=== PATIENT | female | born 1950 | race Caucasian/White ===

== ENCOUNTER → 2017-10-10 10:05 | Outpatient (CLI) | payer MEDICARE, BC, SELFPAY | PROVIDERS: Family Provider Specialist; PCP Physician Assistant; Visit Provider Nurse Practitioner Gerontology | DX: Z78.0 Asymptomatic menopausal state (principal); Z85.3 Personal history of malignant neoplasm of breast | CPT/HCPCS: 77080 ==

== ENCOUNTER → 2017-12-29 11:04 | Outpatient (CLI) | payer MEDICARE, BC, SELFPAY ==
--- NOTE | 2017-12-29 11:05 | DI.RAD.S_ITS ---
PROCEDURE: XR KNEE RT 3V INDICATIONS: RIGHT KNEE PAIN TECHNIQUE: 3 views of the knee were acquired. COMPARISON: [facility] [place], [place], BILATERAL KNEE MIN 4VW, 01/08/2014, 9:47. FINDINGS: Bones: No fractures or dislocations. No suspicious bony lesions. Severe medial compartment osteoarthritis shows progression in severity since prior study. Mild lateral and moderate femoral patellar degeneration also present. Soft tissues: Mild joint effusion. No suspicious soft tissue calcifications. IMPRESSION: Tricompartmental osteoarthritis, most severe medially. Small joint effusion. Dictated by: Roby Sumner M.D. on 12/29/2017 at 11:21 Approved by: Roby Sumner M.D. on 12/29/2017 at 11:24
== END ==
PROVIDERS: Family Provider Physician Assistant; PCP Physician Assistant; Visit Provider Physician Assistant
DX: M17.11 Unilateral primary osteoarthritis, right knee (principal); M25.461 Effusion, right knee; M25.561 Pain in right knee
CPT/HCPCS: 73562

== ENCOUNTER → 2018-02-02 08:52 | Outpatient (CLI) | payer MEDICARE, BC, SELFPAY ==
[2018-02-02 09:09] LABS: Add Manual Diff / Slide Review NO; Basophils Percent Auto 0.9 % (0-2); Eosinophils Percent Auto 0.2 % (2-4); Hematocrit 36.7 % (36-46); Hemoglobin 12.6 g/dL (12.0-16.0); Lymphocytes Percent Auto 16.7 % (25-40); Mean Corpuscular HGB Conc 34.5 % (30-36); Mean Corpuscular Hemoglobin 32.8 PG (26-34); Mean Corpuscular Volume 95.1 fL (80-100); Monocytes Percent Auto 9.1 % (3-14); Neutrophils Absolute Auto 9100 /uL (3000-5900); Neutrophils Percent Auto 73.1 % (50-75); Platelet Count 242 X10^3/uL (150-400); Red Blood Cell Count 3.86 X10^6/uL (4.0-5.2); Red Cell Distribution Width 12.5 % (11.6-14.8); White Blood Cell Count 12.4 X10^3/uL (4.5-11.0)
[2018-02-02 09:17] LABS: Alanine Aminotransferase 26 IU/L (9-52); Albumin 4.2 g/dL (3.5-5.0); Albumin Globulin Ratio 1.4 (1.0-2.8); Alkaline Phosphatase 44 U/L (38-126); Aspartate Aminotransferase 25 IU/L (14-36); BUN Creatinine Ratio 23.3 (6-22); Bilirubin Total 0.5 mg/dL (0.2-1.3); Blood Urea Nitrogen 14 mg/dL (7-17); Calcium 9.5 mg/dL (8.4-10.2); Carbon Dioxide 28 mmol/L (22-32); Chloride 103 mmol/L (98-107); Estimated Glomerular Filt Rate > 60.0 mL/min (>60); Glucose 95 mg/dL (80-110); HEMOLYSIS < 15 (0-50); Potassium 3.7 mmol/L (3.4-5.1); Sodium 140 mmol/L (137-145); Total Protein 7.2 g/dL (6.3-8.2)
== END ==
PROVIDERS: Family Provider Physician Assistant; PCP Physician Assistant; Visit Provider Nurse Practitioner Gerontology
DX: C50.912 Malignant neoplasm of unspecified site of left female breast (principal)
CPT/HCPCS: 36415; 80053; 85025

== ENCOUNTER → 2018-04-26 09:45 | Outpatient (CLI) | payer MEDICARE, BC, SELFPAY ==
--- NOTE | 2018-04-26 09:46 | DI.RAD.S_ITS ---
This blank DEXA report has been sent in error by the PACS system. The correct and complete report will be forthcoming in 1-2 days. Thank you for your patience and understanding. Dictated by: Edd Villela M.D. on 04/26/2018 at 12:19 Approved by: Edd Villela M.D. on 04/26/2018 at 12:19
== END ==
PROVIDERS: Family Provider Physician Assistant; PCP Physician Assistant; Visit Provider Physician Assistant
DX: M85.851 Other specified disorders of bone density and structure, right thigh (principal); Z78.0 Asymptomatic menopausal state; Z90.722 Acquired absence of ovaries, bilateral; E07.9 Disorder of thyroid, unspecified; Z87.891 Personal history of nicotine dependence
CPT/HCPCS: 77080; 77081

== ENCOUNTER → 2018-06-30 07:36 | Outpatient (CLI) | payer MEDICARE, BC, SELFPAY ==
--- NOTE | 2018-06-30 | DI.MG.S_ITS ---
BILATERAL DIGITAL SCREENING MAMMOGRAM 3D/2D WITH CAD: 06/30/2018 CLINICAL: Routine screening. Personal history of left breast cancer. Family history of breast cancer. Comparison is made to exams dated: 08/12/2017 mammogram, 06/29/2017 mammogram, and 06/28/2016 mammogram - [facility]. The tissue of both breasts is heterogeneously dense. This may lower the sensitivity of mammography. Current study was also evaluated with a Computer Aided Detection (CAD) system. There are a grouped calcifications in the left breast central to the nipple anterior depth. No other significant masses, calcifications, or other findings are seen in either breast. IMPRESSION: INCOMPLETE: NEEDS ADDITIONAL IMAGING EVALUATION The grouped calcifications in the left breast are indeterminate. Spot magnification views as well as additional views with possible ultrasound are recommended. This exam was interpreted at Station ID: [id number]. NOTE: For mammograms, a report in lay terms will be sent to the patient. Approximately 15% of breast malignancies will not be visualized mammographically. In the management of a palpable breast mass, a negative mammogram must not discourage biopsy of a clinically suspicious lesion. Electronically Signed By: Malia doran/raheel:06/30/2018 13:23:16 copy to: EMELIA COOK letter sent: Additional Imaging Needed ACR BI-RADS Category 0: Incomplete [id number]
[2018-06-30 09:09] LABS: Add Manual Diff / Slide Review NO; Basophils Absolute Auto 0 /uL (0-100); Basophils Percent Auto 0.6 % (0-2); Eosinophils Absolute Auto 200 /uL (0-450); Eosinophils Percent Auto 2.2 % (2-4); Hematocrit 39.4 % (36-46); Hemoglobin 13.2 g/dL (12.0-16.0); Lymphocytes Absolute Auto 2000 /uL (1100-4500); Lymphocytes Percent Auto 27.1 % (25-40); Mean Corpuscular HGB Conc 33.4 % (30-36); Mean Corpuscular Hemoglobin 32.6 PG (26-34); Mean Corpuscular Volume 97.7 fL (80-100); Monocytes Absolute Auto 700 /uL (0-900); Monocytes Percent Auto 9.8 % (3-14); Neutrophils Absolute Auto 4400 /uL (1500-7000); Neutrophils Percent Auto 60.3 % (50-75); Platelet Count 224 X10^3/uL (150-400); Red Blood Cell Count 4.04 X10^6/uL (4.0-5.2); Red Cell Distribution Width 13.2 % (11.6-14.8); White Blood Cell Count 7.3 X10^3/uL (4.5-11.0)
[2018-06-30 09:40] LABS: Alanine Aminotransferase 31 IU/L (9-52); Albumin 4.4 g/dL (3.5-5.0); Albumin Globulin Ratio 1.3 (1.0-2.8); Alkaline Phosphatase 50 U/L (38-126); Aspartate Aminotransferase 33 IU/L (14-36); BUN Creatinine Ratio 21.7 (6-22); Bilirubin Total 0.6 mg/dL (0.2-1.3); Blood Urea Nitrogen 13 mg/dL (7-17); Calcium 9.7 mg/dL (8.4-10.2); Carbon Dioxide 28 mmol/L (22-32); Chloride 101 mmol/L (98-107); Estimated Glomerular Filt Rate > 60.0 mL/min (>60); Globulin 3.4 g/dL (1.7-4.1); Glucose 96 mg/dL (80-110); HEMOLYSIS < 15 (0-50); Potassium 4.3 mmol/L (3.4-5.1); Sodium 138 mmol/L (137-145); Total Protein 7.8 g/dL (6.3-8.2)
[2018-06-30 09:45] LABS: Cholesterol 170 mg/dL (140-199); HDL Cholesterol 69 mg/dL (40-60); LDL Cholesterol Calculated 66 mg/dL (<100); Triglycerides 174 mg/dL (35-150)
[2018-06-30 09:46] LABS: Creatinine Urine Random 57.1 mg/dL
[2018-06-30 09:49] LABS: Microalbumin Urine Random 0.8 mg/dL (0-1.6)
== END ==
PROVIDERS: Family Provider Nurse Practitioner Gerontology; PCP Physician Assistant; Visit Provider Physician Assistant
DX: Z12.31 Encounter for screening mammogram for malignant neoplasm of breast (principal); Z80.3 Family history of malignant neoplasm of breast; C50.912 Malignant neoplasm of unspecified site of left female breast; I10 Essential (primary) hypertension; E78.5 Hyperlipidemia, unspecified
CPT/HCPCS: 36415; 77063; 77067; 80053; 80061; 82043; 82570; 85025

== ENCOUNTER → 2018-07-14 10:22 | Outpatient (CLI) | payer MEDICARE, BC, SELFPAY ==
--- NOTE | 2018-07-14 10:24 | DI.MG.S_ITS ---
UNILATERAL LEFT DIGITAL DIAGNOSTIC MAMMOGRAM 3D/2D WITH ADDITIONAL VIEWS POST LUMPECTOMY: 07/14/2018 CLINICAL: Additional evaluation requested from prior study. Personal history of breast cancer. Family history of breast cancer. Comparison is made to exams dated: 06/30/2018 mammogram, 06/29/2017 mammogram, and 06/28/2016 mammogram - [facility]. The tissue of left breast is heterogeneously dense. This may lower the sensitivity of mammography. There are rim calcification in the left breast central to the nipple anterior depth consistent benign with oil cysts. A biopsy clip is associated with these calcifications. No other significant masses or calcifications are seen in the breast. IMPRESSION: There is no mammographic evidence of malignancy. A 1 year screening mammogram is recommended. This exam was interpreted at Station ID: [id number]. NOTE: For mammograms, a report in lay terms will be sent to the patient. Approximately 15% of breast malignancies will not be visualized mammographically. In the management of a palpable breast mass, a negative mammogram must not discourage biopsy of a clinically suspicious lesion. Electronically Signed By: Malia Whitman M.D. lk/:07/14/2018 10:50:46 copy to: KAMILA HENDRIX letter sent: Normal Exam ACR BI-RADS Category 2: Benign Finding(s) 3342F
== END ==
PROVIDERS: Family Provider Nurse Practitioner Gerontology; PCP Physician Assistant; Visit Provider Physician Assistant
DX: R92.8 Other abnormal and inconclusive findings on diagnostic imaging of breast (principal); Z85.3 Personal history of malignant neoplasm of breast; Z80.3 Family history of malignant neoplasm of breast
CPT/HCPCS: 77065; G0279

== ENCOUNTER → 2018-08-24 11:37 | Outpatient (CLI) | payer MEDICARE, BC, SELFPAY ==
--- NOTE | 2018-08-24 | DI.MRI.S_ITS ---
PROCEDURE: MR KNEE RT WO CON INDICATIONS: Unilateral primary osteoarthritis, right knee TECHNIQUE: Noncontrast sagittal PD fast spin echo and T2 fast spin echo with fat saturation, sagittal 3-D FLASH with fat saturation; coronal T1 spin echo and PD fast spin echo with fat saturation, and axial PD fast spin echo with fat saturation through the knee. COMPARISON: None. FINDINGS: Image quality: Excellent. Menisci: There is medial meniscal flounce and suggestion of oblique tear involving anterior horn of medial meniscus extending to superior articulating surface. Peripheral displacement of medial meniscus is seen involving medial collateral ligament. Complex tear involving anterior horn of lateral meniscus is seen extending to both superior and inferior articulating surfaces. The meniscal root ligaments appear intact. Cruciate ligaments: The anterior and posterior cruciate ligaments appear intact. Medial structures: The medial collateral ligament appears intact. The posterior oblique ligament, semimembranosus tendon insertions, oblique popliteal ligament, and meniscocapsular junction appear intact. Visualized portions of the pes anserinus tendons appear normal. No abnormal bursal fluid. Lateral structures: The lateral collateral ligament, long and short heads of the biceps femoris tendon appear intact. The popliteus tendon appears normal; the popliteofibular ligament appears intact. The posterosuperior and anteroinferior popliteomeniscal fascicles appear intact. The arcuate and fabellofibular ligaments appear intact, on either side of the lateral inferior geniculate artery. Iliotibial band appears normal. Anterior structures: The quadriceps and patellar tendons appear intact. Patellar alignment is normal. No femoral trochlear dysplasia or ventral trochlear prominence. No edema in the infrapatellar fat pad. Bones and cartilage: Moderate to severe tricompartment osteoarthritis is seen most prominent in medial femoral tibial compartment with complete loss of articulating cartilage is, extensive subchondral sclerosis and edema, and prominent marginal osteophyte formation. No fracture or dislocation is noted. Moderate chondromalacia throughout the patellar cartilage is also seen. Joint space: There is small amount of joint fluid. No Velazquez's cyst. Normal appearing synovial plicae are incidentally noted. IMPRESSION: 1. [id number] tricompartmental osteoarthritis most prominent in medial femoral tibial compartment. No fracture or dislocation. Small to moderate joint effusion. No gross loose body. 2. Medial meniscal flounce and suggestion of oblique tear involving anterior horn of medial meniscus extending to superior articulating surface. Complex tear involving anterior horn of lateral meniscus extending to both superior and inferior articulating surfaces. 3. Cruciate ligaments are intact. Dictated by: Edd Villela M.D. on 08/24/2018 at 13:15 Approved by: Edd Villela M.D. on 08/24/2018 at 13:18
== END ==
PROVIDERS: PCP Physician Assistant; Visit Provider Orthopaedic Surgery
DX: M17.11 Unilateral primary osteoarthritis, right knee (principal); S83.271A Complex tear of lateral meniscus, current injury, right knee, initial encounter; M25.461 Effusion, right knee
CPT/HCPCS: 73721

== ENCOUNTER → 2018-08-31 11:19 | Outpatient (CLI) | payer MEDICARE, BC, SELFPAY | PROVIDERS: Family Provider Orthopaedic Surgery; PCP Physician Assistant; Visit Provider Physician Assistant | DX: Z01.810 Encounter for preprocedural cardiovascular examination (principal) | CPT/HCPCS: 93005 ==

== ENCOUNTER → 2018-09-27 09:34 | Outpatient (CLI) | payer MEDICARE, BC, SELFPAY ==
[2018-09-27 10:42] LABS: Hematocrit 38.8 % (36-46); Hemoglobin 13.2 g/dL (12.0-16.0); Mean Corpuscular HGB Conc 33.9 % (30-36); Mean Corpuscular Hemoglobin 33.1 PG (26-34); Mean Corpuscular Volume 97.7 fL (80-100); Platelet Count 240 X10^3/uL (150-400); Red Blood Cell Count 3.98 X10^6/uL (4.0-5.2); Red Cell Distribution Width 12.7 % (11.6-14.8); White Blood Cell Count 7.3 X10^3/uL (4.5-11.0)
[2018-09-27 10:51] LABS: Hemoglobin A1C% w Est Avg Glu 5.3 % (4.0-6.0)
[2018-09-27 10:58] LABS: Blood Urea Nitrogen 12 mg/dL (7-17); Calcium 9.6 mg/dL (8.4-10.2); Carbon Dioxide 31 mmol/L (22-32); Chloride 99 mmol/L (98-107); Estimated Glomerular Filt Rate > 60.0 mL/min (>60); Glucose 96 mg/dL (80-110); HEMOLYSIS < 15 (0-50); Potassium 4.1 mmol/L (3.4-5.1); Sodium 138 mmol/L (137-145)
[2018-09-27 11:32] LABS: Appearance Urine UA CLEAR; Bilirubin Urine UA NEGATIVE (NEGATIVE); Color Urine UA YELLOW; Glucose Urine UA NEGATIVE (Negative); Ketones Urine UA NEGATIVE (NEGATIVE); Leukocyte Esterase Urine UA NEGATIVE (NEGATIVE); Nitrite Urine UA NEGATIVE (Negative); Occult Blood Urine UA 1+ (Negative); Protein Urine UA NEGATIVE (Negative); Urobilinogen Urine UA 0.2 E.U./dL (0.2)
[2018-09-27 11:42] LABS: Bacteria Urine Occasional (0-1); Culture Indicated Urine Cult Not Indicated; RBC Urine 0-1/HPF (0-5/HPF); Squamous Epithelial Cell Urine 0-1 /HPF (0-5/HPF); WBC Urine 0-1/HPF (0-5/HPF)
== END ==
PROVIDERS: PCP Physician Assistant; Visit Provider Orthopaedic Surgery
DX: N39.0 Urinary tract infection, site not specified (principal); R73.9 Hyperglycemia, unspecified; Z01.818 Encounter for other preprocedural examination
CPT/HCPCS: 36415; 80048; 81001; 83036; 85027

== ENCOUNTER 2018-11-01 14:01 | Observation (INO) | payer MEDICARE, BC, SELFPAY ==
[2018-10-19 09:41] VITALS: BMI 28.8
[2018-10-31] VITALS (15 sets, daily range): BP systolic 91–134; BP diastolic 49–75; PULSE 59–77; RESP 10–18; TEMP 35.6–36.9; O2SAT 94–100; BMI 28.8
--- NOTE | 2018-10-31 06:00 | DI.RAD.S_ITS ---
PROCEDURE: XR KNEE RT 1TO2V INDICATIONS: post op TECHNIQUE: 2 view(s) of the knee acquired. COMPARISON: [facility], , XR KNEE RT 3V, 12/29/2017, 10:43. FINDINGS: Bones: Patient is status post knee joint arthroplasty. Hardware components are in expected positions. Visualized bony structures are intact. Soft tissues: Overlying postoperative changes are noted. IMPRESSION: Expected postoperative appearance Dictated by: Brown Camarillo M.D. on 11/01/2018 at 10:13 Approved by: Brown Camarillo M.D. on 11/01/2018 at 10:14
[2018-10-31] MEDS: LACTATED RINGERS 1,000 ML 42 ML IV ×2 (12:31→15:49)
[2018-10-31] MEDS: ACETAMINOPHEN 325 MG TABLET 975 MG PO ×2 (12:32→20:44)
[2018-10-31] MEDS: PREGABALIN 75 MG CAPSULE PO (12:32)
[2018-10-31] MEDS: CELECOXIB 200 MG CAPSULE PO (12:32)
[2018-10-31] MEDS: VANCOMYCIN 1,000 MG/200 ML PIGGYBACK 200 MG IV (12:44)
[2018-10-31] MEDS: fentaNYL 100 MCG/2 ML INJ IV (14:41)
[2018-10-31] MEDS: MIDAZOLAM 2 MG/2 ML VIAL IV (14:42)
--- NOTE | 2018-10-31 14:48 | PM.PREOP ---
Pre-operative Note Interval Note History & Physical reviewed/Exam performed by Physician: Yes Changes to H&P: No
--- NOTE | 2018-10-31 14:53 | P.OP_ITS ---
Operative Date/Time/Diagnoses Date of procedure: 10/31/18 Time of procedure: 14:59 Pre-op diagnosis: Right knee OA Post-op diagnosis: same Procedure & Clinicians Procedure: Right total knee arthroplasty Same procedure as scheduled: Yes Indications: The patient has had progressively worsening right knee pain with radiographic changes consistent with arthritis. Non-operative management has failed and the patient has requested total knee replacement. The risks, benefits and alternatives to surgery were discussed with the patient prior to proceeding. Risks discussed included, but were not limited to, failure to relieve pain, stiffness, infection, nerve damage, deep venous thrombosis, pulmonary embolism, stroke, coma, heart attack, permanent paralysis and , as well as the potential need for eventual revision of the prosthetic. Surgeon: Susan Faulkner Plastic Tile Setter: Jessica Chow Anesthesia Type: Spinal and Peripheral nerve block Operative Notes Findings: Severe right knee osteoarthritis, good stability Closure Type: primary Specimen(s): none sent Prosthetic devices, grafts, tissues, transplants, or devices: [facility] 2 size 5 femur, size 3 tibia, size 10 poly, 32 by7.5mm patella Applied: drain(s) Estimated Blood Loss (mL): 250 Blood products transfused: none Tourniquet time (min): 74 Procedure in detail: The patient was seen in the pre-operative area, where the patient identified the right knee as the operative site and this was marked with my initials. The patient received pre-operative antibiotics, and was taken to the operating room and placed on the operative table in the supine position. After satisfactory anesthesia, a production supervisor off shift out was performed. The right leg was encircled with a tourniquet about the proximal thigh, and the leg was prepared from the toes to the tourniquet with ChloroPrep in the usual fashion and draped through sterile drapes. The leg was elevated and exsanguinated with Eschmark bandage and the tourniquet inflated to [250] mmHg pressure. The knee was approached through an approximately 18 cm incision centered over the patella and carried into the knee through a medial parapatellar arthrotomy. A portion of the medial and lateral meniscus was resected. Soft tissue was carefully mobilized around the patella the patella was measured with a caliper. Bone was resected from the patella and the patellar height was reconstituted with up an appropriate sized patellar component. A cover was then placed on the patella. A small amount of additional medial and lateral meniscus was resected. The visionare guide fit well to the distal femur. It looked like an appropriate distal femoral cut and the cut was made without difficulty. The rotation was assessed and the appropriate size femoral guide was placed on the distal femur and finishing cuts were made. There was no evidence of notching. The anterior, posterior and chamfer cuts were then made. The posterior osteophytes and soft tissues were then removed. The posterior capsule was injected with part of a mixture of 60 ml 0.25% Marcaine mixed with 20 ml Exparel for post operative pain control. The remainder of this mixture was injected into the capsule and subcutaneous tissues during cement curing. The tibia was prepared and the visionaire guide fit well to the distal tibia. The rotation was assessed. The patient was placed in extension residual medial and lateral meniscus as well as any residual bone was carefully resected. [No] additional tibia was resected. Hemostasis was achieved especially posteriorly. Additional local was injected into the posterior capsule. The extension gap was assessed and additional releases for gap balancing were performed as necessary. It was checked with the gap hollow handle bench worker. The femoral component was trial was placed and the notch was finished. Trial tibial and femoral components were then placed and the knee placed through a range of motion. Range of motion was [0-130], with good stability throughout the range. The trials were then removed, and the tibia was finished. The bone was prepared with pulsatile lavage, and dried with a sponge. Cement was applied and the final prosthetics placed. Excess cement was removed during and after cement curing. A brief Betadine soak was performed. After confirming there was no extruded cement posteriorly, the final tibial insert was placed. The knee was copiously irrigated and the tourniquet deflated. Hemostasis was obtained with the Bovie. A drain was placed and brought out superolaterally. The capsule was closed with interrupted Vicryl suture. The subcutaneous layer was closed with barbed sutures, and the skin with a running 3-0 V-Lock suture and Surgical glue. An Aquacel Ag dressing was applied and the patient was taken to recovery having tolerated the procedure well. Complications: none Condition: stable Disposition: Acute Care Plan for aftercare: The patient will be maintained on a standard total knee replacement protocol with weight bearing as tolerated. The patient will receive aspirin and sequential compression devices for DVT prophylaxis. The patient will be discharged home when safe for the home environment.
[2018-10-31] MEDS: CEFAZOLIN 2 GM/100 ML FROZ.PIGGY IV ×2 (14:58→22:18)
--- NOTE | 2018-10-31 15:06 | SUR.PREOP ---
Block start time [1444] . Monitoring initiated and maintained throughout procedure. Oxygen and medications given per anesthesiologist instructions. Patient remained stable throughout procedure, no adverse reactions noted. Block end time [1453].
--- NOTE | 2018-10-31 15:33 | SUR.OPER ---
Supine on padded OR bed. Pillow under head, arms secured on padded armboards <90 degree abduction. Safety belt across torso. Non-operative leg secured with tape over blanket over lower leg. Operative leg secured in DeMayo/Adama positioner. Foam padded brace at thigh of operative leg.
[2018-10-31] MEDS: BUPIVACAINE 0.25% W/ EPI 30 ML VIAL 60 ML INJ (15:40)
[2018-10-31] MEDS: BUPIVACAINE LIPOSOME 266 MG/20 ML VIAL INJ (15:40)
--- NOTE | 2018-10-31 17:37 | SUR.PHASEI ---
1934 Dr. Faulkner spoke with patient. Patient comfortable, given ice chips/tolerated well.
--- NOTE | 2018-10-31 17:42 | SUR.PHASEI ---
report called to floor. O2 sat 91-95%; place on O2 at 2lnP. Resp unlabored; states that she brought her CPAP with her, will take to acute care. remains awake and appropriate.
--- NOTE | 2018-10-31 18:05 | SUR.PHASEI ---
1756 To room 216, clothing bag and CPAP to room, son brought in walker. A&O, denies pain/nausea, dressing remains cdi, SCDs on by AIRPLANE RENTAL CLERK. bed down and locked, call light within reach. Stable, skin warm and dry, resp unlabored. report updated.
--- NOTE | 2018-10-31 18:10 | PC.NURSE ---
Jessica shift note: Patient admitted to room 216 s/p Right TKA scheduled by Dr. Zhang. Patient awake, alert, and pleasant upon arrival. Oriented to room, environment, and plan of care. Call light within reach. Son at bedside providing supportive care.
[2018-10-31] MEDS: LACTATED RINGERS 1,000 ML 125 ML IV (18:29)
[2018-10-31] MEDS: ASPIRIN EC 81 MG TABLET PO (20:45)
[2018-10-31] MEDS: DOCUSATE 100 MG CAPSULE PO (20:45)
[2018-10-31] MEDS: SIMVASTATIN 40 MG TABLET PO (20:45)
[2018-10-31] MEDS: OXYCODONE IR 5 MG TABLET PO ×2 (20:46→23:22)
[2018-10-31] MEDS: HYDROMORPHONE 2 MG TABLET PO (21:32)
[2018-11-01] MEDS: HYDROMORPHONE 2 MG TABLET PO ×4 (00:37→14:53)
[2018-11-01] MEDS: OXYCODONE IR 5 MG TABLET PO ×2 (02:41→06:58)
[2018-11-01 03:25] VITALS: BP 118/59; PULSE 80; RESP 17; TEMP 36.6; O2SAT 95
[2018-11-01 05:38] LABS: Hematocrit 34.3 % (36-46); Hemoglobin 11.8 g/dL (12.0-16.0)
[2018-11-01] MEDS: CEFAZOLIN 2 GM/100 ML FROZ.PIGGY IV (06:35)
[2018-11-01 07:30] VITALS: BP 129/65; PULSE 77; RESP 16; TEMP 36.6; O2SAT 100
--- NOTE | 2018-11-01 07:30 | PM.PNPO.1 ---
Subjective Date Patient Seen: 11/01/18 Time Patient Seen: 07:30 Interval history: POD #1 status post right total knee arthroplasty with Dr. Faulkner. She noted some pain control issues last night and required Dilaudid. She got behind on taking her pain medication. She has not been up with physical therapy yet. She is eating and voiding without difficulty or assistance. Exam Vital Signs (past 8 hours): - 10/31/18 23:50 11/01/18 03:25 Temperature 97.9 F 97.9 F Pulse Rate 67 80 Respiratory Rate 16 17 Blood Pressure 126/66 118/59 L Pulse Oximetry 97 95 Oxygen Delivery Method Nasal Cannula Oxygen Flow Rate 0 Narrative Exam Narrative: Patient lying in bed in no acute distress. She is alert and oriented x3. Dressing on right knee is CDI. Jovany wrap in place. Hemovac drain in place. Sedation intact light touch throughout bilateral lower extremities. Calves are soft, compressible, nontender bilaterally. Objective Labs Result Diagrams: 11/01/18 04:55 Labs: Laboratory Results - last 24 hr 11/01/18 04:55 Hgb 11.8 L Hct 34.3 L Assessment & Plan Post-op (1) S/P total knee arthroplasty: (2) Hyperlipidemia: Postoperative Procedures Operation Date: 10/31/18 13:45 Actual Procedures Side Surgeon p Total Knee Arthroplasty Right Susan Faulkner MD Patient will mobilize with physical therapy today. Patient was instructed to stay ahead of the pain today. She is mobilizing safelyh adequate pain control today she could go home. If not DC tomorrow.
[2018-11-01] MEDS: ONDANSETRON 4 MG ODT PO (08:14)
[2018-11-01] MEDS: MAGNESIUM OXIDE 400 MG TABLET PO (08:16)
[2018-11-01] MEDS: ASPIRIN EC 81 MG TABLET PO (08:16)
[2018-11-01] MEDS: DOCUSATE 100 MG CAPSULE PO (08:16)
[2018-11-01] MEDS: MULTIVITAMIN 1 TABLET 1 TAB PO (08:16)
[2018-11-01] MEDS: TAMOXIFEN 10 MG TABLET 20 MG PO (08:16)
[2018-11-01] MEDS: MELOXICAM 7.5 MG TABLET 15 MG PO (08:16)
[2018-11-01] MEDS: ACETAMINOPHEN 325 MG TABLET 975 MG PO ×2 (08:17→14:53)
--- NOTE | 2018-11-01 09:21 | PT.IIE ---
Current Diagnoses Hyperlipidemia, unspecified (10/31/18) Unilateral primary osteoarthritis, right knee (10/31/18) Presence of unspecified artificial knee joint (10/31/18) Surgery Performed Operation Date: 10/31/18 13:45 Actual Procedures p Total Knee Arthroplasty(Right) - Susan Faulkner MD Surgical History (Last Updated 10/19/18 @ 10:19 by Jo Ann Zelaya, RN) History of colonoscopy (Acute) Hx of lymph node excision (Acute) Anesthesia (Resolved) History of total hip arthroplasty (Resolved 12/2014) Hx of tonsillectomy (Resolved Unknown) History of cataract removal with insertion of prosthetic lens History of lumpectomy (~07/2015) Status post surgery (08/30/16) Medical History (Last Updated 10/20/18 @ 08:07 by Jo Ann Zelaya RN) Essential hypertension (Chronic) Hyperlipidemia (Chronic 09/09/10) 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) H/O: hysterectomy (Acute) HTN (hypertension) (Acute) Irregular heartbeat (Acute) Osteoarthritis (Acute) Pneumonia (Acute) Retinal detachment, right (Acute ~11/2016) Sleep apnea (Acute) Breast cancer (Chronic ~2015) Shoulder pain (Chronic ~2015) Basal cell carcinoma of skin (Resolved 2012) Physical Therapy Inpatient Evaluation/Re-Eval M1 PT/OT-IP Prior Functional Status Start: 11/01/18 12:24 Freq: NEEDED Status: Active Protocol: Document 11/01/18 09:21 AB (Rec: 11/01/18 12:37 AB [id number]) Medical Review Prior Functional Status Medical History Reviewed Yes Communication able to make needs known Mobility and Gait pt stated that she is independent with all mobilities and ambulation without AD but occasionally uses a SPC first thing in the morning for stability Social History Household Members none Living Arrangements House Number of Floors (Floors) Two Floors Number of Stairs To Enter/Railing? pt stays on main level of the house has a ramp to enter Home Environment High Toilet Walk in Shower Built-In Shower Seat Home Equipment Front Wheel Walker Four Wheel Walker Manual Wheelchair Lift Recliner Grab Bars Near Toilet Grab Bars In Shower Employment Status Retired Additional Social History Comment son/pnhnyeoa-by-pky lives ~ 1 block away from pt and son stated that they can stay with her for the first few days if needed M2 PT-IP Current Condition Start: 11/01/18 12:24 Freq: NEEDED Status: Active Protocol: Document 11/01/18 09:21 AB (Rec: 11/01/18 12:37 AB [id number]) Physical Therapy Current Condition Current Condition Evaluation Date 11/01/18 Treatment Diagnosis s/p R TKA; difficulty in walking Onset Date 10/31/18 Precautions Other Precautions Falls Weight Bearing Status Weight Bearing Status Weight Bear as Tolerated M3 PT-IP Subjective Start: 11/01/18 12:24 Freq: NEEDED Status: Active Protocol: Document 11/01/18 09:21 AB (Rec: 11/01/18 12:37 AB [id number]) Subjective Physical Therapy Visit Type Type Initial Evaluation Visit Start Time 09:21 Visit Stop Time 10:06 Total Visit Minutes 45 Number of CHANGE HOUSE ATTENDANT Visits 0 Physical Therapy Visit Comments Patient Comments pt agreeable to do PT Therapy Pain Assessment Pain When Pain Assessed At Rest Pain Present Pain Present Pain Reported Location Right Knee Intensity 3 Scale Used increases to 5/10 with movement Pain Management Techniques Apply Cold Re-positioning Timing of Activity with Medications M4 PT-IP Mobility and Gait Start: 11/01/18 12:24 Freq: NEEDED Status: Active Protocol: Document 11/01/18 09:21 AB (Rec: 11/01/18 12:37 AB [id number]) PT-Bed Mobility Assessment Supine to Sit Supine to Sit Minimal Assistance 1 Person Assistance PT-Transfer Assessment Sit to and From Stand Sit to and from Stand Moderate Assistance 1 Person Assistance Use of Upper Extremities Equipment Transfer Assistive Device Gait Belt Front Wheeled Walker Orthotic/Prosthetic Devices or Brace: No Transfers Transfer Destination Chair Transfer Technique pt ambulated using FWW Transfer Ability Level of Assist Moderate Assistance 1 Person Assistance Use of Upper Extremities Gait Assessment Gait Gait Assistance Required: Moderate Assistance Distance (Feet) 12 Able to Maintain Weight Bearing Status Yes During Gait Assistive Devices Assistive Device Gait Belt Front Wheeled Walker Orthotic/Prosthetic Devices or Brace: No Gait Deviations General Gait Pattern Antalgic Decreased Stride Length Decreased Feet Clearance Step-to Gait Factors Limiting Gait Function Factors Limiting Gait Function Decreased Activity Tolerance Decreased Strength Limited Range of Motion Pain Poor Balance Poor Safety Awareness Comments Gait Comments pt ambulated from bed to the chair using FWW ~ 12 ft requiring mod A and cues. pt with unsteady gait and decrease R LE control requiring assist to stabilize RLE during ambulation. PT-Balance Assessment Sitting Balance and Reactions Static Sitting Balance Ability Good Dynamic Sitting Balance Ability Good Standing Balance and Reactions Static Standing Balance Ability Fair Dynamic Standing Balance Ability Poor Device Used FWW M5 PT-IP Objective Assessments Start: 11/01/18 12:24 Freq: NEEDED Status: Active Protocol: Document 11/01/18 09:21 AB (Rec: 11/01/18 12:37 [id number]) Orientation Orientation/Cognition Level of Alertness Alert Orientation Name Age Birthday Month Date Year Day of Week Place Situation Language Function Ability No Deficits Noted Safety Awareness Understands Safety Issues Gross Range of Motion Lower Extremity ROM Assessment Right Impaired Impairments R knee flexion: ~ 40 deg R knee extension: 15 degrees less to 0 Strength Lower Extremity Strength Assessment Right Impaired Hip 3+/5 Knee 3-/5 Coordination Assessment Gross Coordination Gross Coordination WNL Sensation Assessment Sensation Gross Sensation WNL Light Touch Intact Proprioception (Position) Intact M6 PT-IP Treatment Start: 11/01/18 12:24 Freq: NEEDED Status: Active Protocol: Document 11/01/18 09:21 AB (Rec: 11/01/18 12:37 [id number]) Physical Therapy Treatment Exercises Exercises Quad Sets Heel Slides Education Education Provided Precautions Weight Bearing Status Post-Op Packet Safety M7 PT-IP Assessment and Plan Start: 11/01/18 12:24 Freq: NEEDED Status: Active Protocol: Document 11/01/18 09:21 AB (Rec: 11/01/18 12:37 [id number]) PT Summary Assessment and Plan Potential Rehabilitation Potential Good Status of Condition at Evaluation Evolving Summary Impairments Pain ROM Strength Balance Coordination Sensation Tone Cognition Bed Mobility Transfers Gait Activity Tolerance Assessment Summary pt requiring mod A with mobility and unable to tolerate much activity this morning. d/c plan is go home but pt is not ready to go home as of this morning. will have to assess how pt performs this afternoon. pt plans to go home with family to assist her. caregiver training will be conducted when appropriate. Goals Bed Mobility Goal Standby Assistance Transfer Goal Standby Assistance Front Wheeled Walker Gait Goal Standby Assistance Front Wheel Walker Gait Distance 200 Days to Meet Goals 5 Frequency of Treatment Frequency Of Treatment Twice a Day Treatment Plan Physical Therapy Treatment Plan Bed Mobility Training Transfer Training Gait Training Therapeutic Exercise Balance Retraining Post Op Education Discharge Planning Hot or Cold Pack Neuromuscular Re-ed Coordination Retraining Manual Therapy Other Recommendations and Next Treatment ambulation, caregiver training Focus , bed mobility Recommendations To Nursing Amount of Assist Needed 1 Person Assist Discharge Recommendations PT Discharge Recommendations Home with Assistance Outpatient PT
--- NOTE | 2018-11-01 10:30 | CM.DANOTE ---
DCP/Assessment: Reviewed chart. Patient is a 67yr old female admitted to [facility] for right TKA performed on 11-01-[address] Faulkner. PCP listed is Jyothi Monzon. Primary payor is 1)Medicare 2)[facility]. Met with patient and son/Merlin at bedside explained CM/SW role. Patient sitting in recliner alert and oriented. Patient seen by therapy this AM and it is anticipated that patient will most likely d/c tomorrow. Patient has been having a lot of pain today. Therapy does plan to see patient again this afternoon. Patient reports that she has all needed DME and family close by for support. Patient planning on going to outpatient therapy at [facility] after discharge. P: Home when stable. CM team to continue to follow closely if needs were to arise. Current plan is for patient to go home with supportive family and outpatient therapy. MANISH Sierra Discharge Planning/Care Management CM Discharge Assessment Start: 11/01/18 10:25 Freq: Status: Active Protocol: Document 11/01/18 10:25 KJS (Rec: 11/01/18 10:30 KJS [id number]) Discharge Planning Assessment Assigned Labor Service Representative MANISH Sierra Contact Information Merlin Schwab (son) [phone] Advance Directives? No: Declines further information History Provided By Patient Family Member Medical Record Prior Living Arrangements House Household Members none Type of transporation used prior to Drives own vehicle admit Independent with ADL's Yes Is patient alert and oriented? Yes Caregiver for Another No DME Already Rented / Owned FWW / Walker Comment Has ramp to enter residence if needed. Patient/Family Preference OP PT Therapy Barriers to Discharge No Discharge Plan Home Transportation Arrangement Family to provide transport. Whiteboard Updated in Patient Room with Yes name and ext. # of Labor Service Representative Review Status In Process Next Review Type Continued Stay Review Pre-Anesthesia Assessment Start: 10/19/18 09:41 Freq: Status: Active Protocol: Document 10/19/18 09:41 CAB (Rec: 10/19/18 10:40 CAB [id number]) Pre-Anesthesia Assessment Patient Information Reviewed Via Phone Assessment Assessment Completed With Patient Diagnostic Results BMP/CMP CBC EKG Urinalysis Other Comment A1c. Labs/EKG @ [facility] 09/27/18. EKG from PCP 08/2018 - WNL scanned to record Primary Care Provider Jyothi Monzon Seen Specialist in Last 12 Months Yes Specialist Seen Oncologist Orthopedist Primary Language [place] Fuel Retrofitting Technician Required No Height 162.56 cm Weight 76.204 kg Body Mass Index (BMI) 28.8 Hearing Ability Normal Visual Assist Glasses Dentition Type Teeth, Natural Present Barriers to Learning None Other Aids Yes: CPAP Hx Anesthesia Reactions No Hx Family Anesthesia Reaction No Hx Malignant Hyperthermia No Hx Blood Transfusions No Anesthesia Review Requested No Maternal Fetal Physician No alcohol intake current alcohol intake frequency a few times a week Smoking Status Never smoker Substance Use Type does not use Pain Present Pain Reported Musculoskeletal Symptoms Difficulty Walking Joint Pain History of Falling (Recent or History of Yes ) Patient is completely paralyzed or No completely immobile Mental Status Oriented to own ability Is patient on oxygen? No Does patient have MORE/SOB No Hx Sleep Apnea Yes CPAP/BIPAP use prescribed and used routinely Will Bring CPAP/BIPAP DOS Yes Currently Taking a Beta Hector No Can You Climb a Flight of Stairs Without Yes SOB Hx Chest Pain No Hx SOB No Hx Syncope or Dizziness No Anti-Coagulant Therapy No Has a Truck Driver Helper Yes: Dr. Virk - last visit Cardiac Testing Yes: Echo EF 60% 10/05/18, ZIO Patch 09/13/18 Hx Pacemaker/ICD No Pacemaker Rep Required? No Comment Cardiac records scanned to chart Diet Type At Home Regular dysphagia No Urinary Catheter Present No Hx Urinary Self Catheterization No Diabetes No HgbA1C 5.3 Date 09/27/18 Patient No Lactating No Hx Drug Resistant Organism No Presence of External or Internal Medical Yes: CPAP, Left hip prosthesis Devices , bilateral eye lens Have you traveled outside the [facility] States in the last 30 days? Marital Status / Lives With none Prior Living Arrangements House Number of Floors (Floors) Two Floors Support System Child/Children Does the Patient Have Assistance After Yes Surgery Patient Discharge Plan Description Return Home Comment Pt advised overnight length of stay per surgeon's office Feels Safe in Current Environment Yes Been Physically Hurt or Threatened By a No Person in Current Environment Do you have thoughts of harming yourself None or others? Are you currently considering suicide? No Do you have a plan to hurt yourself or No Plan others? Do You Have Any Spiritual Beliefs That No May Affect Your HC Choices? Do You Have Any Cultural Practices That No May Affect Your HC Choices? Spiritual Referral None Comment Restorationist Who Can We Speak to About Patient's Care Family, friends Identifying Code for Release of Patient Declines to issue Information Health Care Proxy/Next of Kin Merlin (son) Health Care Proxy Emergency Contact Name Merlin (son) Emergency Contact Advance Directives? No: Declines further information Power of School Lunch Manager Yes Power of School Lunch Manager Name Merlin (gerardo) Power of School Lunch Manager PAC Instructions Bring CPAP/BIPAP Do not shave/clip surgical site Durable medical equipment Medications to take/avoid Nasal antibiotic No ETOH/petroleum product on skin DOS NPO Post-op transportation Pre-surgical wash Sturdy shoes/comfortable clothes Do not bring valuables and remove jewelry
--- NOTE | 2018-11-01 11:19 | PC.NURSE ---
Addendum entered by Danuta Pack R.N. 11/01/18 15:41: Pt given 2mg of dilaudid around 1430. She denies discomfort and will be discharging to home shortly. Original Note: PT given 2mg of po dilaudid for pain to r.knee. Up with pt and now sitting up in chair. She denies discomfort at this time. Will work with physical therapy again this afternoon. Given lesli earlier this am for complaints of nausea and this has resolved now.
[2018-11-01 11:25] VITALS: BP 131/101; PULSE 72; RESP 16; TEMP 36.6; O2SAT 99
--- NOTE | 2018-11-01 14:17 | PT.IPTN ---
Current Diagnoses Hyperlipidemia, unspecified (10/31/18) Unilateral primary osteoarthritis, right knee (10/31/18) Presence of unspecified artificial knee joint (10/31/18) Surgery Performed Operation Date: 10/31/18 13:45 Actual Procedures p Total Knee Arthroplasty(Right) - Susan Faulkner MD Physical Therapy Treatment Note M2 PT-IP Current Condition Start: 11/01/18 12:24 Freq: NEEDED Status: Active Protocol: Document 11/01/18 09:21 AB (Rec: 11/01/18 12:37 AB [id number]) Physical Therapy Current Condition Current Condition Evaluation Date 11/01/18 Treatment Diagnosis s/p R TKA; difficulty in walking Onset Date 10/31/18 Precautions Other Precautions Falls Weight Bearing Status Weight Bearing Status Weight Bear as Tolerated M3 PT-IP Subjective Start: 11/01/18 12:24 Freq: NEEDED Status: Active Protocol: Document 11/01/18 14:00 GGD (Rec: 11/01/18 14:17 GGD [email or web address]) Subjective Physical Therapy Visit Type Type Treatment Note Visit Start Time 13:30 Visit Stop Time 14:00 Total Visit Minutes 30 Number of SCREENING NURSE Visits 1 Physical Therapy Visit Comments Patient Comments Pt willing to work with therapy. Therapy Pain Assessment Pain When Pain Assessed At Rest Pain Present Pain Present Pain Reported Location Right Knee Intensity 3 Pain Management Techniques Apply Cold Re-positioning Timing of Activity with Medications M4 PT-IP Mobility and Gait Start: 11/01/18 12:24 Freq: NEEDED Status: Active Protocol: Document 11/01/18 14:00 GGD (Rec: 11/01/18 14:17 GGD [id number]) PT-Bed Mobility Assessment Sit to Supine Sit to Supine Contact Guard Assistance Scooting Scooting to Edge of Bed Standby Assistance PT-Transfer Assessment Sit to and From Stand Sit to and from Stand Standby Assistance Use of Upper Extremities Equipment Transfer Assistive Device Gait Belt Front Wheeled Walker Orthotic/Prosthetic Devices or Brace: No Transfers Transfer Destination Bed Transfer Ability Level of Assist Contact Guard Assistance Use of Upper Extremities Gait Assessment Gait Gait Assistance Required: Standby Assistance Distance (Feet) 70 Able to Maintain Weight Bearing Status Yes During Gait Assistive Devices Assistive Device Gait Belt Front Wheeled Walker Orthotic/Prosthetic Devices or Brace: No Factors Limiting Gait Function Factors Limiting Gait Function Decreased Activity Tolerance Decreased Strength Limited Range of Motion Pain Poor Balance Poor Safety Awareness M5 PT-IP Objective Assessments Start: 11/01/18 12:24 Freq: NEEDED Status: Active Protocol: Document 11/01/18 09:21 AB (Rec: 11/01/18 12:37 AB [id number]) Orientation Orientation/Cognition Level of Alertness Alert Orientation Name Age Birthday Month Date Year Day of Week Place Situation Language Function Ability No Deficits Noted Safety Awareness Understands Safety Issues Gross Range of Motion Lower Extremity ROM Assessment Right Impaired Impairments R knee flexion: ~ 40 deg R knee extension: 15 degrees less to 0 Strength Lower Extremity Strength Assessment Right Impaired Hip 3+/5 Knee 3-/5 Coordination Assessment Gross Coordination Gross Coordination WNL Sensation Assessment Sensation Gross Sensation WNL Light Touch Intact Proprioception (Position) Intact M6 PT-IP Treatment Start: 11/01/18 12:24 Freq: NEEDED Status: Active Protocol: Document 11/01/18 14:00 GGD (Rec: 11/01/18 14:17 GGD [email or web address]) Physical Therapy Treatment Exercises Exercises Ankle Pumps Gluteal Sets Quad Sets Heel Slides Seated Knee Flexion/Extension Education Education Provided Safety M7 PT-IP Assessment and Plan Start: 11/01/18 12:24 Freq: NEEDED Status: Active Protocol: Document 11/01/18 14:00 GGD (Rec: 11/01/18 14:17 GGD [email or web address]) PT Summary Assessment and Plan Summary Assessment Summary Pt improving with mobility. She was able to progress gait distance with improved right LE control. She did need cues for gait pattern. She was safe with bed mobility. She is safe for home D/C when medically stable. Frequency of Treatment Frequency Of Treatment Twice a Day Treatment Plan Physical Therapy Treatment Plan Bed Mobility Training Transfer Training Gait Training Therapeutic Exercise Balance Retraining Post Op Education Discharge Planning Hot or Cold Pack Neuromuscular Re-ed Coordination Retraining Manual Therapy Recommendations To Nursing Amount of Assist Needed 1 Person Assist Discharge Recommendations PT Discharge Recommendations Home with Assistance Outpatient PT
[2018-11-01] MEDS: LISINOPRIL 10 MG TABLET PO (14:53)
[2018-11-01] MEDS: hydroCHLOROthiazide 12.5 MG CAPSULE PO (14:53)
--- NOTE | 2018-11-01 16:09 | PC.NURSE ---
Patient w/discharge orders, iv removed and HV, pt tolerated well. See discharge assessment for more info.
== END 2018-11-01 16:15 | disposition home or self-care (01) ==
LOC: AC 14:21 → OR 16:46 → AC 16:49 → OR 16:49
PROVIDERS: Admitting Provider Physician Assistant; PCP Physician Assistant; Visit Provider Orthopaedic Surgery
PROC: 0SRC0JZ Replacement of Right Knee Joint with Synthetic Substitute, Open Approach (ICD-10-PCS; CPT 27447; principal; 2018-10-31 13:45)
DX: M17.11 Unilateral primary osteoarthritis, right knee (principal); G89.18 Other acute postprocedural pain; I10 Essential (primary) hypertension; G47.33 Obstructive sleep apnea (adult) (pediatric); E78.5 Hyperlipidemia, unspecified
CPT/HCPCS: 27447; 36415; 64447; 64450; 73560; 85014; 85018; 97116; 97162; 97530; C1776; G0378; C9290; J0690; J2250; J2704; J3010

== ENCOUNTER → 2019-01-29 08:20 | Outpatient (CLI) | payer MEDICARE, BC, SELFPAY ==
[2018-10-31 18:02] VITALS: BMI 28.8
[2019-01-29 08:44] LABS: Influenza A and B by PCR Rapid Negative (Negative)
== END ==
PROVIDERS: PCP Physician Assistant; Visit Provider Physician Assistant
DX: R68.89 Other general symptoms and signs (principal)
CPT/HCPCS: 87400; 87502

== ENCOUNTER 2019-02-06 12:00 | Outpatient (RCR) | payer MEDICARE, BC, SELFPAY ==
--- NOTE | 2018-10-26 16:00 | PT.OPPOC ---
Current Diagnoses Unilateral primary osteoarthritis, right knee (10/26/18) Pain in right knee (10/26/18) Provider Visit Care Team Role Provider Type Jyothi Monzon PA-C Primary Care Provider Advanced Wigs Salesperson Specialty: Medical Address: [address] [place] [address], [id number] Email: [email or web address] Susan Faulkner MD Attending Provider Physician Specialty: Orthopedic Surgery Address: [address] [place] [address], [id number] Email: [email or web address] Plan Of Care PT-OP-T Assessment and Plan Start: 10/26/18 19:01 Freq: Status: Active Protocol: Document 10/26/18 16:00 DLM (Rec: 10/31/18 19:16 DLM [email or web address]) Physical Therapy Assessment Rehab Potential Rehabilitation Potential Good Evaluation Complexity Number of Personal Factors/Comorbidities 1-2 Number of Body Systems Impaired 4 or More Clinical Presentation at Evaluation Evolving Impairments Impairments Activity Tolerance Gait Pain ROM Strength Goals One Short Term Goal (STG) Provide Pre-op education before TKA surgery STG Duration 1 visit Manager Trust Goal (LTG) Establish new goals upon re- evaluation after TKA surgery LTG Duration Next visit Progress Towards Goals Progress Comments provided pre-op education, pt did not bring in her FWW for adjustment Assessment Summary Assessment Britney attended this pre-op appointment before a scheduled TKA on Tuesday. Pre-op education provided. Will plan a re-evaluation for after surgery to establish full plan of care for TKA. Physical Therapy Plan Frequency and Duration Frequency of Treatment resume after TKA sx Duration of Treatment establish at re-eval after surgery Therapeutic Interventions Therapeutic Interventions Home Exercise Program Patient/Caregiver Education Therapeutic Activities Therapeutic Exercises Other Therapeutic Interventions Revise at post-op re- evaluation Next Visit Focus/Plan Next Note Type Re-Evaluation Next Visit Plan re-evaluation after surgery for TKA Please Sign and Return: I have reviewed this Plan of Care and certify that the skilled therapy services above are required to meet the patient?s needs. Physician Signature Date Printed Name and Credentials C
--- NOTE | 2018-10-26 16:00 | PT.OIE ---
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) H/O: hysterectomy (Acute) HTN (hypertension) (Acute) Irregular heartbeat (Acute) Osteoarthritis (Acute) Pneumonia (Acute) Retinal detachment, right (Acute ~11/2016) Sleep apnea (Acute) Breast cancer (Chronic ~2015) Shoulder pain (Chronic ~2015) Basal cell carcinoma of skin (Resolved 2012) Past Surgical History (Last Updated 10/19/18 @ 10:19 by Jo Ann Zelaya RN) History of colonoscopy (Acute) Hx of lymph node excision (Acute) Anesthesia (Resolved) History of total hip arthroplasty (Resolved 12/2014) Hx of tonsillectomy (Resolved Unknown) History of cataract removal with insertion of prosthetic lens History of lumpectomy (~07/2015) Status post surgery (08/30/16) Provider Visit Care Team Role Provider Type Jyothi Monzon PA-C Primary Care Provider Advanced Dry Wall Installer Specialty: Medical Address: [address] [place] [address], [id number] Email: [email or web address] Susan Faulkner MD Attending Provider Physician Specialty: Orthopedic Surgery Address: [address] [place] [address], [id number] Email: [email or web address] Initial Evaluation PT-OP-A Visit Information Start: 10/26/18 19:01 Freq: Status: Active Protocol: Document 10/26/18 16:00 DLM (Rec: 10/30/18 08:26 DLM [email or web address]) Out-Patient Physical Therapy Visit Information Visit Information Visit Type Initial Evaluation Visit Note Pre-op appointment for TKA Visit Start Time 16:00 Visit Stop Time 16:45 Total Visit Minutes 45 Visit Number 1 Number of AWNING ERECTOR Visits 0 Evaluation Information Evaluation Date 10/26/18 Precautions Precautions surgery planned for Tuesday PT-OP-B Current Condition Start: 10/26/18 19:01 Freq: Status: Active Protocol: Document 10/26/18 16:00 DLM (Rec: 10/30/18 08:26 DLM [email or web address]) Current Condition History of Current Condition Onset Date Progressive Current Complaints Right knee pain, TKA planned for Tuesday History of Current Condition She gradually developed bilateral knee pain due to arthritis. The decision was made to do surgery on the right knee first. Surgery is scheduled for Tuesday. She hopes to have surgery on left knee at a later date. Future Testing and Treatments Planned right TKA scheduled Treatment Goals Patient/Caregiver Goals be able to walk without pain after surgery Prior Functional Status Baseline Function- ADL's Independent Baseline Function- Mobility Independent Baseline Function- Gait Independent without device Baseline Function- Work/School Retired Baseline Function- Recreation/Hobbies Independent, active Baseline Function- Other she has two story house but does not have to do the stairs , can stay on main level Current Functional Impairments (Reported) Functional Limitations- ADL's Independent Functional Limitations- Mobility/Gait Independent but pain limits distances of walking Functional Limitations- Recreation/ Independent but activity level Hobbies limited by knee pain Functional Limitations- Other she owns a FWW, did not bring it today, has help planned for after surgery Personal Factors Other Personal Factors That May Effect history of left BRIAN Therapy/Recovery PT-OP-C Subjective Start: 10/26/18 19:01 Freq: Status: Active Protocol: Document 10/26/18 16:00 DLM (Rec: 10/30/18 08:26 DL [email or web address]) Patient Questionnaires Lower Extremity Functional Scale LEFS Score 38/80 LEFS Impairment 40 to 59% Impaired (Score 32- 47) OP-PT Pain Assessment Pain Assessment Grid Paper Pain Assessment Grid Completed Yes: copy in paper chart Location Right Knee Pain Location Details 4-7/10 pain Intensity 4 Scale Used Numeric (1 - 10) Description Aching Frequency Intermittent Pain Aggravating Factors Standing Walking Stair Climbing Bending Pain Alleviating Factors Medication Rest Left Knee Pain Location Details 4-7/10 pain Intensity 4 Scale Used Numeric (1 - 10) Description Aching Frequency Intermittent Pain Alleviating Factors Medication Rest PT-OP-G Mobility & Gait Start: 10/26/18 19:01 Freq: Status: Active Protocol: Document 10/26/18 16:00 DLM (Rec: 10/30/18 08:26 DLM [email or web address]) OP Mobility Evaluation Bed Mobility Rolling Independent Supine to and from Sit Independent Transfers Sit to Stand independent with UE's, educated pt on how to kick foot out like she will use after surgery to manage right knee pain after TKA Bed to Chair Transfers Independent Car Transfers educated pt to sit then turn when getting into car OP Gait Assessment Gait Gait Assistance Required: Independent Assistive Devices Assistive Device None Gait Deviations General Gait Pattern Antalgic Factors Limiting Gait Function Factors Limiting Gait Function Pain Stair Climbing Evaluation Evaluation Level of Assist On Stairs Independent Devices Stair Climbing Assistive Devices Left Railing Technique/Endurance Stair Climbing Direction Ascend and Descend Stair Climbing Technique Step Over Step Comments Stair Climbing Comments educated pt in using step-to pattern for right knee management after surgery PT-OP-K Range of Motion Start: 10/26/18 19:01 Freq: Status: Active Protocol: Document 10/26/18 16:00 DLM (Rec: 10/30/18 08:26 DLM [email or web address]) Knee Goniometric Range of Motion Knee Right Patient Position Supine Flexion Active (degrees) 111 Extension Active (degrees) 0 Left Patient Position Supine Flexion Active (degrees) 103 Extension Active (degrees) 0 PT-OP-M Strength Start: 10/26/18 19:01 Freq: Status: Active Protocol: Document 10/26/18 16:00 DLM (Rec: 10/30/18 10:57 DLM [email or web address]) Hip Strength Hip Manual Muscle Testing Right Flexion (L2) 5 Normal Extension (S1) 5 Normal Abduction 5 Normal Adduction 5 Normal External Rotation 5 Normal Internal Rotation 5 Normal Left Flexion (L2) 4+ Good+ Extension (S1) 5 Normal Abduction 4+ Good+ Adduction 5 Normal External Rotation 5 Normal Internal Rotation 5 Normal Knee Strength Knee Manual Muscle Testing Right Flexion (S2) 5 Normal Extension (L3) 5 Normal Left Flexion (S2) 5 Normal Extension (L3) 4+ Good+ Reason Not Measured Pain Ankle/Foot Strength Ankle and Foot Manual Muscle Testing Right Dorsiflexion (L4) 5 Normal Plantarflexion (S1) 5 Normal Left Dorsiflexion (L4) 5 Normal Plantarflexion (S1) 5 Normal PT-OP-Q Treatments Start: 10/26/18 19:01 Freq: Status: Active Protocol: Document 10/26/18 16:00 DLM (Rec: 10/30/18 10:58 DLM [email or web address]) Self-Care/Home Management Treatment Education Patient Education Home Exercise Program Other Education post-op TKA exercises Activities Self-Care/Home Management Activities pre-op education for TKA PT-OP-T Assessment and Plan Start: 10/26/18 19:01 Freq: Status: Active Protocol: Document 10/26/18 16:00 DLM (Rec: 10/31/18 19:16 DLM [email or web address]) Physical Therapy Assessment Rehab Potential Rehabilitation Potential Good Evaluation Complexity Number of Personal Factors/Comorbidities 1-2 Number of Body Systems Impaired 4 or More Clinical Presentation at Evaluation Evolving Impairments Impairments Activity Tolerance Gait Pain ROM Strength Goals One Short Term Goal (STG) Provide Pre-op education before TKA surgery STG Duration 1 visit Alf Goal (LTG) Establish new goals upon re- evaluation after TKA surgery LTG Duration Next visit Progress Towards Goals Progress Comments provided pre-op education, pt did not bring in her FWW for adjustment Assessment Summary Assessment Britney attended this pre-op appointment before a scheduled TKA on Tuesday. Pre-op education provided. Will plan a re-evaluation for after surgery to establish full plan of care for TKA. Physical Therapy Plan Frequency and Duration Frequency of Treatment resume after TKA sx Duration of Treatment establish at re-eval after surgery Therapeutic Interventions Therapeutic Interventions Home Exercise Program Patient/Caregiver Education Therapeutic Activities Therapeutic Exercises Other Therapeutic Interventions Revise at post-op re- evaluation Next Visit Focus/Plan Next Note Type Re-Evaluation Next Visit Plan re-evaluation after surgery for TKA
--- NOTE | 2018-11-07 09:02 | PT.OTRE ---
Current Diagnoses Unilateral primary osteoarthritis, right knee (11/07/18) Pain in right knee (11/07/18) Difficulty in walking, not elsewhere classified (11/07/18) Presence of right artificial knee joint (11/07/18) Past Medical History (Last Updated 10/20/18 @ 08:07 by Jo Ann Zelaya, RN) Essential hypertension (Chronic) Hyperlipidemia (Chronic 09/09/10) 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) H/O: hysterectomy (Acute) HTN (hypertension) (Acute) Irregular heartbeat (Acute) Osteoarthritis (Acute) Pneumonia (Acute) Retinal detachment, right (Acute ~11/2016) Sleep apnea (Acute) Breast cancer (Chronic ~2015) Shoulder pain (Chronic ~2015) Basal cell carcinoma of skin (Resolved 2012) Surgical History (Last Updated 10/19/18 @ 10:19 by oJ Ann Zelaya RN) History of colonoscopy (Acute) Hx of lymph node excision (Acute) Anesthesia (Resolved) History of total hip arthroplasty (Resolved 12/2014) Hx of tonsillectomy (Resolved Unknown) History of cataract removal with insertion of prosthetic lens History of lumpectomy (~07/2015) Status post surgery (08/30/16) Provider Visit Care Team Role Provider Type Jyothi Monzon PA-C Primary Care Provider Advanced Network/Telecom Engineer Specialty: Medical Address: [address] [place] [address], [address] Email: [email or web address] Susan Faulkner MD Attending Provider Physician Specialty: Orthopedic Surgery Address: [address] [place] [address], [address] Email: [email or web address] Physical Therapy Re-Evaluation PT-OP-A Visit Information Start: 10/26/18 19:01 Freq: Status: Active Protocol: Document 11/07/18 09:02 MARGARETTE (Rec: 11/08/18 08:36 MARGARETTE [id number]) Out-Patient Physical Therapy Visit Information Visit Information Visit Type Re-Evaluation Visit Start Time 09:00 Visit Stop Time 10:00 Total Visit Minutes 60 Visit Number 2 Number of DEPUTY CLERK Visits 0 Evaluation Information Evaluation Date 10/26/18 Precautions Precautions right TKA 10/31/18 PT-OP-B Current Condition Start: 10/26/18 19:01 Freq: Status: Active Protocol: Document 11/07/18 09:02 [facility] (Rec: 11/07/18 09:46 [facility] [id number]) Current Condition History of Current Condition Onset Date right TKA 10/31/18 Current Complaints right knee pain, functional limitations History of Current Condition Right TKA 10/31/18 Future Testing and Treatments Planned Sees Dr. Faulkner 11/10/18 Treatment Goals Patient/Caregiver Goals be able to return to walking without pain after surgery Prior Functional Status Baseline Function- ADL's Independent Baseline Function- Mobility Independent Baseline Function- Gait Independent without device Baseline Function- Work/School Retired Baseline Function- Recreation/Hobbies Independent, active Baseline Function- Other she has two story house but does not have to do the stairs , can stay on main level Current Functional Impairments (Reported) Functional Limitations- ADL's painful, use of cane and walker Functional Limitations- Mobility/Gait Limited to short distances, uses cane or walker Functional Limitations- Recreation/ Unable at this time Hobbies Functional Limitations- Other difficult to sleep due to pain Personal Factors Other Personal Factors That May Effect history of left BRIAN Therapy/Recovery PT-OP-C Subjective Start: 10/26/18 19:01 Freq: Status: Active Protocol: Document 11/07/18 09:02 [facility] (Rec: 11/07/18 09:46 [facility] [id number]) OP-PT Subjective Patient Comments Patient Comments I'm not sure I would do this again (surgery), this is really painful. Scared of doing something wrong to hurt myself. Patient Questionnaires Lower Extremity Functional Scale LEFS Score 28/80 LEFS Impairment 60 to 79% Impaired (Score 17- 31) OP-PT Pain Assessment Pain Assessment Grid Paper Pain Assessment Grid Completed Yes Location Right Knee Pain Location Details 3-7/10 Scale Used Numeric (1 - 10) Frequency Constant Pain Alleviating Factors Cold Medication Rest PT-OP-G Mobility & Gait Start: 10/26/18 19:01 Freq: Status: Active Protocol: Document 10/26/18 16:00 DLM (Rec: 10/30/18 08:26 DLM [id number]) OP Mobility Evaluation Bed Mobility Rolling Independent Supine to and from Sit Independent Transfers Sit to Stand independent with UE's, educated pt on how to kick foot out like she will use after surgery to manage right knee pain after TKA Bed to Chair Transfers Independent Car Transfers educated pt to sit then turn when getting into car OP Gait Assessment Gait Gait Assistance Required: Independent Assistive Devices Assistive Device None Gait Deviations General Gait Pattern Antalgic Factors Limiting Gait Function Factors Limiting Gait Function Pain Stair Climbing Evaluation Evaluation Level of Assist On Stairs Independent Devices Stair Climbing Assistive Devices Left Railing Technique/Endurance Stair Climbing Direction Ascend and Descend Stair Climbing Technique Step Over Step Comments Stair Climbing Comments educated pt in using step-to pattern for right knee management after surgery PT-OP-J Posture/Palpation/Skin Start: 10/26/18 19:01 Freq: Status: Active Protocol: Document 11/07/18 09:02 [facility] (Rec: 11/08/18 08:36 [facility] [id number]) Palpation Assessment Location right knee Palpation Details mild increase in warmth Skin Assessment Edema Assessment right knee Edema Type Non-Pitting Edema Degree 2+ Edema Appearance Puffy Incisional Assessment Incision Appearance/Comments under post-op dressing. No signs or symptoms of infection surrounding area. PT-OP-K Range of Motion Start: 10/26/18 19:01 Freq: Status: Active Protocol: Document 11/07/18 09:02 [facility] (Rec: 11/08/18 08:40 [facility] [id number]) Knee Goniometric Range of Motion Knee Measured in Degrees Right Knee ROM WFL No Patient Position Supine Flexion Active (degrees) 82 Flexion Passive (degrees) 88 Extension Active (degrees) 22 Extension Passive (degrees) 12 Left Patient Position Sitting Flexion Active (degrees) 115 Extension Active (degrees) 0 PT-OP-M Strength Start: 10/26/18 19:01 Freq: Status: Active Protocol: Document 11/07/18 09:02 [facility] (Rec: 11/07/18 09:46 [facility] [id number]) Hip Strength Hip Manual Muscle Testing Right Reason Not Measured Pain Knee Strength Knee Manual Muscle Testing Right Flexion (S2) 3- Fair- Extension (L3) 3- Fair- Comments s/p right TKA; no MMT, patient does not have full anti- gravity strength Ankle/Foot Strength Ankle and Foot Manual Muscle Testing Right Dorsiflexion (L4) 5 Normal Plantarflexion (S1) 5 Normal Left Dorsiflexion (L4) 5 Normal Plantarflexion (S1) 5 Normal PT-OP-Q Treatments Start: 10/26/18 19:01 Freq: Status: Active Protocol: Document 11/07/18 09:02 [facility] (Rec: 11/07/18 09:46 [facility] [id number]) Cardio Equipment Recumbent Elliptical (Biodex) Duration (Minutes) 5 Seat Position 1 Therapeutic Exercises Supine Exercises SAQ Reps/Minutes 10x SLR Reps/Minutes 5x knee flex Equipment Used therapy ball Reps/Minutes 10x quad sets Reps/Minutes 10x ankle pumps Reps/Minutes 10x Sitting Exercises LAQ Reps/Minutes 10x Standing Exercises HC stretch Equipment Used AR Reps/Minutes 2x Gait Training Gait Activity gait with SPC Description level Treatment Focus symmetry, decreased limp, inc knee flex Comments verbal cues, mirror for visual feedback Manual Therapy Treatment Soft Tissue Mobilization right quads, hams Mobilization Type Rolling Intensity/Depth Superficial Body Position Hooklying Self-Care/Home Management Treatment Education Patient Education Home Exercise Program Other Education edema control pain control PT-OP-R Modalities Start: 10/26/18 19:01 Freq: Status: Active Protocol: Document 11/07/18 09:02 [facility] (Rec: 11/08/18 08:36 [facility] [id number]) Electric Stimulation Electric Stimulation Interferential Current (IFC) Body Location right knee Duration (Minutes) 10 Intensity 7 Target/Sweep Sweep High/Low High Patient Position Hooklying Combined With Heat/Cold Cold Pack PT-OP-T Assessment and Plan Start: 10/26/18 19:01 Freq: Status: Active Protocol: Document 11/07/18 09:02 [facility] (Rec: 11/07/18 09:46 [facility] [id number]) Physical Therapy Assessment Evaluation Complexity Number of Personal Factors/Comorbidities 1-2 Number of Body Systems Impaired 4 or More Clinical Presentation at Evaluation Evolving Impairments Impairments Activity Tolerance Edema Gait Pain ROM Strength Goals Four Impairment edema Short Term Goal (STG) Educate patient in edema management and redluction STG Duration 11/14/18 Teacher Education Director Goal (LTG) Decrease edema right knee to minimal levels LTG Duration 02/07/19 Three Impairment strength Short Term Goal (STG) Improve right knee strength to 3+/5 STG Duration 12/08/18 Teacher Education Director Goal (LTG) Improve right knee strength to at least 4+/5 to allow for safe and independent mobility in the home and community and return to taking walks Two Impairment gait Short Term Goal (STG) Patient able to ambulate with appropriate assistive device without limp or compensation on level surfaces STG Duration 12/08/18 Teacher Education Director Goal (LTG) Patient able to walk on level surfaces and stairs without assitive device without limp or compensation LTG Duration 02/07/19 One Impairment ROM Short Term Goal (STG) Improve right knee AROM to 5- 100 STG Duration 12/08/18 Teacher Education Director Goal (LTG) Improve right knee AROM to 0- 120 LTG Duration 02/07/19 Assessment Summary Assessment Patient presents to PT s/p right TKA one week ago. She has already progressed herself to use of straight cane though with significant limp; improved with gait training. Patient encouraged to use FWW as needed for increased support if pain increases using cane only. Demonstrated good understanding of HEP after review and good understanding of edema management after instruction. Will benefit from skilled physical therapy to improve her right knee ROM, strength, and functional mobility and return to an active lifestyle. Physical Therapy Plan Frequency and Duration Frequency of Treatment 2x/wk Duration of Treatment 12 wks Plan of Care Start Date 11/07/18 Plan of Care End Date 02/07/19 Therapeutic Interventions Therapeutic Interventions Aquatic Therapy Gait Training Home Exercise Program Joint Mobilizations Manual Therapy Neuromuscular Re-education Patient/Caregiver Education Self-Care/Home Management Soft Tissue Mobilization Taping Therapeutic Activities Therapeutic Exercises Modalities Cold Pack/Ice Massage Electric Stimulation Next Visit Focus/Plan Next Note Type Treatment Note Next Visit Plan Progress with TKA ex. as tolerated
--- NOTE | 2018-11-08 08:38 | PT.OIE ---
Current Diagnoses Unilateral primary osteoarthritis, right knee (11/07/18) Pain in right knee (11/07/18) Difficulty in walking, not elsewhere classified (11/07/18) Presence of right artificial knee joint (11/07/18) Past Medical History (Last Updated 10/20/18 @ 08:07 by Jo Ann Zelaya RN) Essential hypertension (Chronic) Hyperlipidemia (Chronic 09/09/10) 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) H/O: hysterectomy (Acute) HTN (hypertension) (Acute) Irregular heartbeat (Acute) Osteoarthritis (Acute) Pneumonia (Acute) Retinal detachment, right (Acute ~11/2016) Sleep apnea (Acute) Breast cancer (Chronic ~2015) Shoulder pain (Chronic ~2015) Basal cell carcinoma of skin (Resolved 2012) Past Surgical History (Last Updated 10/19/18 @ 10:19 by Jo Ann Zelaya RN) History of colonoscopy (Acute) Hx of lymph node excision (Acute) Anesthesia (Resolved) History of total hip arthroplasty (Resolved 12/2014) Hx of tonsillectomy (Resolved Unknown) History of cataract removal with insertion of prosthetic lens History of lumpectomy (~07/2015) Status post surgery (08/30/16) Provider Visit Care Team Role Provider Type Jyothi Monzon PA-C Primary Care Provider Advanced Curbstone Setter Specialty: Medical Address: [address] [place] [address], [address] Email: [email or web address] Susan Faulkner MD Attending Provider Physician Specialty: Orthopedic Surgery Address: [address] [place] [address], [address] Email: [email or web address] Physical Therapy Initial Evaluation PT-OP-A Visit Information Start: 10/26/18 19:01 Freq: Status: Active Protocol: Document 11/07/18 09:02 MARGARETTE (Rec: 11/08/18 08:36 MARGARETTE [id number]) Out-Patient Physical Therapy Visit Information Visit Information Visit Type Re-Evaluation Visit Start Time 09:00 Visit Stop Time 10:00 Total Visit Minutes 60 Visit Number 2 Number of SCIENTIFIC RESEARCH ASSOCIATE Visits 0 Evaluation Information Evaluation Date 10/26/18 Precautions Precautions right TKA 10/31/18 PT-OP-B Current Condition Start: 10/26/18 19:01 Freq: Status: Active Protocol: Document 11/07/18 09:02 [facility] (Rec: 11/07/18 09:46 [facility] [id number]) Current Condition History of Current Condition Onset Date right TKA 10/31/18 Current Complaints right knee pain, functional limitations History of Current Condition Right TKA 10/31/18 Future Testing and Treatments Planned Sees Dr. Faulkner 11/10/18 Treatment Goals Patient/Caregiver Goals be able to return to walking without pain after surgery Prior Functional Status Baseline Function- ADL's Independent Baseline Function- Mobility Independent Baseline Function- Gait Independent without device Baseline Function- Work/School Retired Baseline Function- Recreation/Hobbies Independent, active Baseline Function- Other she has two story house but does not have to do the stairs , can stay on main level Current Functional Impairments (Reported) Functional Limitations- ADL's painful, use of cane and walker Functional Limitations- Mobility/Gait Limited to short distances, uses cane or walker Functional Limitations- Recreation/ Unable at this time Hobbies Functional Limitations- Other difficult to sleep due to pain Personal Factors Other Personal Factors That May Effect history of left BRIAN Therapy/Recovery PT-OP-C Subjective Start: 10/26/18 19:01 Freq: Status: Active Protocol: Document 11/07/18 09:02 [facility] (Rec: 11/07/18 09:46 [facility] [id number]) OP-PT Subjective Patient Comments Patient Comments I'm not sure I would do this again (surgery), this is really painful. Scared of doing something wrong to hurt myself. Patient Questionnaires Lower Extremity Functional Scale LEFS Score 28/80 LEFS Impairment 60 to 79% Impaired (Score 17- 31) OP-PT Pain Assessment Pain Assessment Grid Paper Pain Assessment Grid Completed Yes Location Right Knee Pain Location Details 3-7/10 Scale Used Numeric (1 - 10) Frequency Constant Pain Alleviating Factors Cold Medication Rest PT-OP-G Mobility & Gait Start: 10/26/18 19:01 Freq: Status: Active Protocol: Document 10/26/18 16:00 DLM (Rec: 10/30/18 08:26 DLM [id number]) OP Mobility Evaluation Bed Mobility Rolling Independent Supine to and from Sit Independent Transfers Sit to Stand independent with UE's, educated pt on how to kick foot out like she will use after surgery to manage right knee pain after TKA Bed to Chair Transfers Independent Car Transfers educated pt to sit then turn when getting into car OP Gait Assessment Gait Gait Assistance Required: Independent Assistive Devices Assistive Device None Gait Deviations General Gait Pattern Antalgic Factors Limiting Gait Function Factors Limiting Gait Function Pain Stair Climbing Evaluation Evaluation Level of Assist On Stairs Independent Devices Stair Climbing Assistive Devices Left Railing Technique/Endurance Stair Climbing Direction Ascend and Descend Stair Climbing Technique Step Over Step Comments Stair Climbing Comments educated pt in using step-to pattern for right knee management after surgery PT-OP-J Posture/Palpation/Skin Start: 10/26/18 19:01 Freq: Status: Active Protocol: Document 11/07/18 09:02 [facility] (Rec: 11/08/18 08:36 [facility] [id number]) Palpation Assessment Location right knee Palpation Details mild increase in warmth Skin Assessment Edema Assessment right knee Edema Type Non-Pitting Edema Degree 2+ Edema Appearance Puffy Incisional Assessment Incision Appearance/Comments under post-op dressing. No signs or symptoms of infection surrounding area. PT-OP-K Range of Motion Start: 10/26/18 19:01 Freq: Status: Active Protocol: Document 10/26/18 16:00 DLM (Rec: 10/30/18 08:26 DLM [id number]) Knee Goniometric Range of Motion Knee Right Patient Position Supine Flexion Active (degrees) 111 Extension Active (degrees) 0 Left Patient Position Supine Flexion Active (degrees) 103 Extension Active (degrees) 0 PT-OP-M Strength Start: 10/26/18 19:01 Freq: Status: Active Protocol: Document 11/07/18 09:02 [facility] (Rec: 11/07/18 09:46 [facility] [id number]) Hip Strength Hip Manual Muscle Testing Right Reason Not Measured Pain Knee Strength Knee Manual Muscle Testing Right Flexion (S2) 3- Fair- Extension (L3) 3- Fair- Comments s/p right TKA; no MMT, patient does not have full anti- gravity strength Ankle/Foot Strength Ankle and Foot Manual Muscle Testing Right Dorsiflexion (L4) 5 Normal Plantarflexion (S1) 5 Normal Left Dorsiflexion (L4) 5 Normal Plantarflexion (S1) 5 Normal PT-OP-Q Treatments Start: 10/26/18 19:01 Freq: Status: Active Protocol: Document 11/07/18 09:02 [facility] (Rec: 11/07/18 09:46 [facility] [id number]) Cardio Equipment Recumbent Elliptical (Biodex) Duration (Minutes) 5 Seat Position 1 Therapeutic Exercises Supine Exercises SAQ Reps/Minutes 10x SLR Reps/Minutes 5x knee flex Equipment Used therapy ball Reps/Minutes 10x quad sets Reps/Minutes 10x ankle pumps Reps/Minutes 10x Sitting Exercises LAQ Reps/Minutes 10x Standing Exercises HC stretch Equipment Used AR Reps/Minutes 2x Gait Training Gait Activity gait with SPC Description level Treatment Focus symmetry, decreased limp, inc knee flex Comments verbal cues, mirror for visual feedback Manual Therapy Treatment Soft Tissue Mobilization right quads, hams Mobilization Type Rolling Intensity/Depth Superficial Body Position Hooklying Self-Care/Home Management Treatment Education Patient Education Home Exercise Program Other Education edema control pain control PT-OP-R Modalities Start: 10/26/18 19:01 Freq: Status: Active Protocol: Document 11/07/18 09:02 [facility] (Rec: 11/08/18 08:36 [facility] [id number]) Electric Stimulation Electric Stimulation Interferential Current (IFC) Body Location right knee Duration (Minutes) 10 Intensity 7 Target/Sweep Sweep High/Low High Patient Position Hooklying Combined With Heat/Cold Cold Pack PT-OP-T Assessment and Plan Start: 10/26/18 19:01 Freq: Status: Active Protocol: Document 11/07/18 09:02 [facility] (Rec: 11/07/18 09:46 [facility] [id number]) Physical Therapy Assessment Evaluation Complexity Number of Personal Factors/Comorbidities 1-2 Number of Body Systems Impaired 4 or More Clinical Presentation at Evaluation Evolving Impairments Impairments Activity Tolerance Edema Gait Pain ROM Strength Goals Four Impairment edema Short Term Goal (STG) Educate patient in edema management and redluction STG Duration 11/14/18 Betting Clerk Goal (LTG) Decrease edema right knee to minimal levels LTG Duration 02/07/19 Three Impairment strength Short Term Goal (STG) Improve right knee strength to 3+/5 STG Duration 12/08/18 Betting Clerk Goal (LTG) Improve right knee strength to at least 4+/5 to allow for safe and independent mobility in the home and community and return to taking walks Two Impairment gait Short Term Goal (STG) Patient able to ambulate with appropriate assistive device without limp or compensation on level surfaces STG Duration 12/08/18 Jail Goal (LTG) Patient able to walk on level surfaces and stairs without assitive device without limp or compensation LTG Duration 02/07/19 One Impairment ROM Short Term Goal (STG) Improve right knee AROM to 5- 100 STG Duration 12/08/18 Jail Goal (LTG) Improve right knee AROM to 0- 120 LTG Duration 02/07/19 Assessment Summary Assessment Patient presents to PT s/p right TKA one week ago. She has already progressed herself to use of straight cane though with significant limp; improved with gait training. Patient encouraged to use FWW as needed for increased support if pain increases using cane only. Demonstrated good understanding of HEP after review and good understanding of edema management after instruction. Will benefit from skilled physical therapy to improve her right knee ROM, strength, and functional mobility and return to an active lifestyle. Physical Therapy Plan Frequency and Duration Frequency of Treatment 2x/wk Duration of Treatment 12 wks Plan of Care Start Date 11/07/18 Plan of Care End Date 02/07/19 Therapeutic Interventions Therapeutic Interventions Aquatic Therapy Gait Training Home Exercise Program Joint Mobilizations Manual Therapy Neuromuscular Re-education Patient/Caregiver Education Self-Care/Home Management Soft Tissue Mobilization Taping Therapeutic Activities Therapeutic Exercises Modalities Cold Pack/Ice Massage Electric Stimulation Next Visit Focus/Plan Next Note Type Treatment Note Next Visit Plan Progress with TKA ex. as tolerated
--- NOTE | 2018-11-08 08:38 | PT.OPPOC ---
Current Diagnoses Unilateral primary osteoarthritis, right knee (11/07/18) Pain in right knee (11/07/18) Difficulty in walking, not elsewhere classified (11/07/18) Presence of right artificial knee joint (11/07/18) Provider Visit Care Team Role Provider Type Jyothi Monzon PA-C Primary Care Provider Advanced Anesthesiology [facility] Specialty: Medical Address: [address] [place] [address], [id number] Email: [email or web address] Susan Faulkner MD Attending Provider Physician Specialty: Orthopedic Surgery Address: [address] [place] [address], [id number] Email: [email or web address] Plan Of Care PT-OP-T Assessment and Plan Start: 10/26/18 19:01 Freq: Status: Active Protocol: Document 11/07/18 09:02 MARGARETTE (Rec: 11/07/18 09:46 [facility] [id number]) Physical Therapy Assessment Evaluation Complexity Number of Personal Factors/Comorbidities 1-2 Number of Body Systems Impaired 4 or More Clinical Presentation at Evaluation Evolving Impairments Impairments Activity Tolerance Edema Gait Pain ROM Strength Goals Four Impairment edema Short Term Goal (STG) Educate patient in edema management and redluction STG Duration 11/14/18 Transition Of Care Specialist Goal (LTG) Decrease edema right knee to minimal levels LTG Duration 02/07/19 Three Impairment strength Short Term Goal (STG) Improve right knee strength to 3+/5 STG Duration 12/08/18 Transition Of Care Specialist Goal (LTG) Improve right knee strength to at least 4+/5 to allow for safe and independent mobility in the home and community and return to taking walks Two Impairment gait Short Term Goal (STG) Patient able to ambulate with appropriate assistive device without limp or compensation on level surfaces STG Duration 12/08/18 [facility] Goal (LTG) Patient able to walk on level surfaces and stairs without assitive device without limp or compensation LTG Duration 02/07/19 One Impairment ROM Short Term Goal (STG) Improve right knee AROM to 5- 100 STG Duration 12/08/18 [facility] Goal (LTG) Improve right knee AROM to 0- 120 LTG Duration 02/07/19 Assessment Summary Assessment Patient presents to PT s/p right TKA one week ago. She has already progressed herself to use of straight cane though with significant limp; improved with gait training. Patient encouraged to use FWW as needed for increased support if pain increases using cane only. Demonstrated good understanding of HEP after review and good understanding of edema management after instruction. Will benefit from skilled physical therapy to improve her right knee ROM, strength, and functional mobility and return to an active lifestyle. Physical Therapy Plan Frequency and Duration Frequency of Treatment 2x/wk Duration of Treatment 12 wks Plan of Care Start Date 11/07/18 Plan of Care End Date 02/07/19 Therapeutic Interventions Therapeutic Interventions Aquatic Therapy Gait Training Home Exercise Program Joint Mobilizations Manual Therapy Neuromuscular Re-education Patient/Caregiver Education Self-Care/Home Management Soft Tissue Mobilization Taping Therapeutic Activities Therapeutic Exercises Modalities Cold Pack/Ice Massage Electric Stimulation Next Visit Focus/Plan Next Note Type Treatment Note Next Visit Plan Progress with TKA ex. as tolerated Plan of Care Dates Plan of Care Start Date 11/07/18 Plan of Care End Date 02/07/19 Please Sign and Return: I have reviewed this Plan of Care and certify that the skilled therapy services above are required to meet the patient?s needs. Physician Signature Date Printed Name and Credentials Clinical Instructor Signature Printed Name and Credentials
--- NOTE | 2018-11-10 14:18 | PT.OTN ---
Current Diagnoses Unilateral primary osteoarthritis, right knee (11/10/18) Pain in right knee (11/10/18) Difficulty in walking, not elsewhere classified (11/10/18) Presence of right artificial knee joint (11/10/18) Physical Therapy Treatment Note PT-OP-A Visit Information Start: 10/26/18 19:01 Freq: Status: Active Protocol: Document 11/10/18 08:45 SAK (Rec: 11/10/18 09:29 SAK [id number]) Out-Patient Physical Therapy Visit Information Visit Information Visit Type Treatment Note Visit Start Time 08:45 Visit Stop Time 09:45 Total Visit Minutes 60 Visit Number 3 Number of CAFE OPERATOR Visits 0 Evaluation Information Evaluation Date 10/26/18 Precautions Precautions right TKA 10/31/18 PT-OP-B Current Condition Start: 10/26/18 19:01 Freq: Status: Active Protocol: Document 11/07/18 09:02 SAK (Rec: 11/07/18 09:46 SAK [id number]) Current Condition History of Current Condition Onset Date right TKA 10/31/18 Current Complaints right knee pain, functional limitations History of Current Condition Right TKA 10/31/18 Future Testing and Treatments Planned Sees Dr. Faulkner 11/10/18 Treatment Goals Patient/Caregiver Goals be able to return to walking without pain after surgery Prior Functional Status Baseline Function- ADL's Independent Baseline Function- Mobility Independent Baseline Function- Gait Independent without device Baseline Function- Work/School Retired Baseline Function- Recreation/Hobbies Independent, active Baseline Function- Other she has two story house but does not have to do the stairs , can stay on main level Current Functional Impairments (Reported) Functional Limitations- ADL's painful, use of cane and walker Functional Limitations- Mobility/Gait Limited to short distances, uses cane or walker Functional Limitations- Recreation/ Unable at this time Hobbies Functional Limitations- Other difficult to sleep due to pain Personal Factors Other Personal Factors That May Effect history of left BRIAN Therapy/Recovery PT-OP-C Subjective Start: 10/26/18 19:01 Freq: Status: Active Protocol: Document 11/10/18 08:45 SAK (Rec: 11/10/18 09:29 SAK [id number]) OP-PT Subjective Patient Comments Patient Comments [place] much better after PT, not as scared about knee. Compliant to HEP PT-OP-G Mobility & Gait Start: 10/26/18 19:01 Freq: Status: Active Protocol: Document 10/26/18 16:00 DLM (Rec: 10/30/18 08:26 DLM [id number]) OP Mobility Evaluation Bed Mobility Rolling Independent Supine to and from Sit Independent Transfers Sit to Stand independent with UE's, educated pt on how to kick foot out like she will use after surgery to manage right knee pain after TKA Bed to Chair Transfers Independent Car Transfers educated pt to sit then turn when getting into car OP Gait Assessment Gait Gait Assistance Required: Independent Assistive Devices Assistive Device None Gait Deviations General Gait Pattern Antalgic Factors Limiting Gait Function Factors Limiting Gait Function Pain Stair Climbing Evaluation Evaluation Level of Assist On Stairs Independent Devices Stair Climbing Assistive Devices Left Railing Technique/Endurance Stair Climbing Direction Ascend and Descend Stair Climbing Technique Step Over Step Comments Stair Climbing Comments educated pt in using step-to pattern for right knee management after surgery PT-OP-J Posture/Palpation/Skin Start: 10/26/18 19:01 Freq: Status: Active Protocol: Document 11/07/18 09:02 [facility] (Rec: 11/08/18 08:36 [facility] [id number]) Palpation Assessment Location right knee Palpation Details mild increase in warmth Skin Assessment Edema Assessment right knee Edema Type Non-Pitting Edema Degree 2+ Edema Appearance Puffy Incisional Assessment Incision Appearance/Comments under post-op dressing. No signs or symptoms of infection surrounding area. PT-OP-K Range of Motion Start: 10/26/18 19:01 Freq: Status: Active Protocol: Document 11/07/18 09:02 [facility] (Rec: 11/08/18 08:40 [facility] [id number]) Knee Goniometric Range of Motion Knee Right Knee ROM WFL No Patient Position Supine Flexion Active (degrees) 82 Flexion Passive (degrees) 88 Extension Active (degrees) 22 Extension Passive (degrees) 12 Left Patient Position Sitting Flexion Active (degrees) 115 Extension Active (degrees) 0 PT-OP-M Strength Start: 10/26/18 19:01 Freq: Status: Active Protocol: Document 11/07/18 09:02 SAK (Rec: 11/07/18 09:46 SAK [id number]) Hip Strength Hip Manual Muscle Testing Right Reason Not Measured Pain Knee Strength Knee Manual Muscle Testing Right Flexion (S2) 3- Fair- Extension (L3) 3- Fair- Comments s/p right TKA; no MMT, patient does not have full anti- gravity strength Ankle/Foot Strength Ankle and Foot Manual Muscle Testing Right Dorsiflexion (L4) 5 Normal Plantarflexion (S1) 5 Normal Left Dorsiflexion (L4) 5 Normal Plantarflexion (S1) 5 Normal PT-OP-Q Treatments Start: 10/26/18 19:01 Freq: Status: Active Protocol: Document 11/10/18 08:45 [facility] (Rec: 11/10/18 09:29 [facility] [id number]) Cardio Equipment Recumbent Elliptical (Biodex) Duration (Minutes) 8 Seat Position 1 Gym Equipment Shuttle Recovery Bilateral Squats Resistance 50 Shuttle Recovery Platform Stable Therapeutic Exercises Supine Exercises gravity assisted knee flex Reps/Minutes 5x Comments slider sheet knee flex Equipment Used therapy ball Reps/Minutes 10x Sitting Exercises LAQ Reps/Minutes 10x Standing Exercises hamstring curl Reps/Minutes 10x hamstring stretch Reps/Minutes 5x stair lunge Reps/Minutes 10x step-touch Equipment Used 6 stair Reps/Minutes 10x HC stretch Equipment Used AR Reps/Minutes 2x Gait Training Gait Activity stairs Description 6 4 stairs x 2 Comments luís UE support gait with SPC Description level Treatment Focus symmetry, decreased limp, inc knee flex Comments verbal cues, mirror for visual feedback Manual Therapy Treatment Soft Tissue Mobilization right quads, hams Mobilization Type Rolling Intensity/Depth Superficial Body Position Hooklying Self-Care/Home Management Treatment Education Patient Education Home Exercise Program Other Education increase frequency of change of positions PT-OP-R Modalities Start: 10/26/18 19:01 Freq: Status: Active Protocol: Document 11/10/18 08:45 [facility] (Rec: 11/10/18 14:17 [facility] [id number]) Electric Stimulation Electric Stimulation Interferential Current (IFC) Body Location right knee Duration (Minutes) 10 Intensity 7 Target/Sweep Sweep High/Low High Patient Position Hooklying Combined With Heat/Cold Cold Pack PT-OP-T Assessment and Plan Start: 10/26/18 19:01 Freq: Status: Active Protocol: Document 11/10/18 08:45 [facility] (Rec: 11/10/18 14:17 [facility] [id number]) Physical Therapy Assessment Goals Four Impairment edema Short Term Goal (STG) Educate patient in edema management and redluction STG Duration 11/14/18 Road Mender Goal (LTG) Decrease edema right knee to minimal levels LTG Duration 02/07/19 Three Impairment strength Short Term Goal (STG) Improve right knee strength to 3+/5 STG Duration 12/08/[address] Mender Goal (LTG) Improve right knee strength to at least 4+/5 to allow for safe and independent mobility in the home and community and return to taking walks Two Impairment gait Short Term Goal (STG) Patient able to ambulate with appropriate assistive device without limp or compensation on level surfaces STG Duration 12/08/[address] Mender Goal (LTG) Patient able to walk on level surfaces and stairs without assitive device without limp or compensation LTG Duration 02/07/19 One Impairment ROM Short Term Goal (STG) Improve right knee AROM to 5- 100 STG Duration 12/08/[address]ender Goal (LTG) Improve right knee AROM to 0- 120 LTG Duration 02/07/19 Assessment Summary Assessment Right knee flex active 87, passive 95. Extension active -8, passive -4. Gait improved with use of cane left and verbal and visual cues. Physical Therapy Plan Frequency and Duration Frequency of Treatment 2x/wk Duration of Treatment 12 wks Plan of Care Start Date 11/07/18 Plan of Care End Date 02/07/19 Therapeutic Interventions Therapeutic Interventions Aquatic Therapy Gait Training Home Exercise Program Joint Mobilizations Manual Therapy Neuromuscular Re-education Patient/Caregiver Education Self-Care/Home Management Soft Tissue Mobilization Taping Therapeutic Activities Therapeutic Exercises Modalities Cold Pack/Ice Massage Electric Stimulation Next Visit Focus/Plan Next Note Type Treatment Note Next Visit Plan Progress with TKA ex. as tolerated
--- NOTE | 2018-11-14 16:20 | PT.OTN ---
Current Diagnoses Unilateral primary osteoarthritis, right knee (11/14/18) Pain in right knee (11/14/18) Difficulty in walking, not elsewhere classified (11/14/18) Presence of right artificial knee joint (11/14/18) Physical Therapy Treatment Note PT-OP-A Visit Information Start: 10/26/18 19:01 Freq: Status: Active Protocol: Document 11/14/18 09:05 SAK (Rec: 11/14/18 09:46 SAK [id number]) Out-Patient Physical Therapy Visit Information Visit Information Visit Type Treatment Note Visit Start Time 09:00 Visit Stop Time 10:00 Total Visit Minutes 60 Visit Number 4 Number of KINDERGARTEN TEACHER ASSISTANT Visits 0 Evaluation Information Evaluation Date 10/26/18 Precautions Precautions right TKA 10/31/18 PT-OP-B Current Condition Start: 10/26/18 19:01 Freq: Status: Active Protocol: Document 11/07/18 09:02 SAK (Rec: 11/07/18 09:46 SAK [id number]) Current Condition History of Current Condition Onset Date right TKA 10/31/18 Current Complaints right knee pain, functional limitations History of Current Condition Right TKA 10/31/18 Future Testing and Treatments Planned Sees Dr. Faulkner 11/10/18 Treatment Goals Patient/Caregiver Goals be able to return to walking without pain after surgery Prior Functional Status Baseline Function- ADL's Independent Baseline Function- Mobility Independent Baseline Function- Gait Independent without device Baseline Function- Work/School Retired Baseline Function- Recreation/Hobbies Independent, active Baseline Function- Other she has two story house but does not have to do the stairs , can stay on main level Current Functional Impairments (Reported) Functional Limitations- ADL's painful, use of cane and walker Functional Limitations- Mobility/Gait Limited to short distances, uses cane or walker Functional Limitations- Recreation/ Unable at this time Hobbies Functional Limitations- Other difficult to sleep due to pain Personal Factors Other Personal Factors That May Effect history of left BRIAN Therapy/Recovery PT-OP-C Subjective Start: 10/26/18 19:01 Freq: Status: Active Protocol: Document 11/14/18 09:05 SAK (Rec: 11/14/18 09:46 SAK [id number]) OP-PT Subjective Patient Comments Patient Comments Had sciatic pain over the weekend but tried to be more aware of not compensating with her leg, as well as heat to sciatic nerve. PT-OP-G Mobility & Gait Start: 10/26/18 19:01 Freq: Status: Active Protocol: Document 10/26/18 16:00 DLM (Rec: 10/30/18 08:26 DLM [id number]) OP Mobility Evaluation Bed Mobility Rolling Independent Supine to and from Sit Independent Transfers Sit to Stand independent with UE's, educated pt on how to kick foot out like she will use after surgery to manage right knee pain after TKA Bed to Chair Transfers Independent Car Transfers educated pt to sit then turn when getting into car OP Gait Assessment Gait Gait Assistance Required: Independent Assistive Devices Assistive Device None Gait Deviations General Gait Pattern Antalgic Factors Limiting Gait Function Factors Limiting Gait Function Pain Stair Climbing Evaluation Evaluation Level of Assist On Stairs Independent Devices Stair Climbing Assistive Devices Left Railing Technique/Endurance Stair Climbing Direction Ascend and Descend Stair Climbing Technique Step Over Step Comments Stair Climbing Comments educated pt in using step-to pattern for right knee management after surgery PT-OP-J Posture/Palpation/Skin Start: 10/26/18 19:01 Freq: Status: Active Protocol: Document 11/07/18 09:02 [facility] (Rec: 11/08/18 08:36 [facility] [id number]) Palpation Assessment Location right knee Palpation Details mild increase in warmth Skin Assessment Edema Assessment right knee Edema Type Non-Pitting Edema Degree 2+ Edema Appearance Puffy Incisional Assessment Incision Appearance/Comments under post-op dressing. No signs or symptoms of infection surrounding area. PT-OP-K Range of Motion Start: 10/26/18 19:01 Freq: Status: Active Protocol: Document 11/07/18 09:02 [facility] (Rec: 11/08/18 08:40 [facility] [id number]) Knee Goniometric Range of Motion Knee Right Knee ROM WFL No Patient Position Supine Flexion Active (degrees) 82 Flexion Passive (degrees) 88 Extension Active (degrees) 22 Extension Passive (degrees) 12 Left Patient Position Sitting Flexion Active (degrees) 115 Extension Active (degrees) 0 PT-OP-M Strength Start: 10/26/18 19:01 Freq: Status: Active Protocol: Document 11/07/18 09:02 [facility] (Rec: 11/07/18 09:46 SAK [id number]) Hip Strength Hip Manual Muscle Testing Right Reason Not Measured Pain Knee Strength Knee Manual Muscle Testing Right Flexion (S2) 3- Fair- Extension (L3) 3- Fair- Comments s/p right TKA; no MMT, patient does not have full anti- gravity strength Ankle/Foot Strength Ankle and Foot Manual Muscle Testing Right Dorsiflexion (L4) 5 Normal Plantarflexion (S1) 5 Normal Left Dorsiflexion (L4) 5 Normal Plantarflexion (S1) 5 Normal PT-OP-Q Treatments Start: 10/26/18 19:01 Freq: Status: Active Protocol: Document 11/14/18 09:05 [facility] (Rec: 11/14/18 09:46 [facility] [id number]) Cardio Equipment Recumbent Elliptical (Biodex) Duration (Minutes) 6 Seat Position 1 Bicycle (Upright) Duration (Minutes) 6 Resistance 1 Seat Position 6 Gym Equipment Shuttle Recovery Unilateral Squats Resistance 25 right, 37 left Shuttle Recovery Platform Stable Reps/Time 2x10 Bilateral Squats Resistance 50 Shuttle Recovery Platform Stable Reps/Time 1x10 Therapeutic Exercises Supine Exercises gravity assisted knee flex Reps/Minutes 5x Comments slider sheet Sitting Exercises LAQ Reps/Minutes 10x Standing Exercises HC stretch Equipment Used AR Reps/Minutes 2x Therapeutic Activity Therapeutic Activity sit to stand Reps/Minutes 10x Comments Emphasis on symmetrical LE use Gait Training Gait Activity stairs Description 6 4 stairs x 2 Comments luís UE support Manual Therapy Treatment Soft Tissue Mobilization right quads, hams Mobilization Type Rolling Intensity/Depth Moderate Body Position Hooklying Manual Techniques contract/relax to increase knee flex Body Location right knee Body Position Sitting Reps/Duration 6x PT-OP-R Modalities Start: 10/26/18 19:01 Freq: Status: Active Protocol: Document 11/10/18 08:45 [facility] (Rec: 11/10/18 14:17 [facility] [id number]) Electric Stimulation Electric Stimulation Interferential Current (IFC) Body Location right knee Duration (Minutes) 10 Intensity 7 Target/Sweep Sweep High/Low High Patient Position Hooklying Combined With Heat/Cold Cold Pack PT-OP-T Assessment and Plan Start: 10/26/18 19:01 Freq: Status: Active Protocol: Document 11/14/18 09:05 [facility] (Rec: 11/14/18 09:46 [facility] [id number]) Physical Therapy Assessment Goals Four Impairment edema Short Term Goal (STG) Educate patient in edema management and redluction STG Duration 11/14/18 [facility] Goal (LTG) Decrease edema right knee to minimal levels LTG Duration 02/07/19 Three Impairment strength Short Term Goal (STG) Improve right knee strength to 3+/5 STG Duration 12/08/18 [facility] Goal (LTG) Improve right knee strength to at least 4+/5 to allow for safe and independent mobility in the home and community and return to taking walks Two Impairment gait Short Term Goal (STG) Patient able to ambulate with appropriate assistive device without limp or compensation on level surfaces STG Duration 12/08/18 Steak Sauce Maker Goal (LTG) Patient able to walk on level surfaces and stairs without assitive device without limp or compensation LTG Duration 02/07/19 One Impairment ROM Short Term Goal (STG) Improve right knee AROM to 5- 100 STG Duration 12/08/18 [facility] Goal (LTG) Improve right knee AROM to 0- 120 LTG Duration 02/07/19 Assessment Summary Assessment Right knee passive flex improved to 103 after contract /relax technique. Able to achieve full revolution on ex bike at seat height 6 today. Physical Therapy Plan Frequency and Duration Frequency of Treatment 2x/wk Duration of Treatment 12 wks Plan of Care Start Date 11/07/18 Plan of Care End Date 02/07/19 Therapeutic Interventions Therapeutic Interventions Aquatic Therapy Gait Training Home Exercise Program Joint Mobilizations Manual Therapy Neuromuscular Re-education Patient/Caregiver Education Self-Care/Home Management Soft Tissue Mobilization Taping Therapeutic Activities Therapeutic Exercises Modalities Cold Pack/Ice Massage Electric Stimulation Next Visit Focus/Plan Next Note Type Treatment Note
--- NOTE | 2018-11-17 11:36 | PT.OTN ---
Current Diagnoses Unilateral primary osteoarthritis, right knee (11/17/18) Pain in right knee (11/17/18) Difficulty in walking, not elsewhere classified (11/17/18) Presence of right artificial knee joint (11/17/18) Physical Therapy Treatment Note PT-OP-A Visit Information Start: 10/26/18 19:01 Freq: Status: Active Protocol: Document 11/17/18 11:30 SA (Rec: 11/17/18 11:36 SA [id number]) Out-Patient Physical Therapy Visit Information Visit Information Visit Type Treatment Note Visit Start Time 09:00 Visit Stop Time 09:48 Total Visit Minutes 48 Visit Number 3 Number of MANAGER EXCHANGE Visits 1 PT-OP-B Current Condition Start: 10/26/18 19:01 Freq: Status: Active Protocol: Document 11/07/18 09:02 SAK (Rec: 11/07/18 09:46 SAK [id number]) Current Condition History of Current Condition Onset Date right TKA 10/31/18 Current Complaints right knee pain, functional limitations History of Current Condition Right TKA 10/31/18 Future Testing and Treatments Planned Sees Dr. Faulkner 11/10/18 Treatment Goals Patient/Caregiver Goals be able to return to walking without pain after surgery Prior Functional Status Baseline Function- ADL's Independent Baseline Function- Mobility Independent Baseline Function- Gait Independent without device Baseline Function- Work/School Retired Baseline Function- Recreation/Hobbies Independent, active Baseline Function- Other she has two story house but does not have to do the stairs , can stay on main level Current Functional Impairments (Reported) Functional Limitations- ADL's painful, use of cane and walker Functional Limitations- Mobility/Gait Limited to short distances, uses cane or walker Functional Limitations- Recreation/ Unable at this time Hobbies Functional Limitations- Other difficult to sleep due to pain Personal Factors Other Personal Factors That May Effect history of left BRIAN Therapy/Recovery PT-OP-C Subjective Start: 10/26/18 19:01 Freq: Status: Active Protocol: Document 11/17/18 11:30 SA (Rec: 11/17/18 11:36 SA [id number]) OP-PT Subjective Patient Comments Patient Comments Pt reports feelinig stiff this AM, presents to clinic with no SPC. PT-OP-G Mobility & Gait Start: 10/26/18 19:01 Freq: Status: Active Protocol: Document 10/26/18 16:00 DLM (Rec: 10/30/18 08:26 DLM [email or web address]) OP Mobility Evaluation Bed Mobility Rolling Independent Supine to and from Sit Independent Transfers Sit to Stand independent with UE's, educated pt on how to kick foot out like she will use after surgery to manage right knee pain after TKA Bed to Chair Transfers Independent Car Transfers educated pt to sit then turn when getting into car OP Gait Assessment Gait Gait Assistance Required: Independent Assistive Devices Assistive Device None Gait Deviations General Gait Pattern Antalgic Factors Limiting Gait Function Factors Limiting Gait Function Pain Stair Climbing Evaluation Evaluation Level of Assist On Stairs Independent Devices Stair Climbing Assistive Devices Left Railing Technique/Endurance Stair Climbing Direction Ascend and Descend Stair Climbing Technique Step Over Step Comments Stair Climbing Comments educated pt in using step-to pattern for right knee management after surgery PT-OP-J Posture/Palpation/Skin Start: 10/26/18 19:01 Freq: Status: Active Protocol: Document 11/07/18 09:02 [facility] (Rec: 11/08/18 08:36 [facility] [id number]) Palpation Assessment Location right knee Palpation Details mild increase in warmth Skin Assessment Edema Assessment right knee Edema Type Non-Pitting Edema Degree 2+ Edema Appearance Puffy Incisional Assessment Incision Appearance/Comments under post-op dressing. No signs or symptoms of infection surrounding area. PT-OP-K Range of Motion Start: 10/26/18 19:01 Freq: Status: Active Protocol: Document 11/07/18 09:02 [facility] (Rec: 11/08/18 08:40 [facility] [id number]) Knee Goniometric Range of Motion Knee Right Knee ROM WFL No Patient Position Supine Flexion Active (degrees) 82 Flexion Passive (degrees) 88 Extension Active (degrees) 22 Extension Passive (degrees) 12 Left Patient Position Sitting Flexion Active (degrees) 115 Extension Active (degrees) 0 PT-OP-M Strength Start: 10/26/18 19:01 Freq: Status: Active Protocol: Document 11/07/18 09:02 [facility] (Rec: 11/07/18 09:46 [facility] [id number]) Hip Strength Hip Manual Muscle Testing Right Reason Not Measured Pain Knee Strength Knee Manual Muscle Testing Right Flexion (S2) 3- Fair- Extension (L3) 3- Fair- Comments s/p right TKA; no MMT, patient does not have full anti- gravity strength Ankle/Foot Strength Ankle and Foot Manual Muscle Testing Right Dorsiflexion (L4) 5 Normal Plantarflexion (S1) 5 Normal Left Dorsiflexion (L4) 5 Normal Plantarflexion (S1) 5 Normal PT-OP-Q Treatments Start: 10/26/18 19:01 Freq: Status: Active Protocol: Document 11/17/18 11:30 SA (Rec: 11/17/18 11:36 SA [email or web address]) Cardio Equipment Recumbent Bicycle Duration (Minutes) 6 Resistance 2 Other warm up Gym Equipment Shuttle Recovery Unilateral Squats Resistance 25 right, 37 left Shuttle Recovery Platform Stable Reps/Time 2x10 Bilateral Squats Resistance 50 Shuttle Recovery Platform Stable Reps/Time 2 x 10 Therapeutic Exercises Supine Exercises gravity assisted knee flex Reps/Minutes 20 Comments slider sheet SAQ Reps/Minutes 5 x 10 quad sets Reps/Minutes 5 x 10 Sitting Exercises LAQ Reps/Minutes 5 x 10 Standing Exercises hamstring curl Reps/Minutes 10x hamstring stretch Reps/Minutes 20 x 3 stair lunge Reps/Minutes 10x Manual Therapy Treatment Soft Tissue Mobilization right quads, hams Mobilization Type Rolling Intensity/Depth Moderate Body Position Hooklying Manual Techniques contract/relax to increase knee flex Body Location right knee Reps/Duration 6x PT-OP-R Modalities Start: 10/26/18 19:01 Freq: Status: Active Protocol: Document 11/17/18 11:30 SA (Rec: 11/17/18 11:36 SA [email or web address]) Hot Pack/Cold Pack Treatment Coldpack Location R knee Patient Position Hooklying Treatment Duration (minutes) 10 Patient Tolerance Good PT-OP-T Assessment and Plan Start: 10/26/18 19:01 Freq: Status: Active Protocol: Document 11/17/18 11:30 SA (Rec: 11/17/18 11:36 SA [id number]) Physical Therapy Assessment Assessment Summary Assessment R knee PROM -5-105 degrees after exercise/srtetching. Pt tolerating ther ex well and walking program in place at home. Physical Therapy Plan Next Visit Focus/Plan Next Note Type Treatment Note Next Visit Plan Progress with TKA ex. as tolerated
--- NOTE | 2018-11-21 09:00 | PT.OTN ---
Current Diagnoses Unilateral primary osteoarthritis, right knee (11/21/18) Pain in right knee (11/21/18) Difficulty in walking, not elsewhere classified (11/21/18) Presence of right artificial knee joint (11/21/18) Physical Therapy Treatment Note PT-OP-A Visit Information Start: 10/26/18 19:01 Freq: Status: Active Protocol: Document 11/21/18 09:04 SAK (Rec: 11/21/18 09:36 [facility] [id number]) Out-Patient Physical Therapy Visit Information Visit Information Visit Type Treatment Note Visit Start Time 09:00 Visit Stop Time 10:00 Total Visit Minutes 60 Visit Number 3 Number of FINISHING AND SHIPPING SUPERVISOR Visits 0 Evaluation Information Evaluation Date 10/26/18 Precautions Precautions right TKA 10/31/18 PT-OP-B Current Condition Start: 10/26/18 19:01 Freq: Status: Active Protocol: Document 11/07/18 09:02 SAK (Rec: 11/07/18 09:46 SAK [id number]) Current Condition History of Current Condition Onset Date right TKA 10/31/18 Current Complaints right knee pain, functional limitations History of Current Condition Right TKA 10/31/18 Future Testing and Treatments Planned Sees Dr. Faulkner 11/10/18 Treatment Goals Patient/Caregiver Goals be able to return to walking without pain after surgery Prior Functional Status Baseline Function- ADL's Independent Baseline Function- Mobility Independent Baseline Function- Gait Independent without device Baseline Function- Work/School Retired Baseline Function- Recreation/Hobbies Independent, active Baseline Function- Other she has two story house but does not have to do the stairs , can stay on main level Current Functional Impairments (Reported) Functional Limitations- ADL's painful, use of cane and walker Functional Limitations- Mobility/Gait Limited to short distances, uses cane or walker Functional Limitations- Recreation/ Unable at this time Hobbies Functional Limitations- Other difficult to sleep due to pain Personal Factors Other Personal Factors That May Effect history of left BRIAN Therapy/Recovery PT-OP-C Subjective Start: 10/26/18 19:01 Freq: Status: Active Protocol: Document 11/21/18 09:04 SAK (Rec: 11/21/18 09:36 SAK [id number]) OP-PT Subjective Patient Comments Patient Comments Compliant with HEP, feels stiff PT-OP-G Mobility & Gait Start: 10/26/18 19:01 Freq: Status: Active Protocol: Document 10/26/18 16:00 DLM (Rec: 10/30/18 08:26 DLM [id number]) OP Mobility Evaluation Bed Mobility Rolling Independent Supine to and from Sit Independent Transfers Sit to Stand independent with UE's, educated pt on how to kick foot out like she will use after surgery to manage right knee pain after TKA Bed to Chair Transfers Independent Car Transfers educated pt to sit then turn when getting into car OP Gait Assessment Gait Gait Assistance Required: Independent Assistive Devices Assistive Device None Gait Deviations General Gait Pattern Antalgic Factors Limiting Gait Function Factors Limiting Gait Function Pain Stair Climbing Evaluation Evaluation Level of Assist On Stairs Independent Devices Stair Climbing Assistive Devices Left Railing Technique/Endurance Stair Climbing Direction Ascend and Descend Stair Climbing Technique Step Over Step Comments Stair Climbing Comments educated pt in using step-to pattern for right knee management after surgery PT-OP-J Posture/Palpation/Skin Start: 10/26/18 19:01 Freq: Status: Active Protocol: Document 11/07/18 09:02 [facility] (Rec: 11/08/18 08:36 [facility] [id number]) Palpation Assessment Location right knee Palpation Details mild increase in warmth Skin Assessment Edema Assessment right knee Edema Type Non-Pitting Edema Degree 2+ Edema Appearance Puffy Incisional Assessment Incision Appearance/Comments under post-op dressing. No signs or symptoms of infection surrounding area. PT-OP-K Range of Motion Start: 10/26/18 19:01 Freq: Status: Active Protocol: Document 11/07/18 09:02 [facility] (Rec: 11/08/18 08:40 [facility] [id number]) Knee Goniometric Range of Motion Knee Right Knee ROM WFL No Patient Position Supine Flexion Active (degrees) 82 Flexion Passive (degrees) 88 Extension Active (degrees) 22 Extension Passive (degrees) 12 Left Patient Position Sitting Flexion Active (degrees) 115 Extension Active (degrees) 0 PT-OP-M Strength Start: 10/26/18 19:01 Freq: Status: Active Protocol: Document 11/07/18 09:02 [facility] (Rec: 11/07/18 09:46 [facility] [id number]) Hip Strength Hip Manual Muscle Testing Right Reason Not Measured Pain Knee Strength Knee Manual Muscle Testing Right Flexion (S2) 3- Fair- Extension (L3) 3- Fair- Comments s/p right TKA; no MMT, patient does not have full anti- gravity strength Ankle/Foot Strength Ankle and Foot Manual Muscle Testing Right Dorsiflexion (L4) 5 Normal Plantarflexion (S1) 5 Normal Left Dorsiflexion (L4) 5 Normal Plantarflexion (S1) 5 Normal PT-OP-Q Treatments Start: 10/26/18 19:01 Freq: Status: Active Protocol: Document 11/21/18 09:04 [facility] (Rec: 11/21/18 09:36 [facility] [id number]) Cardio Equipment Recumbent Bicycle Duration (Minutes) 6 Resistance 2 Other for knee ROM and flexibilty Gym Equipment Shuttle Recovery Unilateral Squats Resistance 37 luís Shuttle Recovery Platform Stable Reps/Time 2x10 Bilateral Squats Resistance 50 Shuttle Recovery Platform Stable Reps/Time 2 x 10 Therapeutic Exercises Supine Exercises gravity assisted knee flex Reps/Minutes 20 Comments slider sheet SAQ Reps/Minutes 5 x 10 quad sets Reps/Minutes 5 x 10 Comments towel roll under ankle Sitting Exercises HS curl Resistance L1 TB Reps/Minutes 10x LAQ Reps/Minutes 5 x 10 Standing Exercises hamstring curl Reps/Minutes 10x hamstring stretch Reps/Minutes 20 x 3 stair lunge Reps/Minutes 10x HC stretch Equipment Used AR Reps/Minutes 2x Therapeutic Activity Therapeutic Activity sit to stand Reps/Minutes 10x Comments Emphasis on symmetrical LE use Gait Training Gait Activity stairs Description 10 4 stairs x 1 Comments luís UE support Manual Therapy Treatment Soft Tissue Mobilization right quads, hams Mobilization Type Rolling Intensity/Depth Moderate Body Position Hooklying Manual Techniques contract/relax to increase knee flex Body Location right knee Reps/Duration 6x PT-OP-R Modalities Start: 10/26/18 19:01 Freq: Status: Active Protocol: Document 11/21/18 09:04 [facility] (Rec: 11/21/18 09:36 [facility] [id number]) Hot Pack/Cold Pack Treatment Coldpack Location R knee Patient Position Hooklying Treatment Duration (minutes) 10 Patient Tolerance Good PT-OP-T Assessment and Plan Start: 10/26/18 19:01 Freq: Status: Active Protocol: Document 11/21/18 09:04 [facility] (Rec: 11/21/18 09:36 [facility] [id number]) Physical Therapy Assessment Goals Four Impairment edema Short Term Goal (STG) Educate patient in edema management and redluction STG Duration 11/14/18 Simulation Educator Goal (LTG) Decrease edema right knee to minimal levels LTG Duration 02/07/19 Three Impairment strength Short Term Goal (STG) Improve right knee strength to 3+/5 STG Duration 12/08/18 Long-Term Goal (LTG) Improve right knee strength to at least 4+/5 to allow for safe and independent mobility in the home and community and return to taking walks Two Impairment gait Short Term Goal (STG) Patient able to ambulate with appropriate assistive device without limp or compensation on level surfaces STG Duration 12/08/18 Long-Term Goal (LTG) Patient able to walk on level surfaces and stairs without assitive device without limp or compensation LTG Duration 02/07/19 One Impairment ROM Short Term Goal (STG) Improve right knee AROM to 5- 100 STG Duration 12/08/18 Simulation Educator Goal (LTG) Improve right knee AROM to 0- 120 LTG Duration 02/07/19 Assessment Summary Assessment Right knee AROM -6 to 110. Continues to steadily improve with knee ROM, gait mechanics. Physical Therapy Plan Frequency and Duration Frequency of Treatment 2x/wk Duration of Treatment 12 wks Plan of Care Start Date 11/07/18 Plan of Care End Date 02/07/19 Therapeutic Interventions Therapeutic Interventions Aquatic Therapy Gait Training Home Exercise Program Joint Mobilizations Manual Therapy Neuromuscular Re-education Patient/Caregiver Education Self-Care/Home Management Soft Tissue Mobilization Taping Therapeutic Activities Therapeutic Exercises Modalities Cold Pack/Ice Massage Electric Stimulation Next Visit Focus/Plan Next Note Type Treatment Note Next Visit Plan Progress with TKA ex. as tolerated. Increase resistance with squat on shuttle leg press
--- NOTE | 2018-11-23 14:09 | PT.OTN ---
Current Diagnoses Unilateral primary osteoarthritis, right knee (11/23/18) Pain in right knee (11/23/18) Difficulty in walking, not elsewhere classified (11/23/18) Presence of right artificial knee joint (11/23/18) Physical Therapy Treatment Note PT-OP-A Visit Information Start: 10/26/18 19:01 Freq: Status: Active Protocol: Document 11/23/18 09:08 [facility] (Rec: 11/23/18 09:50 [facility] [id number]) Out-Patient Physical Therapy Visit Information Visit Information Visit Type Treatment Note Visit Start Time 09:00 Visit Stop Time 10:00 Total Visit Minutes 55 Visit Number 7 Number of FLOOR COVERINGS INSTALLER Visits 0 Evaluation Information Evaluation Date 10/26/18 Precautions Precautions right TKA 10/31/18 PT-OP-B Current Condition Start: 10/26/18 19:01 Freq: Status: Active Protocol: Document 11/07/18 09:02 SAK (Rec: 11/07/18 09:46 SAK [id number]) Current Condition History of Current Condition Onset Date right TKA 10/31/18 Current Complaints right knee pain, functional limitations History of Current Condition Right TKA 10/31/18 Future Testing and Treatments Planned Sees Dr. Faulkner 11/10/18 Treatment Goals Patient/Caregiver Goals be able to return to walking without pain after surgery Prior Functional Status Baseline Function- ADL's Independent Baseline Function- Mobility Independent Baseline Function- Gait Independent without device Baseline Function- Work/School Retired Baseline Function- Recreation/Hobbies Independent, active Baseline Function- Other she has two story house but does not have to do the stairs , can stay on main level Current Functional Impairments (Reported) Functional Limitations- ADL's painful, use of cane and walker Functional Limitations- Mobility/Gait Limited to short distances, uses cane or walker Functional Limitations- Recreation/ Unable at this time Hobbies Functional Limitations- Other difficult to sleep due to pain Personal Factors Other Personal Factors That May Effect history of left BRIAN Therapy/Recovery PT-OP-C Subjective Start: 10/26/18 19:01 Freq: Status: Active Protocol: Document 11/23/18 09:08 SAK (Rec: 11/23/18 09:50 [facility]AK [id number]) OP-PT Subjective Patient Comments Patient Comments Increased soreness last since last night PT-OP-G Mobility & Gait Start: 10/26/18 19:01 Freq: Status: Active Protocol: Document 10/26/18 16:00 DLM (Rec: 10/30/18 08:26 DLM [id number]) OP Mobility Evaluation Bed Mobility Rolling Independent Supine to and from Sit Independent Transfers Sit to Stand independent with UE's, educated pt on how to kick foot out like she will use after surgery to manage right knee pain after TKA Bed to Chair Transfers Independent Car Transfers educated pt to sit then turn when getting into car OP Gait Assessment Gait Gait Assistance Required: Independent Assistive Devices Assistive Device None Gait Deviations General Gait Pattern Antalgic Factors Limiting Gait Function Factors Limiting Gait Function Pain Stair Climbing Evaluation Evaluation Level of Assist On Stairs Independent Devices Stair Climbing Assistive Devices Left Railing Technique/Endurance Stair Climbing Direction Ascend and Descend Stair Climbing Technique Step Over Step Comments Stair Climbing Comments educated pt in using step-to pattern for right knee management after surgery PT-OP-J Posture/Palpation/Skin Start: 10/26/18 19:01 Freq: Status: Active Protocol: Document 11/07/18 09:02 [facility] (Rec: 11/08/18 08:36 [facility] [id number]) Palpation Assessment Location right knee Palpation Details mild increase in warmth Skin Assessment Edema Assessment right knee Edema Type Non-Pitting Edema Degree 2+ Edema Appearance Puffy Incisional Assessment Incision Appearance/Comments under post-op dressing. No signs or symptoms of infection surrounding area. PT-OP-K Range of Motion Start: 10/26/18 19:01 Freq: Status: Active Protocol: Document 11/07/18 09:02 [facility] (Rec: 11/08/18 08:40 [facility] [id number]) Knee Goniometric Range of Motion Knee Right Knee ROM WFL No Patient Position Supine Flexion Active (degrees) 82 Flexion Passive (degrees) 88 Extension Active (degrees) 22 Extension Passive (degrees) 12 Left Patient Position Sitting Flexion Active (degrees) 115 Extension Active (degrees) 0 PT-OP-M Strength Start: 10/26/18 19:01 Freq: Status: Active Protocol: Document 11/07/18 09:02 [facility] (Rec: 11/07/18 09:46 [facility] [id number]) Hip Strength Hip Manual Muscle Testing Right Reason Not Measured Pain Knee Strength Knee Manual Muscle Testing Right Flexion (S2) 3- Fair- Extension (L3) 3- Fair- Comments s/p right TKA; no MMT, patient does not have full anti- gravity strength Ankle/Foot Strength Ankle and Foot Manual Muscle Testing Right Dorsiflexion (L4) 5 Normal Plantarflexion (S1) 5 Normal Left Dorsiflexion (L4) 5 Normal Plantarflexion (S1) 5 Normal PT-OP-Q Treatments Start: 10/26/18 19:01 Freq: Status: Active Protocol: Document 11/23/18 09:08 [facility] (Rec: 11/23/18 09:50 [facility] [id number]) Cardio Equipment Recumbent Bicycle Duration (Minutes) 10 Resistance 2 Other for knee ROM and flexibilty Gym Equipment Shuttle Recovery Unilateral Squats Resistance 37 luís Shuttle Recovery Platform Stable Reps/Time 2x10 Bilateral Squats Resistance 75 Shuttle Recovery Platform Stable Reps/Time 2 x 10 Therapeutic Exercises Supine Exercises gravity assisted knee flex Reps/Minutes 20 Comments slider sheet Sitting Exercises HS curl Resistance L2 TB Reps/Minutes 10x LAQ Reps/Minutes 5 x 10 Standing Exercises knee extension Resistance L1 TB Reps/Minutes 12x knee ext Resistance L1 TB Reps/Minutes 10x hamstring curl Reps/Minutes 10x stair lunge Reps/Minutes 10x HC stretch Equipment Used AR Reps/Minutes 2x Gait Training Gait Activity gait without device Device Used none Level of Assistance verbal and manual cues Surface level Treatment Focus decrease compensation Comments verbal cues, mirror for visual cues stairs Description 15 4 stairs x 1 Comments unil UE support Manual Therapy Treatment Soft Tissue Mobilization right quads, hams Mobilization Type Rolling Intensity/Depth Moderate Body Position Hooklying Joint Mobilizations PF Direction sup/inf Manual Techniques contract/relax to increase knee flex Body Location right knee Reps/Duration 6x PT-OP-R Modalities Start: 10/26/18 19:01 Freq: Status: Active Protocol: Document 11/23/18 09:08 [facility] (Rec: 11/23/18 09:50 [facility] [id number]) Hot Pack/Cold Pack Treatment Coldpack Location R knee Patient Position Hooklying Treatment Duration (minutes) 10 Patient Tolerance Good PT-OP-T Assessment and Plan Start: 10/26/18 19:01 Freq: Status: Active Protocol: Document 11/23/18 09:08 [facility] (Rec: 11/23/18 09:50 [facility] [id number]) Physical Therapy Assessment Goals Four Impairment edema Short Term Goal (STG) Educate patient in edema management and redluction STG Duration 11/14/18 Retirement Goal (LTG) Decrease edema right knee to minimal levels LTG Duration 02/07/19 Three Impairment strength Short Term Goal (STG) Improve right knee strength to 3+/5 STG Duration 12/08/18 Senior Insight Manager Goal (LTG) Improve right knee strength to at least 4+/5 to allow for safe and independent mobility in the home and community and return to taking walks Two Impairment gait Short Term Goal (STG) Patient able to ambulate with appropriate assistive device without limp or compensation on level surfaces STG Duration 12/08/18 Retirement Goal (LTG) Patient able to walk on level surfaces and stairs without assitive device without limp or compensation LTG Duration 02/07/19 One Impairment ROM Short Term Goal (STG) Improve right knee AROM to 5- 100 STG Duration 12/08/18 Senior Insight Manager Goal (LTG) Improve right knee AROM to 0- 120 LTG Duration 02/07/19 Assessment Summary Assessment Increased soreness and edema today with decrease in ROM: only able to achieve 105 flex. Patient was instructed to not use pillow under knee at night, pace activity to prevent increased pain and swelling. Physical Therapy Plan Frequency and Duration Frequency of Treatment 2x/wk Duration of Treatment 12 wks Plan of Care Start Date 11/07/18 Plan of Care End Date 02/07/19 Therapeutic Interventions Therapeutic Interventions Aquatic Therapy Gait Training Home Exercise Program Joint Mobilizations Manual Therapy Neuromuscular Re-education Patient/Caregiver Education Self-Care/Home Management Soft Tissue Mobilization Taping Therapeutic Activities Therapeutic Exercises Modalities Cold Pack/Ice Massage Electric Stimulation Next Visit Focus/Plan Next Note Type Treatment Note Next Visit Plan Prone knee extension stretch, further contractl/relax and patellar mobs.
--- NOTE | 2018-11-29 09:45 | PT.OTN ---
Current Diagnoses Unilateral primary osteoarthritis, right knee (11/29/18) Pain in right knee (11/29/18) Difficulty in walking, not elsewhere classified (11/29/18) Presence of right artificial knee joint (11/29/18) Physical Therapy Treatment Note PT-OP-A Visit Information Start: 10/26/18 19:01 Freq: Status: Active Protocol: Document 11/29/18 09:39 SA (Rec: 11/29/18 09:45 SA [id number]) Out-Patient Physical Therapy Visit Information Visit Information Visit Type Treatment Note Visit Start Time 09:00 Visit Stop Time 09:53 Total Visit Minutes 53 Visit Number 9 Number of [employer] [place] Visits 1 PT-OP-B Current Condition Start: 10/26/18 19:01 Freq: Status: Active Protocol: Document 11/07/18 09:02 SAK (Rec: 11/07/18 09:46 SAK [id number]) Current Condition History of Current Condition Onset Date right TKA 10/31/18 Current Complaints right knee pain, functional limitations History of Current Condition Right TKA 10/31/18 Future Testing and Treatments Planned Sees Dr. Faulkner 11/10/18 Treatment Goals Patient/Caregiver Goals be able to return to walking without pain after surgery Prior Functional Status Baseline Function- ADL's Independent Baseline Function- Mobility Independent Baseline Function- Gait Independent without device Baseline Function- Work/School Retired Baseline Function- Recreation/Hobbies Independent, active Baseline Function- Other she has two story house but does not have to do the stairs , can stay on main level Current Functional Impairments (Reported) Functional Limitations- ADL's painful, use of cane and walker Functional Limitations- Mobility/Gait Limited to short distances, uses cane or walker Functional Limitations- Recreation/ Unable at this time Hobbies Functional Limitations- Other difficult to sleep due to pain Personal Factors Other Personal Factors That May Effect history of left BRIAN Therapy/Recovery PT-OP-C Subjective Start: 10/26/18 19:01 Freq: Status: Active Protocol: Document 11/29/18 09:39 SA (Rec: 11/29/18 09:45 SA [id number]) OP-PT Subjective Patient Comments Patient Comments Pt discouraged with continued pain at night but feels good about being aable to walk up/ down stairs normally. PT-OP-G Mobility & Gait Start: 10/26/18 19:01 Freq: Status: Active Protocol: Document 10/26/18 16:00 DLM (Rec: 10/30/18 08:26 DLM [email or web address]) OP Mobility Evaluation Bed Mobility Rolling Independent Supine to and from Sit Independent Transfers Sit to Stand independent with UE's, educated pt on how to kick foot out like she will use after surgery to manage right knee pain after TKA Bed to Chair Transfers Independent Car Transfers educated pt to sit then turn when getting into car OP Gait Assessment Gait Gait Assistance Required: Independent Assistive Devices Assistive Device None Gait Deviations General Gait Pattern Antalgic Factors Limiting Gait Function Factors Limiting Gait Function Pain Stair Climbing Evaluation Evaluation Level of Assist On Stairs Independent Devices Stair Climbing Assistive Devices Left Railing Technique/Endurance Stair Climbing Direction Ascend and Descend Stair Climbing Technique Step Over Step Comments Stair Climbing Comments educated pt in using step-to pattern for right knee management after surgery PT-OP-J Posture/Palpation/Skin Start: 10/26/18 19:01 Freq: Status: Active Protocol: Document 11/07/18 09:02 [facility] (Rec: 11/08/18 08:36 [facility] [id number]) Palpation Assessment Location right knee Palpation Details mild increase in warmth Skin Assessment Edema Assessment right knee Edema Type Non-Pitting Edema Degree 2+ Edema Appearance Puffy Incisional Assessment Incision Appearance/Comments under post-op dressing. No signs or symptoms of infection surrounding area. PT-OP-K Range of Motion Start: 10/26/18 19:01 Freq: Status: Active Protocol: Document 11/07/18 09:02 [facility] (Rec: 11/08/18 08:40 [facility] [id number]) Knee Goniometric Range of Motion Knee Right Knee ROM WFL No Patient Position Supine Flexion Active (degrees) 82 Flexion Passive (degrees) 88 Extension Active (degrees) 22 Extension Passive (degrees) 12 Left Patient Position Sitting Flexion Active (degrees) 115 Extension Active (degrees) 0 PT-OP-M Strength Start: 10/26/18 19:01 Freq: Status: Active Protocol: Document 11/07/18 09:02 [facility] (Rec: 11/07/18 09:46 [facility] [id number]) Hip Strength Hip Manual Muscle Testing Right Reason Not Measured Pain Knee Strength Knee Manual Muscle Testing Right Flexion (S2) 3- Fair- Extension (L3) 3- Fair- Comments s/p right TKA; no MMT, patient does not have full anti- gravity strength Ankle/Foot Strength Ankle and Foot Manual Muscle Testing Right Dorsiflexion (L4) 5 Normal Plantarflexion (S1) 5 Normal Left Dorsiflexion (L4) 5 Normal Plantarflexion (S1) 5 Normal PT-OP-Q Treatments Start: 10/26/18 19:01 Freq: Status: Active Protocol: Document 11/29/18 09:39 (Rec: 11/29/18 09:45 [email or web address]) Cardio Equipment Recumbent Bicycle Duration (Minutes) 8 Resistance 2 Gym Equipment Shuttle Recovery Unilateral Squats Resistance 37 luís Shuttle Recovery Platform Stable Reps/Time 2x10 Bilateral Squats Resistance 75 Shuttle Recovery Platform Stable Reps/Time 2 x 10 Shuttle Balance chains red Details balance fwd/bck, side to side Reps/Duration 5 min Therapeutic Exercises Supine Exercises gravity assisted knee flex Reps/Minutes 20 Comments slider sheet SAQ Reps/Minutes 5 x 10 Sitting Exercises HS curl Resistance L2 TB Reps/Minutes 10x LAQ Reps/Minutes 5 x 10 Standing Exercises squat Reps/Minutes 10x knee extension Resistance L1 TB Reps/Minutes 12x HC stretch Equipment Used AR Reps/Minutes 2x Manual Therapy Treatment Soft Tissue Mobilization right quads, hams Mobilization Type Rolling Intensity/Depth Moderate Body Position Hooklying Comments scar mobs Joint Mobilizations PF Direction sup/inf PT-OP-R Modalities Start: 10/26/18 19:01 Freq: Status: Active Protocol: Document 11/29/18 09:39 (Rec: 11/29/18 09:45 [email or web address]) Electric Stimulation Electric Stimulation Interferential Current (IFC) Body Location right knee Duration (Minutes) 15 Intensity 7 Target/Sweep Sweep High/Low High Patient Position Hooklying Combined With Heat/Cold Cold Pack PT-OP-T Assessment and Plan Start: 10/26/18 19:01 Freq: Status: Active Protocol: Document 11/29/18 09:39 (Rec: 11/29/18 09:45 [email or web address]) Physical Therapy Assessment Assessment Summary Assessment AROM -5-110 today, some minor edema noted but pt tolerated ther ex well, focused on quad contraction with gait training . Physical Therapy Plan Next Visit Focus/Plan Next Note Type Treatment Note Next Visit Plan Prone knee extension stretch, further contractl/relax and patellar mobs.
--- NOTE | 2018-12-08 15:59 | PT.OTN ---
Current Diagnoses Unilateral primary osteoarthritis, right knee (12/08/18) Pain in right knee (12/08/18) Difficulty in walking, not elsewhere classified (12/08/18) Presence of right artificial knee joint (12/08/18) Physical Therapy Treatment Note PT-OP-A Visit Information Start: 10/26/18 19:01 Freq: Status: Active Protocol: Document 12/08/18 10:19 SAK (Rec: 12/08/18 11:02 SAK [id number]) Out-Patient Physical Therapy Visit Information Visit Information Visit Type Treatment Note Visit Start Time 09:00 Visit Stop Time 09:53 Total Visit Minutes 53 Visit Number 9 Number of [employer] Visits 1 Evaluation Information Evaluation Date 10/26/18 Precautions Precautions right TKA 10/31/18 PT-OP-B Current Condition Start: 10/26/18 19:01 Freq: Status: Active Protocol: Document 11/07/18 09:02 SAK (Rec: 11/07/18 09:46 SAK [id number]) Current Condition History of Current Condition Onset Date right TKA 10/31/18 Current Complaints right knee pain, functional limitations History of Current Condition Right TKA 10/31/18 Future Testing and Treatments Planned Sees Dr. Faulkner 11/10/18 Treatment Goals Patient/Caregiver Goals be able to return to walking without pain after surgery Prior Functional Status Baseline Function- ADL's Independent Baseline Function- Mobility Independent Baseline Function- Gait Independent without device Baseline Function- Work/School Retired Baseline Function- Recreation/Hobbies Independent, active Baseline Function- Other she has two story house but does not have to do the stairs , can stay on main level Current Functional Impairments (Reported) Functional Limitations- ADL's painful, use of cane and walker Functional Limitations- Mobility/Gait Limited to short distances, uses cane or walker Functional Limitations- Recreation/ Unable at this time Hobbies Functional Limitations- Other difficult to sleep due to pain Personal Factors Other Personal Factors That May Effect history of left BRIAN Therapy/Recovery PT-OP-C Subjective Start: 10/26/18 19:01 Freq: Status: Active Protocol: Document 12/08/18 10:19 SAK (Rec: 12/08/18 11:02 SAK [id number]) OP-PT Subjective Patient Comments Patient Comments Last night better than most. Not sure why but reports she feels like her progress has been going backwards lately, more pain, more difficulty on stairs with inability to do with alternating pattern. PT-OP-G Mobility & Gait Start: 10/26/18 19:01 Freq: Status: Active Protocol: Document 10/26/18 16:00 DLM (Rec: 10/30/18 08:26 DLM [email or web address]) OP Mobility Evaluation Bed Mobility Rolling Independent Supine to and from Sit Independent Transfers Sit to Stand independent with UE's, educated pt on how to kick foot out like she will use after surgery to manage right knee pain after TKA Bed to Chair Transfers Independent Car Transfers educated pt to sit then turn when getting into car OP Gait Assessment Gait Gait Assistance Required: Independent Assistive Devices Assistive Device None Gait Deviations General Gait Pattern Antalgic Factors Limiting Gait Function Factors Limiting Gait Function Pain Stair Climbing Evaluation Evaluation Level of Assist On Stairs Independent Devices Stair Climbing Assistive Devices Left Railing Technique/Endurance Stair Climbing Direction Ascend and Descend Stair Climbing Technique Step Over Step Comments Stair Climbing Comments educated pt in using step-to pattern for right knee management after surgery PT-OP-J Posture/Palpation/Skin Start: 10/26/18 19:01 Freq: Status: Active Protocol: Document 11/07/18 09:02 [facility] (Rec: 11/08/18 08:36 [facility] [id number]) Palpation Assessment Location right knee Palpation Details mild increase in warmth Skin Assessment Edema Assessment right knee Edema Type Non-Pitting Edema Degree 2+ Edema Appearance Puffy Incisional Assessment Incision Appearance/Comments under post-op dressing. No signs or symptoms of infection surrounding area. PT-OP-K Range of Motion Start: 10/26/18 19:01 Freq: Status: Active Protocol: Document 11/07/18 09:02 [facility] (Rec: 11/08/18 08:40 [facility] [id number]) Knee Goniometric Range of Motion Knee Right Knee ROM WFL No Patient Position Supine Flexion Active (degrees) 82 Flexion Passive (degrees) 88 Extension Active (degrees) 22 Extension Passive (degrees) 12 Left Patient Position Sitting Flexion Active (degrees) 115 Extension Active (degrees) 0 PT-OP-M Strength Start: 10/26/18 19:01 Freq: Status: Active Protocol: Document 11/07/18 09:02 SAK (Rec: 11/07/18 09:46 SAK [id number]) Hip Strength Hip Manual Muscle Testing Right Reason Not Measured Pain Knee Strength Knee Manual Muscle Testing Right Flexion (S2) 3- Fair- Extension (L3) 3- Fair- Comments s/p right TKA; no MMT, patient does not have full anti- gravity strength Ankle/Foot Strength Ankle and Foot Manual Muscle Testing Right Dorsiflexion (L4) 5 Normal Plantarflexion (S1) 5 Normal Left Dorsiflexion (L4) 5 Normal Plantarflexion (S1) 5 Normal PT-OP-Q Treatments Start: 10/26/18 19:01 Freq: Status: Active Protocol: Document 12/08/18 10:19 [facility] (Rec: 12/08/18 11:02 [facility] [id number]) Cardio Equipment Bicycle (Upright) Duration (Minutes) 10 Resistance 1 Seat Position 5 Gym Equipment Shuttle Recovery Unilateral Squats Resistance 37 luís Shuttle Recovery Platform Stable Reps/Time 2x10 Bilateral Squats Resistance 75 Shuttle Recovery Platform Stable Reps/Time 2 x 10 Therapeutic Exercises Supine Exercises gravity assisted knee flex Reps/Minutes 12x Comments manual assist SAQ Reps/Minutes 5 x 10 Gait Training Gait Activity stairs Description 4 4 stairs x 1 Comments luís UE support, c/o inc pain Manual Therapy Treatment Soft Tissue Mobilization right LE Mobilization Type Manual Lymphatic Drainage Rolling Body Position Supine with right LE elevated Comments for edema reduction Joint Mobilizations PF Direction sup/inf Taping right knee Treatment Focus edema reduction Type of Tape Kinesio Tape Skin Inspection intact, incision well-healed Comments 2 Y strips crossing knee joint Manual Techniques contract/relax to increase knee flex Body Location right knee Reps/Duration 6x Self-Care/Home Management Treatment Education Other Education obtain thigh high compression stocking, increase use of ice and elevate LE above heart ( hasn't been doing.) PT-OP-R Modalities Start: 10/26/18 19:01 Freq: Status: Active Protocol: Document 12/08/18 10:19 [facility] (Rec: 12/08/18 15:58 [facility] [id number]) Electric Stimulation Electric Stimulation Interferential Current (IFC) Body Location right knee Duration (Minutes) 15 Intensity 7 Target/Sweep Sweep High/Low High Patient Position Hooklying Combined With Heat/Cold Cold Pack Comments cryocuff PT-OP-T Assessment and Plan Start: 10/26/18 19:01 Freq: Status: Active Protocol: Document 12/08/18 10:19 [facility] (Rec: 12/08/18 15:58 [facility] [id number]) Physical Therapy Assessment Goals Four Impairment edema Short Term Goal (STG) Educate patient in edema management and redluction STG Duration 11/14/18 Retirement Goal (LTG) Decrease edema right knee to minimal levels LTG Duration 02/07/19 Three Impairment strength Short Term Goal (STG) Improve right knee strength to 3+/5 STG Duration 12/08/18 Retirement Goal (LTG) Improve right knee strength to at least 4+/5 to allow for safe and independent mobility in the home and community and return to taking walks Two Impairment gait Short Term Goal (STG) Patient able to ambulate with appropriate assistive device without limp or compensation on level surfaces STG Duration 12/08/18 [place] Goal (LTG) Patient able to walk on level surfaces and stairs without assitive device without limp or compensation LTG Duration 02/07/19 One Impairment ROM Short Term Goal (STG) Improve right knee AROM to 5- 100 STG Duration 12/08/18 [place] Goal (LTG) Improve right knee AROM to 0- 120 LTG Duration 02/07/19 Assessment Summary Assessment Increased edema noted today, with decreased PF mobility. No signs or symptoms of infection, but feel patient would benefit from use of thigh-high compression stockings as well as increased icing with higher elevation of right LE during icing. She is agreeable. Measurements taken of right knee for reference when ordering compression stocking. Physical Therapy Plan Frequency and Duration Frequency of Treatment 2x/wk Duration of Treatment 12 wks Plan of Care Start Date 11/07/18 Plan of Care End Date 02/07/19 Therapeutic Interventions Therapeutic Interventions Aquatic Therapy Gait Training Home Exercise Program Joint Mobilizations Manual Therapy Neuromuscular Re-education Patient/Caregiver Education Self-Care/Home Management Soft Tissue Mobilization Taping Therapeutic Activities Therapeutic Exercises Modalities Cold Pack/Ice Massage Electric Stimulation Next Visit Focus/Plan Next Note Type Treatment Note Next Visit Plan Evaluate response to kinesiotape, fit of compression stockings, edema level.
--- NOTE | 2018-12-12 16:49 | PT.OTN ---
Current Diagnoses Unilateral primary osteoarthritis, right knee (12/12/18) Pain in right knee (12/12/18) Difficulty in walking, not elsewhere classified (12/12/18) Presence of right artificial knee joint (12/12/18) Physical Therapy Treatment Note PT-OP-A Visit Information Start: 10/26/18 19:01 Freq: Status: Active Protocol: Document 12/12/18 10:36 SAK (Rec: 12/12/18 11:17 SAK [id number]) Out-Patient Physical Therapy Visit Information Visit Information Visit Type Treatment Note Visit Start Time 09:00 Visit Stop Time 09:53 Total Visit Minutes 55 Visit Number 9 Number of ASSISTANT FOOD SERVICE DIRECTOR Visits 1 Evaluation Information Evaluation Date 10/26/18 Precautions Precautions right TKA 10/31/18 PT-OP-B Current Condition Start: 10/26/18 19:01 Freq: Status: Active Protocol: Document 11/07/18 09:02 SAK (Rec: 11/07/18 09:46 SAK [id number]) Current Condition History of Current Condition Onset Date right TKA 10/31/18 Current Complaints right knee pain, functional limitations History of Current Condition Right TKA 10/31/18 Future Testing and Treatments Planned Sees Dr. Faulkner 11/10/18 Treatment Goals Patient/Caregiver Goals be able to return to walking without pain after surgery Prior Functional Status Baseline Function- ADL's Independent Baseline Function- Mobility Independent Baseline Function- Gait Independent without device Baseline Function- Work/School Retired Baseline Function- Recreation/Hobbies Independent, active Baseline Function- Other she has two story house but does not have to do the stairs , can stay on main level Current Functional Impairments (Reported) Functional Limitations- ADL's painful, use of cane and walker Functional Limitations- Mobility/Gait Limited to short distances, uses cane or walker Functional Limitations- Recreation/ Unable at this time Hobbies Functional Limitations- Other difficult to sleep due to pain Personal Factors Other Personal Factors That May Effect history of left BRIAN Therapy/Recovery PT-OP-C Subjective Start: 10/26/18 19:01 Freq: Status: Active Protocol: Document 12/12/18 10:36 SAK (Rec: 12/12/18 16:45 SAK [id number]) OP-PT Subjective Patient Comments Patient Comments Reports she had hard weekend after walking at [employer] but better on Tuesday after increased emphasis as instructed with icing and elevating her LE and noted stairs were easier with edema reduced. Obtained compression stocking but not wearing yet due to being washed. PT-OP-G Mobility & Gait Start: 10/26/18 19:01 Freq: Status: Active Protocol: Document 10/26/18 16:00 DLM (Rec: 10/30/18 08:26 DLM [id number]) OP Mobility Evaluation Bed Mobility Rolling Independent Supine to and from Sit Independent Transfers Sit to Stand independent with UE's, educated pt on how to kick foot out like she will use after surgery to manage right knee pain after TKA Bed to Chair Transfers Independent Car Transfers educated pt to sit then turn when getting into car OP Gait Assessment Gait Gait Assistance Required: Independent Assistive Devices Assistive Device None Gait Deviations General Gait Pattern Antalgic Factors Limiting Gait Function Factors Limiting Gait Function Pain Stair Climbing Evaluation Evaluation Level of Assist On Stairs Independent Devices Stair Climbing Assistive Devices Left Railing Technique/Endurance Stair Climbing Direction Ascend and Descend Stair Climbing Technique Step Over Step Comments Stair Climbing Comments educated pt in using step-to pattern for right knee management after surgery PT-OP-J Posture/Palpation/Skin Start: 10/26/18 19:01 Freq: Status: Active Protocol: Document 11/07/18 09:02 [facility] (Rec: 11/08/18 08:36 [facility] [id number]) Palpation Assessment Location right knee Palpation Details mild increase in warmth Skin Assessment Edema Assessment right knee Edema Type Non-Pitting Edema Degree 2+ Edema Appearance Puffy Incisional Assessment Incision Appearance/Comments under post-op dressing. No signs or symptoms of infection surrounding area. PT-OP-K Range of Motion Start: 10/26/18 19:01 Freq: Status: Active Protocol: Document 11/07/18 09:02 SAK (Rec: 11/08/18 08:40 [facility] [id number]) Knee Goniometric Range of Motion Knee Right Knee ROM WFL No Patient Position Supine Flexion Active (degrees) 82 Flexion Passive (degrees) 88 Extension Active (degrees) 22 Extension Passive (degrees) 12 Left Patient Position Sitting Flexion Active (degrees) 115 Extension Active (degrees) 0 PT-OP-M Strength Start: 10/26/18 19:01 Freq: Status: Active Protocol: Document 11/07/18 09:02 SAK (Rec: 11/07/18 09:46 SAK [id number]) Hip Strength Hip Manual Muscle Testing Right Reason Not Measured Pain Knee Strength Knee Manual Muscle Testing Right Flexion (S2) 3- Fair- Extension (L3) 3- Fair- Comments s/p right TKA; no MMT, patient does not have full anti- gravity strength Ankle/Foot Strength Ankle and Foot Manual Muscle Testing Right Dorsiflexion (L4) 5 Normal Plantarflexion (S1) 5 Normal Left Dorsiflexion (L4) 5 Normal Plantarflexion (S1) 5 Normal PT-OP-Q Treatments Start: 10/26/18 19:01 Freq: Status: Active Protocol: Document 12/12/18 10:36 [facility] (Rec: 12/12/18 11:17 [facility] [id number]) Cardio Equipment Bicycle (Upright) Duration (Minutes) 10 Resistance 1 Seat Position 5 Gym Equipment Shuttle Recovery Unilateral Squats Resistance 25 luís Shuttle Recovery Platform Stable Reps/Time 2x10 Shuttle Balance chains red Details balance fwd/bck, side to side Reps/Duration 5 min Therapeutic Exercises Supine Exercises gravity assisted knee flex Reps/Minutes 12x Comments manual assist SAQ Reps/Minutes 5 x 10 Sitting Exercises LAQ Reps/Minutes 5 x 10 Standing Exercises squat Reps/Minutes 10x knee extension Resistance L2 TB Reps/Minutes 12x hamstring curl Reps/Minutes 10x stair lunge Reps/Minutes 10x2 step-touch Equipment Used 6 stair Reps/Minutes 10x HC stretch Equipment Used AR Reps/Minutes 2x Gait Training Gait Activity gait without device Device Used none Level of Assistance verbal and manual cues Surface level Distance/Duration 1 min stairs Description 4 4 stairs x 2 Comments luís UE support, c/o inc pain Manual Therapy Treatment Soft Tissue Mobilization right quads, hams Mobilization Type Rolling Intensity/Depth Moderate Body Position Hooklying Comments scar mobs Joint Mobilizations tibiofemoral Direction posterior glide Reps/Duration 5 min Self-Care/Home Management Treatment Education Other Education wear compression stocking during the day, remove at night PT-OP-R Modalities Start: 10/26/18 19:01 Freq: Status: Active Protocol: Document 12/12/18 10:36 [facility] (Rec: 12/12/18 11:17 [facility] [id number]) Electric Stimulation Electric Stimulation Interferential Current (IFC) Body Location right knee Duration (Minutes) 15 Intensity 7 Target/Sweep Sweep High/Low High Patient Position Hooklying Combined With Heat/Cold Cold Pack Comments cryocuff PT-OP-T Assessment and Plan Start: 10/26/18 19:01 Freq: Status: Active Protocol: Document 12/12/18 10:36 MARGARETTE (Rec: 12/12/18 11:17 [facility] [id number]) Physical Therapy Assessment Goals Four Impairment edema Short Term Goal (STG) Educate patient in edema management and redluction STG Duration 11/14/18 [facility] Goal (LTG) Decrease edema right knee to minimal levels LTG Duration 02/07/19 Three Impairment strength Short Term Goal (STG) Improve right knee strength to 3+/5 STG Duration 12/08/18 Construction Producer Goal (LTG) Improve right knee strength to at least 4+/5 to allow for safe and independent mobility in the home and community and return to taking walks Two Impairment gait Short Term Goal (STG) Patient able to ambulate with appropriate assistive device without limp or compensation on level surfaces STG Duration 12/08/18 [facility] Goal (LTG) Patient able to walk on level surfaces and stairs without assitive device without limp or compensation LTG Duration 02/07/19 One Impairment ROM Short Term Goal (STG) Improve right knee AROM to 5- 100 STG Duration 12/08/18 Construction Producer Goal (LTG) Improve right knee AROM to 0- 120 LTG Duration 02/07/19 Assessment Summary Assessment Patient obtained compression stocking but did not wear to PT; washing it first. Responded well 2 days ago to increased icing and elevation of her right LE with decreased edema but increased again today after increased time walking yesterday. Feel she will benefit from use of compression stocking. Physical Therapy Plan Frequency and Duration Frequency of Treatment 2x/wk Duration of Treatment 12 wks Plan of Care Start Date 11/07/18 Plan of Care End Date 02/07/19 Therapeutic Interventions Therapeutic Interventions Aquatic Therapy Gait Training Home Exercise Program Joint Mobilizations Manual Therapy Neuromuscular Re-education Patient/Caregiver Education Self-Care/Home Management Soft Tissue Mobilization Taping Therapeutic Activities Therapeutic Exercises Modalities Cold Pack/Ice Massage Electric Stimulation
--- NOTE | 2018-12-15 15:07 | PT.OTN ---
Current Diagnoses Unilateral primary osteoarthritis, right knee (12/15/18) Pain in right knee (12/15/18) Difficulty in walking, not elsewhere classified (12/15/18) Presence of right artificial knee joint (12/15/18) Physical Therapy Treatment Note PT-OP-A Visit Information Start: 10/26/18 19:01 Freq: Status: Active Protocol: Document 12/15/18 08:40 SAK (Rec: 12/15/18 11:01 SAK [id number]) Out-Patient Physical Therapy Visit Information Visit Information Visit Type Treatment Note Visit Start Time 08:40 Visit Stop Time 09:40 Total Visit Minutes 60 Visit Number 11 Number of CERTIFIED GENETIC COUNSELOR Visits 0 Precautions Precautions right TKA 10/31/18 PT-OP-B Current Condition Start: 10/26/18 19:01 Freq: Status: Active Protocol: Document 11/07/18 09:02 SAK (Rec: 11/07/18 09:46 SAK [id number]) Current Condition History of Current Condition Onset Date right TKA 10/31/18 Current Complaints right knee pain, functional limitations History of Current Condition Right TKA 10/31/18 Future Testing and Treatments Planned Sees Dr. Faulkner 11/10/18 Treatment Goals Patient/Caregiver Goals be able to return to walking without pain after surgery Prior Functional Status Baseline Function- ADL's Independent Baseline Function- Mobility Independent Baseline Function- Gait Independent without device Baseline Function- Work/School Retired Baseline Function- Recreation/Hobbies Independent, active Baseline Function- Other she has two story house but does not have to do the stairs , can stay on main level Current Functional Impairments (Reported) Functional Limitations- ADL's painful, use of cane and walker Functional Limitations- Mobility/Gait Limited to short distances, uses cane or walker Functional Limitations- Recreation/ Unable at this time Hobbies Functional Limitations- Other difficult to sleep due to pain Personal Factors Other Personal Factors That May Effect history of left BRIAN Therapy/Recovery PT-OP-C Subjective Start: 10/26/18 19:01 Freq: Status: Active Protocol: Document 12/15/18 08:40 SAK (Rec: 12/15/18 11:01 SAK [id number]) OP-PT Subjective Patient Comments Patient Comments Got compression stocking, thinks it is helping some. Had horrible night's sleep, frustrated with pain. Saw Dr. Faulkner who said her knee looks good but recommended further PT due to stiffness and pain. PT-OP-G Mobility & Gait Start: 10/26/18 19:01 Freq: Status: Active Protocol: Document 10/26/18 16:00 DLM (Rec: 10/30/18 08:26 DLM [id number]) OP Mobility Evaluation Bed Mobility Rolling Independent Supine to and from Sit Independent Transfers Sit to Stand independent with UE's, educated pt on how to kick foot out like she will use after surgery to manage right knee pain after TKA Bed to Chair Transfers Independent Car Transfers educated pt to sit then turn when getting into car OP Gait Assessment Gait Gait Assistance Required: Independent Assistive Devices Assistive Device None Gait Deviations General Gait Pattern Antalgic Factors Limiting Gait Function Factors Limiting Gait Function Pain Stair Climbing Evaluation Evaluation Level of Assist On Stairs Independent Devices Stair Climbing Assistive Devices Left Railing Technique/Endurance Stair Climbing Direction Ascend and Descend Stair Climbing Technique Step Over Step Comments Stair Climbing Comments educated pt in using step-to pattern for right knee management after surgery PT-OP-J Posture/Palpation/Skin Start: 10/26/18 19:01 Freq: Status: Active Protocol: Document 11/07/18 09:02 [facility] (Rec: 11/08/18 08:36 [facility] [id number]) Palpation Assessment Location right knee Palpation Details mild increase in warmth Skin Assessment Edema Assessment right knee Edema Type Non-Pitting Edema Degree 2+ Edema Appearance Puffy Incisional Assessment Incision Appearance/Comments under post-op dressing. No signs or symptoms of infection surrounding area. PT-OP-K Range of Motion Start: 10/26/18 19:01 Freq: Status: Active Protocol: Document 11/07/18 09:02 [facility] (Rec: 11/08/18 08:40 [facility] [id number]) Knee Goniometric Range of Motion Knee Right Knee ROM WFL No Patient Position Supine Flexion Active (degrees) 82 Flexion Passive (degrees) 88 Extension Active (degrees) 22 Extension Passive (degrees) 12 Left Patient Position Sitting Flexion Active (degrees) 115 Extension Active (degrees) 0 PT-OP-M Strength Start: 10/26/18 19:01 Freq: Status: Active Protocol: Document 11/07/18 09:02 SAK (Rec: 11/07/18 09:46 SAK [id number]) Hip Strength Hip Manual Muscle Testing Right Reason Not Measured Pain Knee Strength Knee Manual Muscle Testing Right Flexion (S2) 3- Fair- Extension (L3) 3- Fair- Comments s/p right TKA; no MMT, patient does not have full anti- gravity strength Ankle/Foot Strength Ankle and Foot Manual Muscle Testing Right Dorsiflexion (L4) 5 Normal Plantarflexion (S1) 5 Normal Left Dorsiflexion (L4) 5 Normal Plantarflexion (S1) 5 Normal PT-OP-Q Treatments Start: 10/26/18 19:01 Freq: Status: Active Protocol: Document 12/15/18 08:40 [facility] (Rec: 12/15/18 11:01 [facility] [id number]) Cardio Equipment Bicycle (Upright) Duration (Minutes) 10 Resistance 1 Seat Position 5-4 Therapeutic Exercises Supine Exercises SAQ Reps/Minutes 5 x 10 Prone Exercises quad stretch Equipment Used belt Comments passive stretch and contract/ relax with PT assist Sitting Exercises LAQ Reps/Minutes 5 x 10 Standing Exercises HC stretch Equipment Used AR Reps/Minutes 2x Gait Training Gait Activity stairs Description 20 4 stairs Comments able to ascend alternating pattern, descends with step-to due to high pain level Manual Therapy Treatment Soft Tissue Mobilization right quads: tool assisted Mobilization Type Instrument Assisted Rolling Strumming right quads, hams Mobilization Type Rolling Intensity/Depth Moderate Body Position Hooklying Comments scar mobs Joint Mobilizations tibiofemoral Direction posterior glide Body Position Supine Reps/Duration 5 min Comments right knee flexed, foot on table PF Direction sup/inf Manual Techniques contract/relax to increase knee flex Body Location right knee Reps/Duration 6x Comments prone, sitting: patient in instructed in self-stretching contract/relax technique PT-OP-R Modalities Start: 10/26/18 19:01 Freq: Status: Active Protocol: Document 12/15/18 08:40 [facility] (Rec: 12/15/18 15:07 [facility] [id number]) Electric Stimulation Electric Stimulation Interferential Current (IFC) Body Location right knee Duration (Minutes) 15 Intensity 7 Target/Sweep Sweep High/Low High Patient Position Hooklying Combined With Heat/Cold Cold Pack Comments cryocuff PT-OP-T Assessment and Plan Start: 10/26/18 19:01 Freq: Status: Active Protocol: Document 12/15/18 08:40 [facility] (Rec: 08/09/19 15:07 SAK [id number]) Physical Therapy Assessment Goals Four Impairment edema Short Term Goal (STG) Educate patient in edema management and redluction STG Duration 11/14/18 Component Overhaul Operator Goal (LTG) Decrease edema right knee to minimal levels LTG Duration 02/07/19 Three Impairment strength Short Term Goal (STG) Improve right knee strength to 3+/5 STG Duration 12/08/18 Intermediate Goal (LTG) Improve right knee strength to at least 4+/5 to allow for safe and independent mobility in the home and community and return to taking walks Two Impairment gait Short Term Goal (STG) Patient able to ambulate with appropriate assistive device without limp or compensation on level surfaces STG Duration 12/08/18 Intermediate Goal (LTG) Patient able to walk on level surfaces and stairs without assitive device without limp or compensation LTG Duration 02/07/19 One Impairment ROM Short Term Goal (STG) Improve right knee AROM to 5- 100 STG Duration 12/08/18 Intermediate Goal (LTG) Improve right knee AROM to 0- 120 LTG Duration 02/07/19 Assessment Summary Assessment AROM 3-110 after extensive manual treatment and stretching. Patient demonstrated good understanding of contract/ relax technique for home. Feel soft tissue tightness in right quad and scar as well as edema limiting her ROM. Compression stocking has good fit but low compression, may need new compression stocking with increased compression. Physical Therapy Plan Frequency and Duration Frequency of Treatment 2x/wk Duration of Treatment 12 wks Plan of Care Start Date 11/07/18 Plan of Care End Date 02/07/19 Therapeutic Interventions Therapeutic Interventions Aquatic Therapy Gait Training Home Exercise Program Joint Mobilizations Manual Therapy Neuromuscular Re-education Patient/Caregiver Education Self-Care/Home Management Soft Tissue Mobilization Taping Therapeutic Activities Therapeutic Exercises Modalities Cold Pack/Ice Massage Electric Stimulation Next Visit Focus/Plan Next Note Type Treatment Note Next Visit Plan Evaluate response to last session and progress as tolerated, emphasis on improving soft tissue and joint mobility right knee for improved function
--- NOTE | 2018-12-15 15:14 | PT.OPPN ---
Current Diagnoses Unilateral primary osteoarthritis, right knee (12/15/18) Pain in right knee (12/15/18) Difficulty in walking, not elsewhere classified (12/15/18) Presence of right artificial knee joint (12/15/18) Physical Therapy Progress Note PT-OP-A Visit Information Start: 10/26/18 19:01 Freq: Status: Active Protocol: Document 12/15/18 08:40 SAK (Rec: 12/15/18 11:01 SAK [id number]) Out-Patient Physical Therapy Visit Information Visit Information Visit Type Treatment Note Visit Start Time 08:40 Visit Stop Time 09:40 Total Visit Minutes 60 Visit Number 11 Number of WORKFORCE PLANNER Visits 0 Precautions Precautions right TKA 10/31/18 PT-OP-B Current Condition Start: 10/26/18 19:01 Freq: Status: Active Protocol: Document 11/07/18 09:02 SAK (Rec: 11/07/18 09:46 SAK [id number]) Current Condition History of Current Condition Onset Date right TKA 10/31/18 Current Complaints right knee pain, functional limitations History of Current Condition Right TKA 10/31/18 Future Testing and Treatments Planned Sees Dr. Faulkner 11/10/18 Treatment Goals Patient/Caregiver Goals be able to return to walking without pain after surgery Prior Functional Status Baseline Function- ADL's Independent Baseline Function- Mobility Independent Baseline Function- Gait Independent without device Baseline Function- Work/School Retired Baseline Function- Recreation/Hobbies Independent, active Baseline Function- Other she has two story house but does not have to do the stairs , can stay on main level Current Functional Impairments (Reported) Functional Limitations- ADL's painful, use of cane and walker Functional Limitations- Mobility/Gait Limited to short distances, uses cane or walker Functional Limitations- Recreation/ Unable at this time Hobbies Functional Limitations- Other difficult to sleep due to pain Personal Factors Other Personal Factors That May Effect history of left BRIAN Therapy/Recovery PT-OP-C Subjective Start: 10/26/18 19:01 Freq: Status: Active Protocol: Document 12/15/18 08:40 SAK (Rec: 12/15/18 11:01 SAK [id number]) OP-PT Subjective Patient Comments Patient Comments Got compression stocking, thinks it is helping some. Had horrible night's sleep, frustrated with pain. Saw Dr. Faulkner who said her knee looks good but recommended further PT due to stiffness and pain. PT-OP-G Mobility & Gait Start: 10/26/18 19:01 Freq: Status: Active Protocol: Document 10/26/18 16:00 DLM (Rec: 10/30/18 08:26 DLM [id number]) OP Mobility Evaluation Bed Mobility Rolling Independent Supine to and from Sit Independent Transfers Sit to Stand independent with UE's, educated pt on how to kick foot out like she will use after surgery to manage right knee pain after TKA Bed to Chair Transfers Independent Car Transfers educated pt to sit then turn when getting into car OP Gait Assessment Gait Gait Assistance Required: Independent Assistive Devices Assistive Device None Gait Deviations General Gait Pattern Antalgic Factors Limiting Gait Function Factors Limiting Gait Function Pain Stair Climbing Evaluation Evaluation Level of Assist On Stairs Independent Devices Stair Climbing Assistive Devices Left Railing Technique/Endurance Stair Climbing Direction Ascend and Descend Stair Climbing Technique Step Over Step Comments Stair Climbing Comments educated pt in using step-to pattern for right knee management after surgery PT-OP-J Posture/Palpation/Skin Start: 10/26/18 19:01 Freq: Status: Active Protocol: Document 11/07/18 09:02 [facility] (Rec: 11/08/18 08:36 [facility] [id number]) Palpation Assessment Location right knee Palpation Details mild increase in warmth Skin Assessment Edema Assessment right knee Edema Type Non-Pitting Edema Degree 2+ Edema Appearance Puffy Incisional Assessment Incision Appearance/Comments under post-op dressing. No signs or symptoms of infection surrounding area. PT-OP-K Range of Motion Start: 10/26/18 19:01 Freq: Status: Active Protocol: Document 11/07/18 09:02 [facility] (Rec: 11/08/18 08:40 [facility] [id number]) Knee Goniometric Range of Motion Knee Measured in Degrees Right Knee ROM WFL No Patient Position Supine Flexion Active (degrees) 82 Flexion Passive (degrees) 88 Extension Active (degrees) 22 Extension Passive (degrees) 12 Left Patient Position Sitting Flexion Active (degrees) 115 Extension Active (degrees) 0 PT-OP-M Strength Start: 10/26/18 19:01 Freq: Status: Active Protocol: Document 11/07/18 09:02 SAK (Rec: 11/07/18 09:46 SAK [id number]) Hip Strength Hip Manual Muscle Testing Right Reason Not Measured Pain Knee Strength Knee Manual Muscle Testing Right Flexion (S2) 3- Fair- Extension (L3) 3- Fair- Comments s/p right TKA; no MMT, patient does not have full anti- gravity strength Ankle/Foot Strength Ankle and Foot Manual Muscle Testing Right Dorsiflexion (L4) 5 Normal Plantarflexion (S1) 5 Normal Left Dorsiflexion (L4) 5 Normal Plantarflexion (S1) 5 Normal PT-OP-T Assessment and Plan Start: 10/26/18 19:01 Freq: Status: Active Protocol: Document 12/15/18 08:40 [facility] (Rec: 12/15/18 15:07 [facility] [id number]) Physical Therapy Assessment Goals Four Impairment edema Short Term Goal (STG) Educate patient in edema management and redluction STG Duration goal met Can Tester Goal (LTG) Decrease edema right knee to minimal levels 12/15/18: goal progress, still some persistent edema limting progress LTG Duration 02/07/19 Three Impairment strength Short Term Goal (STG) Improve right knee strength to 3+/5 12/15/18: MET within available ROM STG Duration goal met Can Tester Goal (LTG) Improve right knee strength to at least 4+/5 to allow for safe and independent mobility in the home and community and return to taking walks LTG Duration 02/07/19 Two Impairment gait Short Term Goal (STG) Patient able to ambulate with appropriate assistive device without limp or compensation on level surfaces 12/15/18: goal met STG Duration MET Detention Goal (LTG) Patient able to walk on level surfaces and stairs without assitive device without limp or compensation 12/15/18: goal met on level surfaces but stairs painful, unable to descend with alternating pattern LTG Duration 02/07/19 One Impairment ROM Short Term Goal (STG) Improve right knee AROM to 5- 100 12/15/18: goal met STG Duration MET Can Tester Goal (LTG) Improve right knee AROM to 0- 120 LTG Duration 02/07/19 Assessment Summary Assessment AROM 3-110 after extensive manual treatment and stretching. Patient demonstrated good understanding of contract/ relax technique for home. Feel soft tissue tightness in right quad and scar as well as edema limiting her ROM. Compression stocking has good fit but low compression, may need new compression stocking with increased compression. Physical Therapy Plan Frequency and Duration Frequency of Treatment 2x/wk Duration of Treatment 12 wks Plan of Care Start Date 11/07/18 Plan of Care End Date 02/07/19 Therapeutic Interventions Therapeutic Interventions Aquatic Therapy Gait Training Home Exercise Program Joint Mobilizations Manual Therapy Neuromuscular Re-education Patient/Caregiver Education Self-Care/Home Management Soft Tissue Mobilization Taping Therapeutic Activities Therapeutic Exercises Modalities Cold Pack/Ice Massage Electric Stimulation Next Visit Focus/Plan Next Note Type Treatment Note Next Visit Plan Evaluate response to last session and progress as tolerated, emphasis on improving soft tissue and joint mobility right knee for improved function
--- NOTE | 2018-12-18 10:30 | PT.OTN ---
Current Diagnoses Unilateral primary osteoarthritis, right knee (12/20/18) Pain in right knee (12/20/18) Difficulty in walking, not elsewhere classified (12/20/18) Presence of right artificial knee joint (12/20/18) Physical Therapy Treatment Note PT-OP-A Visit Information Start: 10/26/18 19:01 Freq: Status: Active Protocol: Document 12/18/18 10:30 SAK (Rec: 12/20/18 11:16 SAK [id number]) Out-Patient Physical Therapy Visit Information Visit Information Visit Type Treatment Note Visit Start Time 08:40 Visit Stop Time 09:40 Total Visit Minutes 60 Visit Number 12 Number of DIRECTOR OF INSTRUCTION Visits 0 Evaluation Information Evaluation Date 10/26/18 Precautions Precautions right TKA 10/31/18 PT-OP-B Current Condition Start: 10/26/18 19:01 Freq: Status: Active Protocol: Document 11/07/18 09:02 SAK (Rec: 11/07/18 09:46 SAK [id number]) Current Condition History of Current Condition Onset Date right TKA 10/31/18 Current Complaints right knee pain, functional limitations History of Current Condition Right TKA 10/31/18 Future Testing and Treatments Planned Sees Dr. Faulkner 11/10/18 Treatment Goals Patient/Caregiver Goals be able to return to walking without pain after surgery Prior Functional Status Baseline Function- ADL's Independent Baseline Function- Mobility Independent Baseline Function- Gait Independent without device Baseline Function- Work/School Retired Baseline Function- Recreation/Hobbies Independent, active Baseline Function- Other she has two story house but does not have to do the stairs , can stay on main level Current Functional Impairments (Reported) Functional Limitations- ADL's painful, use of cane and walker Functional Limitations- Mobility/Gait Limited to short distances, uses cane or walker Functional Limitations- Recreation/ Unable at this time Hobbies Functional Limitations- Other difficult to sleep due to pain Personal Factors Other Personal Factors That May Effect history of left BRIAN Therapy/Recovery PT-OP-C Subjective Start: 10/26/18 19:01 Freq: Status: Active Protocol: Document 12/18/18 10:30 SAK (Rec: 12/20/18 11:16 SAK [id number]) OP-PT Subjective Patient Comments Patient Comments feels tight, frustrated stairs still painful PT-OP-G Mobility & Gait Start: 10/26/18 19:01 Freq: Status: Active Protocol: Document 10/26/18 16:00 DLM (Rec: 10/30/18 08:26 DLM [id number]) OP Mobility Evaluation Bed Mobility Rolling Independent Supine to and from Sit Independent Transfers Sit to Stand independent with UE's, educated pt on how to kick foot out like she will use after surgery to manage right knee pain after TKA Bed to Chair Transfers Independent Car Transfers educated pt to sit then turn when getting into car OP Gait Assessment Gait Gait Assistance Required: Independent Assistive Devices Assistive Device None Gait Deviations General Gait Pattern Antalgic Factors Limiting Gait Function Factors Limiting Gait Function Pain Stair Climbing Evaluation Evaluation Level of Assist On Stairs Independent Devices Stair Climbing Assistive Devices Left Railing Technique/Endurance Stair Climbing Direction Ascend and Descend Stair Climbing Technique Step Over Step Comments Stair Climbing Comments educated pt in using step-to pattern for right knee management after surgery PT-OP-J Posture/Palpation/Skin Start: 10/26/18 19:01 Freq: Status: Active Protocol: Document 11/07/18 09:02 [facility] (Rec: 11/08/18 08:36 [facility] [id number]) Palpation Assessment Location right knee Palpation Details mild increase in warmth Skin Assessment Edema Assessment right knee Edema Type Non-Pitting Edema Degree 2+ Edema Appearance Puffy Incisional Assessment Incision Appearance/Comments under post-op dressing. No signs or symptoms of infection surrounding area. PT-OP-K Range of Motion Start: 10/26/18 19:01 Freq: Status: Active Protocol: Document 11/07/18 09:02 [facility] (Rec: 11/08/18 08:40 [facility] [id number]) Knee Goniometric Range of Motion Knee Right Knee ROM WFL No Patient Position Supine Flexion Active (degrees) 82 Flexion Passive (degrees) 88 Extension Active (degrees) 22 Extension Passive (degrees) 12 Left Patient Position Sitting Flexion Active (degrees) 115 Extension Active (degrees) 0 PT-OP-M Strength Start: 10/26/18 19:01 Freq: Status: Active Protocol: Document 11/07/18 09:02 SAK (Rec: 11/07/18 09:46 [facility] [id number]) Hip Strength Hip Manual Muscle Testing Right Reason Not Measured Pain Knee Strength Knee Manual Muscle Testing Right Flexion (S2) 3- Fair- Extension (L3) 3- Fair- Comments s/p right TKA; no MMT, patient does not have full anti- gravity strength Ankle/Foot Strength Ankle and Foot Manual Muscle Testing Right Dorsiflexion (L4) 5 Normal Plantarflexion (S1) 5 Normal Left Dorsiflexion (L4) 5 Normal Plantarflexion (S1) 5 Normal PT-OP-Q Treatments Start: 10/26/18 19:01 Freq: Status: Active Protocol: Document 12/18/18 10:30 [facility] (Rec: 12/20/18 11:16 [facility] [id number]) Cardio Equipment Bicycle (Upright) Duration (Minutes) 10 Resistance 1 Seat Position 5-4 Therapeutic Exercises Supine Exercises gravity assisted knee flex Reps/Minutes 12x Comments manual assist SAQ Reps/Minutes 5 x 10 knee flex Equipment Used therapy ball Reps/Minutes 10x Prone Exercises quad stretch Equipment Used belt Comments passive stretch and contract/ relax with PT assist Sitting Exercises LAQ Reps/Minutes 5 x 10 Gait Training Gait Activity gait without device Device Used none Level of Assistance verbal and manual cues Surface level Distance/Duration 1 min Manual Therapy Treatment Soft Tissue Mobilization right quads: tool assisted Mobilization Type Instrument Assisted Rolling Strumming right quads, hams Mobilization Type Rolling Intensity/Depth Moderate Body Position Hooklying Comments scar mobs Joint Mobilizations PF Direction sup/inf Manual Techniques contract/relax to increase knee flex Body Location right knee Reps/Duration 6x Comments prone, sitting: patient in instructed in self-stretching contract/relax technique PT-OP-R Modalities Start: 10/26/18 19:01 Freq: Status: Active Protocol: Document 12/18/18 10:30 [facility] (Rec: 12/20/18 11:16 [facility] [id number]) Electric Stimulation Electric Stimulation Interferential Current (IFC) Body Location right knee Duration (Minutes) 15 Intensity 7 Target/Sweep Sweep High/Low High Patient Position Hooklying Combined With Heat/Cold Cold Pack Comments cryocuff PT-OP-T Assessment and Plan Start: 10/26/18 19:01 Freq: Status: Active Protocol: Document 12/18/18 10:30 [facility] (Rec: 12/20/18 11:16 [facility] [id number]) Physical Therapy Assessment Goals Four Impairment edema Short Term Goal (STG) Educate patient in edema management and redluction STG Duration goal met Longterm Goal (LTG) Decrease edema right knee to minimal levels 12/15/18: goal progress, still some persistent edema limting progress LTG Duration 02/07/19 Three Impairment strength Short Term Goal (STG) Improve right knee strength to 3+/5 12/15/18: MET within available ROM STG Duration goal met Longterm Goal (LTG) Improve right knee strength to at least 4+/5 to allow for safe and independent mobility in the home and community and return to taking walks LTG Duration 02/07/19 Two Impairment gait Short Term Goal (STG) Patient able to ambulate with appropriate assistive device without limp or compensation on level surfaces 12/15/18: goal met STG Duration MET Longterm Goal (LTG) Patient able to walk on level surfaces and stairs without assitive device without limp or compensation 12/15/18: goal met on level surfaces but stairs painful, unable to descend with alternating pattern LTG Duration 02/07/19 One Impairment ROM Short Term Goal (STG) Improve right knee AROM to 5- 100 12/15/18: goal met STG Duration MET Roll Wrapper Goal (LTG) Improve right knee AROM to 0- 120 LTG Duration 02/07/19 Progress Towards Goals Progress Towards Goals Progressing Toward Goals Assessment Summary Assessment AROM 3-112. Decreased muscle tightness after manual treatment. Physical Therapy Plan Frequency and Duration Frequency of Treatment 2x/wk Duration of Treatment 12 wks Plan of Care Start Date 11/07/18 Plan of Care End Date 02/07/19 Therapeutic Interventions Therapeutic Interventions Aquatic Therapy Gait Training Home Exercise Program Joint Mobilizations Manual Therapy Neuromuscular Re-education Patient/Caregiver Education Self-Care/Home Management Soft Tissue Mobilization Taping Therapeutic Activities Therapeutic Exercises Modalities Cold Pack/Ice Massage Electric Stimulation Next Visit Focus/Plan Next Note Type Treatment Note Next Visit Plan Continue PT per POC
--- NOTE | 2018-12-18 10:30 | PT.OTN ---
Current Diagnoses Unilateral primary osteoarthritis, right knee (12/20/18) Pain in right knee (12/20/18) Difficulty in walking, not elsewhere classified (12/20/18) Presence of right artificial knee joint (12/20/18) Physical Therapy Treatment Note PT-OP-A Visit Information Start: 10/26/18 19:01 Freq: Status: Active Protocol: Document 12/20/18 10:30 SAK (Rec: 12/20/18 11:16 SAK [id number]) Out-Patient Physical Therapy Visit Information Visit Information Visit Type Treatment Note Visit Start Time 08:40 Visit Stop Time 09:40 Total Visit Minutes 60 Visit Number 12 Number of GOAT DRIVER Visits 0 Evaluation Information Evaluation Date 10/26/18 Precautions Precautions right TKA 10/31/18 PT-OP-B Current Condition Start: 10/26/18 19:01 Freq: Status: Active Protocol: Document 11/07/18 09:02 SAK (Rec: 11/07/18 09:46 SAK [id number]) Current Condition History of Current Condition Onset Date right TKA 10/31/18 Current Complaints right knee pain, functional limitations History of Current Condition Right TKA 10/31/18 Future Testing and Treatments Planned Sees Dr. Faulkner 11/10/18 Treatment Goals Patient/Caregiver Goals be able to return to walking without pain after surgery Prior Functional Status Baseline Function- ADL's Independent Baseline Function- Mobility Independent Baseline Function- Gait Independent without device Baseline Function- Work/School Retired Baseline Function- Recreation/Hobbies Independent, active Baseline Function- Other she has two story house but does not have to do the stairs , can stay on main level Current Functional Impairments (Reported) Functional Limitations- ADL's painful, use of cane and walker Functional Limitations- Mobility/Gait Limited to short distances, uses cane or walker Functional Limitations- Recreation/ Unable at this time Hobbies Functional Limitations- Other difficult to sleep due to pain Personal Factors Other Personal Factors That May Effect history of left BRIAN Therapy/Recovery PT-OP-C Subjective Start: 10/26/18 19:01 Freq: Status: Active Protocol: Document 12/20/18 10:30 SAK (Rec: 12/20/18 11:16 SAK [id number]) OP-PT Subjective Patient Comments Patient Comments feels tight, frustrated stairs still painful PT-OP-G Mobility & Gait Start: 10/26/18 19:01 Freq: Status: Active Protocol: Document 10/26/18 16:00 DLM (Rec: 10/30/18 08:26 DLM [id number]) OP Mobility Evaluation Bed Mobility Rolling Independent Supine to and from Sit Independent Transfers Sit to Stand independent with UE's, educated pt on how to kick foot out like she will use after surgery to manage right knee pain after TKA Bed to Chair Transfers Independent Car Transfers educated pt to sit then turn when getting into car OP Gait Assessment Gait Gait Assistance Required: Independent Assistive Devices Assistive Device None Gait Deviations General Gait Pattern Antalgic Factors Limiting Gait Function Factors Limiting Gait Function Pain Stair Climbing Evaluation Evaluation Level of Assist On Stairs Independent Devices Stair Climbing Assistive Devices Left Railing Technique/Endurance Stair Climbing Direction Ascend and Descend Stair Climbing Technique Step Over Step Comments Stair Climbing Comments educated pt in using step-to pattern for right knee management after surgery PT-OP-J Posture/Palpation/Skin Start: 10/26/18 19:01 Freq: Status: Active Protocol: Document 11/07/18 09:02 [facility] (Rec: 11/08/18 08:36 [facility] [id number]) Palpation Assessment Location right knee Palpation Details mild increase in warmth Skin Assessment Edema Assessment right knee Edema Type Non-Pitting Edema Degree 2+ Edema Appearance Puffy Incisional Assessment Incision Appearance/Comments under post-op dressing. No signs or symptoms of infection surrounding area. PT-OP-K Range of Motion Start: 10/26/18 19:01 Freq: Status: Active Protocol: Document 11/07/18 09:02 [facility] (Rec: 11/08/18 08:40 [facility] [id number]) Knee Goniometric Range of Motion Knee Right Knee ROM WFL No Patient Position Supine Flexion Active (degrees) 82 Flexion Passive (degrees) 88 Extension Active (degrees) 22 Extension Passive (degrees) 12 Left Patient Position Sitting Flexion Active (degrees) 115 Extension Active (degrees) 0 PT-OP-M Strength Start: 10/26/18 19:01 Freq: Status: Active Protocol: Document 11/07/18 09:02 SAK (Rec: 11/07/18 09:46 [facility] [id number]) Hip Strength Hip Manual Muscle Testing Right Reason Not Measured Pain Knee Strength Knee Manual Muscle Testing Right Flexion (S2) 3- Fair- Extension (L3) 3- Fair- Comments s/p right TKA; no MMT, patient does not have full anti- gravity strength Ankle/Foot Strength Ankle and Foot Manual Muscle Testing Right Dorsiflexion (L4) 5 Normal Plantarflexion (S1) 5 Normal Left Dorsiflexion (L4) 5 Normal Plantarflexion (S1) 5 Normal PT-OP-Q Treatments Start: 10/26/18 19:01 Freq: Status: Active Protocol: Document 12/20/18 10:30 SAK (Rec: 12/20/18 11:16 SAK [id number]) Cardio Equipment Bicycle (Upright) Duration (Minutes) 10 Resistance 1 Seat Position 5-4 Gym Equipment Shuttle Recovery Unilateral Squats Resistance 25 luís Shuttle Recovery Platform Stable Reps/Time 2x10 Bilateral Squats Resistance 75 Shuttle Recovery Platform Stable Reps/Time 2 x 10 Therapeutic Exercises Supine Exercises HS stretch Reps/Minutes 2x30 gravity assisted knee flex Reps/Minutes 12x Comments manual assist SAQ Reps/Minutes 5 x 10 knee flex Equipment Used therapy ball Reps/Minutes 10x Prone Exercises quad stretch Equipment Used belt Comments passive stretch and contract/ relax with PT assist Sitting Exercises LAQ Reps/Minutes 5 x 10 Standing Exercises squat Reps/Minutes 10x knee extension Resistance L2 TB Reps/Minutes 12x stair lunge Reps/Minutes 10x2 HC stretch Equipment Used AR Reps/Minutes 2x Gait Training Gait Activity gait without device Device Used none Level of Assistance verbal and manual cues Surface level Distance/Duration 1 min Manual Therapy Treatment Soft Tissue Mobilization right quads: tool assisted Mobilization Type Instrument Assisted Rolling Strumming right quads, hams Mobilization Type Rolling Intensity/Depth Moderate Body Position Hooklying Comments scar mobs Joint Mobilizations tibiofemoral Direction posterior glide Body Position Supine Reps/Duration 5 min Comments right knee flexed, foot on table PF Direction sup/inf Manual Techniques contract/relax to increase knee flex Body Location right knee Reps/Duration 6x Comments prone, sitting: patient in instructed in self-stretching contract/relax technique PT-OP-R Modalities Start: 10/26/18 19:01 Freq: Status: Active Protocol: Document 12/20/18 10:30 SAK (Rec: 12/20/18 11:16 SAK [id number]) Electric Stimulation Electric Stimulation Interferential Current (IFC) Body Location right knee Duration (Minutes) 15 Intensity 7 Target/Sweep Sweep High/Low High Patient Position Hooklying Combined With Heat/Cold Cold Pack Comments cryocuff PT-OP-T Assessment and Plan Start: 10/26/18 19:01 Freq: Status: Active Protocol: Document 12/20/18 10:30 [facility] (Rec: 12/20/18 11:16 [facility] [id number]) Physical Therapy Assessment Goals Four Impairment edema Short Term Goal (STG) Educate patient in edema management and redluction STG Duration goal met Field Mechanic Goal (LTG) Decrease edema right knee to minimal levels 12/15/18: goal progress, still some persistent edema limting progress LTG Duration 02/07/19 Three Impairment strength Short Term Goal (STG) Improve right knee strength to 3+/5 12/15/18: MET within available ROM STG Duration goal met Field Mechanic Goal (LTG) Improve right knee strength to at least 4+/5 to allow for safe and independent mobility in the home and community and return to taking walks LTG Duration 02/07/19 Two Impairment gait Short Term Goal (STG) Patient able to ambulate with appropriate assistive device without limp or compensation on level surfaces 12/15/18: goal met STG Duration MET [facility] Goal (LTG) Patient able to walk on level surfaces and stairs without assitive device without limp or compensation 12/15/18: goal met on level surfaces but stairs painful, unable to descend with alternating pattern LTG Duration 02/07/19 One Impairment ROM Short Term Goal (STG) Improve right knee AROM to 5- 100 12/15/18: goal met STG Duration MET [facility] Goal (LTG) Improve right knee AROM to 0- 120 LTG Duration 02/07/19 Progress Towards Goals Progress Towards Goals Progressing Toward Goals Assessment Summary Assessment AROM 3-112. Decreased muscle tightness after manual treatment. Physical Therapy Plan Frequency and Duration Frequency of Treatment 2x/wk Duration of Treatment 12 wks Plan of Care Start Date 11/07/18 Plan of Care End Date 02/07/19 Therapeutic Interventions Therapeutic Interventions Aquatic Therapy Gait Training Home Exercise Program Joint Mobilizations Manual Therapy Neuromuscular Re-education Patient/Caregiver Education Self-Care/Home Management Soft Tissue Mobilization Taping Therapeutic Activities Therapeutic Exercises Modalities Cold Pack/Ice Massage Electric Stimulation Next Visit Focus/Plan Next Note Type Treatment Note Next Visit Plan Continue PT per POC
--- NOTE | 2018-12-18 10:30 | PT.OTN ---
Current Diagnoses Unilateral primary osteoarthritis, right knee (12/20/18) Pain in right knee (12/20/18) Difficulty in walking, not elsewhere classified (12/20/18) Presence of right artificial knee joint (12/20/18) Physical Therapy Treatment Note PT-OP-A Visit Information Start: 10/26/18 19:01 Freq: Status: Active Protocol: Document 12/18/18 10:30 SAK (Rec: 12/20/18 11:16 SAK [id number]) Out-Patient Physical Therapy Visit Information Visit Information Visit Type Treatment Note Visit Start Time 08:40 Visit Stop Time 09:40 Total Visit Minutes 60 Visit Number 12 Number of BIOASSAYIST Visits 0 Evaluation Information Evaluation Date 10/26/18 Precautions Precautions right TKA 10/31/18 PT-OP-B Current Condition Start: 10/26/18 19:01 Freq: Status: Active Protocol: Document 11/07/18 09:02 SAK (Rec: 11/07/18 09:46 SAK [id number]) Current Condition History of Current Condition Onset Date right TKA 10/31/18 Current Complaints right knee pain, functional limitations History of Current Condition Right TKA 10/31/18 Future Testing and Treatments Planned Sees Dr. Faulkner 11/10/18 Treatment Goals Patient/Caregiver Goals be able to return to walking without pain after surgery Prior Functional Status Baseline Function- ADL's Independent Baseline Function- Mobility Independent Baseline Function- Gait Independent without device Baseline Function- Work/School Retired Baseline Function- Recreation/Hobbies Independent, active Baseline Function- Other she has two story house but does not have to do the stairs , can stay on main level Current Functional Impairments (Reported) Functional Limitations- ADL's painful, use of cane and walker Functional Limitations- Mobility/Gait Limited to short distances, uses cane or walker Functional Limitations- Recreation/ Unable at this time Hobbies Functional Limitations- Other difficult to sleep due to pain Personal Factors Other Personal Factors That May Effect history of left BRIAN Therapy/Recovery PT-OP-C Subjective Start: 10/26/18 19:01 Freq: Status: Active Protocol: Document 12/18/18 10:30 SAK (Rec: 12/20/18 11:16 SAK [id number]) OP-PT Subjective Patient Comments Patient Comments feels tight, frustrated stairs still painful PT-OP-G Mobility & Gait Start: 10/26/18 19:01 Freq: Status: Active Protocol: Document 10/26/18 16:00 DLM (Rec: 10/30/18 08:26 DLM [id number]) OP Mobility Evaluation Bed Mobility Rolling Independent Supine to and from Sit Independent Transfers Sit to Stand independent with UE's, educated pt on how to kick foot out like she will use after surgery to manage right knee pain after TKA Bed to Chair Transfers Independent Car Transfers educated pt to sit then turn when getting into car OP Gait Assessment Gait Gait Assistance Required: Independent Assistive Devices Assistive Device None Gait Deviations General Gait Pattern Antalgic Factors Limiting Gait Function Factors Limiting Gait Function Pain Stair Climbing Evaluation Evaluation Level of Assist On Stairs Independent Devices Stair Climbing Assistive Devices Left Railing Technique/Endurance Stair Climbing Direction Ascend and Descend Stair Climbing Technique Step Over Step Comments Stair Climbing Comments educated pt in using step-to pattern for right knee management after surgery PT-OP-J Posture/Palpation/Skin Start: 10/26/18 19:01 Freq: Status: Active Protocol: Document 11/07/18 09:02 [facility] (Rec: 11/08/18 08:36 [facility] [id number]) Palpation Assessment Location right knee Palpation Details mild increase in warmth Skin Assessment Edema Assessment right knee Edema Type Non-Pitting Edema Degree 2+ Edema Appearance Puffy Incisional Assessment Incision Appearance/Comments under post-op dressing. No signs or symptoms of infection surrounding area. PT-OP-K Range of Motion Start: 10/26/18 19:01 Freq: Status: Active Protocol: Document 11/07/18 09:02 [facility] (Rec: 11/08/18 08:40 [facility] [id number]) Knee Goniometric Range of Motion Knee Right Knee ROM WFL No Patient Position Supine Flexion Active (degrees) 82 Flexion Passive (degrees) 88 Extension Active (degrees) 22 Extension Passive (degrees) 12 Left Patient Position Sitting Flexion Active (degrees) 115 Extension Active (degrees) 0 PT-OP-M Strength Start: 10/26/18 19:01 Freq: Status: Active Protocol: Document 11/07/18 09:02 SAK (Rec: 11/07/18 09:46 [facility] [id number]) Hip Strength Hip Manual Muscle Testing Right Reason Not Measured Pain Knee Strength Knee Manual Muscle Testing Right Flexion (S2) 3- Fair- Extension (L3) 3- Fair- Comments s/p right TKA; no MMT, patient does not have full anti- gravity strength Ankle/Foot Strength Ankle and Foot Manual Muscle Testing Right Dorsiflexion (L4) 5 Normal Plantarflexion (S1) 5 Normal Left Dorsiflexion (L4) 5 Normal Plantarflexion (S1) 5 Normal PT-OP-Q Treatments Start: 10/26/18 19:01 Freq: Status: Active Protocol: Document 12/18/18 10:30 SAK (Rec: 12/20/18 11:16 SAK [id number]) Cardio Equipment Bicycle (Upright) Duration (Minutes) 10 Resistance 1 Seat Position 5-4 Gym Equipment Shuttle Recovery Unilateral Squats Resistance 25 luís Shuttle Recovery Platform Stable Reps/Time 2x10 Bilateral Squats Resistance 75 Shuttle Recovery Platform Stable Reps/Time 2 x 10 Therapeutic Exercises Supine Exercises HS stretch Reps/Minutes 2x30 gravity assisted knee flex Reps/Minutes 12x Comments manual assist SAQ Reps/Minutes 5 x 10 knee flex Equipment Used therapy ball Reps/Minutes 10x Prone Exercises quad stretch Equipment Used belt Comments passive stretch and contract/ relax with PT assist Sitting Exercises LAQ Reps/Minutes 5 x 10 Standing Exercises squat Reps/Minutes 10x knee extension Resistance L2 TB Reps/Minutes 12x stair lunge Reps/Minutes 10x2 HC stretch Equipment Used AR Reps/Minutes 2x Gait Training Gait Activity gait without device Device Used none Level of Assistance verbal and manual cues Surface level Distance/Duration 1 min Manual Therapy Treatment Soft Tissue Mobilization right quads: tool assisted Mobilization Type Instrument Assisted Rolling Strumming right quads, hams Mobilization Type Rolling Intensity/Depth Moderate Body Position Hooklying Comments scar mobs Joint Mobilizations tibiofemoral Direction posterior glide Body Position Supine Reps/Duration 5 min Comments right knee flexed, foot on table PF Direction sup/inf Manual Techniques contract/relax to increase knee flex Body Location right knee Reps/Duration 6x Comments prone, sitting: patient in instructed in self-stretching contract/relax technique PT-OP-R Modalities Start: 10/26/18 19:01 Freq: Status: Active Protocol: Document 12/18/18 10:30 SAK (Rec: 12/20/18 11:16 SAK [id number]) Electric Stimulation Electric Stimulation Interferential Current (IFC) Body Location right knee Duration (Minutes) 15 Intensity 7 Target/Sweep Sweep High/Low High Patient Position Hooklying Combined With Heat/Cold Cold Pack Comments cryocuff PT-OP-T Assessment and Plan Start: 10/26/18 19:01 Freq: Status: Active Protocol: Document 12/18/18 10:30 SAK (Rec: 12/20/18 11:16 [facility] [id number]) Physical Therapy Assessment Goals Four Impairment edema Short Term Goal (STG) Educate patient in edema management and redluction STG Duration goal met Mask Design Engineer Goal (LTG) Decrease edema right knee to minimal levels 12/15/18: goal progress, still some persistent edema limting progress LTG Duration 02/07/19 Three Impairment strength Short Term Goal (STG) Improve right knee strength to 3+/5 12/15/18: MET within available ROM STG Duration goal met Mask Design Engineer Goal (LTG) Improve right knee strength to at least 4+/5 to allow for safe and independent mobility in the home and community and return to taking walks LTG Duration 02/07/19 Two Impairment gait Short Term Goal (STG) Patient able to ambulate with appropriate assistive device without limp or compensation on level surfaces 12/15/18: goal met STG Duration MET Shelter Goal (LTG) Patient able to walk on level surfaces and stairs without assitive device without limp or compensation 12/15/18: goal met on level surfaces but stairs painful, unable to descend with alternating pattern LTG Duration 02/07/19 One Impairment ROM Short Term Goal (STG) Improve right knee AROM to 5- 100 12/15/18: goal met STG Duration MET Shelter Goal (LTG) Improve right knee AROM to 0- 120 LTG Duration 02/07/19 Progress Towards Goals Progress Towards Goals Progressing Toward Goals Assessment Summary Assessment AROM 3-112. Decreased muscle tightness after manual treatment. Physical Therapy Plan Frequency and Duration Frequency of Treatment 2x/wk Duration of Treatment 12 wks Plan of Care Start Date 11/07/18 Plan of Care End Date 02/07/19 Therapeutic Interventions Therapeutic Interventions Aquatic Therapy Gait Training Home Exercise Program Joint Mobilizations Manual Therapy Neuromuscular Re-education Patient/Caregiver Education Self-Care/Home Management Soft Tissue Mobilization Taping Therapeutic Activities Therapeutic Exercises Modalities Cold Pack/Ice Massage Electric Stimulation Next Visit Focus/Plan Next Note Type Treatment Note Next Visit Plan Continue PT per POC
--- NOTE | 2018-12-20 10:30 | PT.OTN ---
Current Diagnoses Unilateral primary osteoarthritis, right knee (12/20/18) Pain in right knee (12/20/18) Difficulty in walking, not elsewhere classified (12/20/18) Presence of right artificial knee joint (12/20/18) Physical Therapy Treatment Note PT-OP-A Visit Information Start: 10/26/18 19:01 Freq: Status: Active Protocol: Document 12/20/18 10:30 SAK (Rec: 12/20/18 11:16 SAK [id number]) Out-Patient Physical Therapy Visit Information Visit Information Visit Type Treatment Note Visit Start Time 08:40 Visit Stop Time 09:40 Total Visit Minutes 60 Visit Number 12 Number of ELECTRICAL DRAFTER Visits 0 Evaluation Information Evaluation Date 10/26/18 Precautions Precautions right TKA 10/31/18 PT-OP-B Current Condition Start: 10/26/18 19:01 Freq: Status: Active Protocol: Document 11/07/18 09:02 SAK (Rec: 11/07/18 09:46 SAK [id number]) Current Condition History of Current Condition Onset Date right TKA 10/31/18 Current Complaints right knee pain, functional limitations History of Current Condition Right TKA 10/31/18 Future Testing and Treatments Planned Sees Dr. Faulkner 11/10/18 Treatment Goals Patient/Caregiver Goals be able to return to walking without pain after surgery Prior Functional Status Baseline Function- ADL's Independent Baseline Function- Mobility Independent Baseline Function- Gait Independent without device Baseline Function- Work/School Retired Baseline Function- Recreation/Hobbies Independent, active Baseline Function- Other she has two story house but does not have to do the stairs , can stay on main level Current Functional Impairments (Reported) Functional Limitations- ADL's painful, use of cane and walker Functional Limitations- Mobility/Gait Limited to short distances, uses cane or walker Functional Limitations- Recreation/ Unable at this time Hobbies Functional Limitations- Other difficult to sleep due to pain Personal Factors Other Personal Factors That May Effect history of left BRIAN Therapy/Recovery PT-OP-C Subjective Start: 10/26/18 19:01 Freq: Status: Active Protocol: Document 12/20/18 10:30 SAK (Rec: 12/20/18 11:16 SAK [id number]) OP-PT Subjective Patient Comments Patient Comments feels tight, frustrated stairs still painful PT-OP-G Mobility & Gait Start: 10/26/18 19:01 Freq: Status: Active Protocol: Document 10/26/18 16:00 DLM (Rec: 10/30/18 08:26 DLM [id number]) OP Mobility Evaluation Bed Mobility Rolling Independent Supine to and from Sit Independent Transfers Sit to Stand independent with UE's, educated pt on how to kick foot out like she will use after surgery to manage right knee pain after TKA Bed to Chair Transfers Independent Car Transfers educated pt to sit then turn when getting into car OP Gait Assessment Gait Gait Assistance Required: Independent Assistive Devices Assistive Device None Gait Deviations General Gait Pattern Antalgic Factors Limiting Gait Function Factors Limiting Gait Function Pain Stair Climbing Evaluation Evaluation Level of Assist On Stairs Independent Devices Stair Climbing Assistive Devices Left Railing Technique/Endurance Stair Climbing Direction Ascend and Descend Stair Climbing Technique Step Over Step Comments Stair Climbing Comments educated pt in using step-to pattern for right knee management after surgery PT-OP-J Posture/Palpation/Skin Start: 10/26/18 19:01 Freq: Status: Active Protocol: Document 11/07/18 09:02 [facility] (Rec: 11/08/18 08:36 [facility] [id number]) Palpation Assessment Location right knee Palpation Details mild increase in warmth Skin Assessment Edema Assessment right knee Edema Type Non-Pitting Edema Degree 2+ Edema Appearance Puffy Incisional Assessment Incision Appearance/Comments under post-op dressing. No signs or symptoms of infection surrounding area. PT-OP-K Range of Motion Start: 10/26/18 19:01 Freq: Status: Active Protocol: Document 11/07/18 09:02 [facility] (Rec: 11/08/18 08:40 [facility] [id number]) Knee Goniometric Range of Motion Knee Right Knee ROM WFL No Patient Position Supine Flexion Active (degrees) 82 Flexion Passive (degrees) 88 Extension Active (degrees) 22 Extension Passive (degrees) 12 Left Patient Position Sitting Flexion Active (degrees) 115 Extension Active (degrees) 0 PT-OP-M Strength Start: 10/26/18 19:01 Freq: Status: Active Protocol: Document 11/07/18 09:02 SAK (Rec: 11/07/18 09:46 [facility] [id number]) Hip Strength Hip Manual Muscle Testing Right Reason Not Measured Pain Knee Strength Knee Manual Muscle Testing Right Flexion (S2) 3- Fair- Extension (L3) 3- Fair- Comments s/p right TKA; no MMT, patient does not have full anti- gravity strength Ankle/Foot Strength Ankle and Foot Manual Muscle Testing Right Dorsiflexion (L4) 5 Normal Plantarflexion (S1) 5 Normal Left Dorsiflexion (L4) 5 Normal Plantarflexion (S1) 5 Normal PT-OP-Q Treatments Start: 10/26/18 19:01 Freq: Status: Active Protocol: Document 12/20/18 10:30 SAK (Rec: 12/20/18 11:16 SAK [id number]) Cardio Equipment Bicycle (Upright) Duration (Minutes) 10 Resistance 1 Seat Position 5-4 Gym Equipment Shuttle Recovery Unilateral Squats Resistance 25 luís Shuttle Recovery Platform Stable Reps/Time 2x10 Bilateral Squats Resistance 75 Shuttle Recovery Platform Stable Reps/Time 2 x 10 Therapeutic Exercises Supine Exercises HS stretch Reps/Minutes 2x30 gravity assisted knee flex Reps/Minutes 12x Comments manual assist SAQ Reps/Minutes 5 x 10 knee flex Equipment Used therapy ball Reps/Minutes 10x Prone Exercises quad stretch Equipment Used belt Comments passive stretch and contract/ relax with PT assist Sitting Exercises LAQ Reps/Minutes 5 x 10 Standing Exercises squat Reps/Minutes 10x knee extension Resistance L2 TB Reps/Minutes 12x stair lunge Reps/Minutes 10x2 HC stretch Equipment Used AR Reps/Minutes 2x Gait Training Gait Activity gait without device Device Used none Level of Assistance verbal and manual cues Surface level Distance/Duration 1 min Manual Therapy Treatment Soft Tissue Mobilization right quads: tool assisted Mobilization Type Instrument Assisted Rolling Strumming right quads, hams Mobilization Type Rolling Intensity/Depth Moderate Body Position Hooklying Comments scar mobs Joint Mobilizations tibiofemoral Direction posterior glide Body Position Supine Reps/Duration 5 min Comments right knee flexed, foot on table PF Direction sup/inf Manual Techniques contract/relax to increase knee flex Body Location right knee Reps/Duration 6x Comments prone, sitting: patient in instructed in self-stretching contract/relax technique PT-OP-R Modalities Start: 10/26/18 19:01 Freq: Status: Active Protocol: Document 12/20/18 10:30 SAK (Rec: 12/20/18 11:16 SAK [id number]) Electric Stimulation Electric Stimulation Interferential Current (IFC) Body Location right knee Duration (Minutes) 15 Intensity 7 Target/Sweep Sweep High/Low High Patient Position Hooklying Combined With Heat/Cold Cold Pack Comments cryocuff PT-OP-T Assessment and Plan Start: 10/26/18 19:01 Freq: Status: Active Protocol: Document 12/20/18 10:30 [facility] (Rec: 12/20/18 11:16 [facility] [id number]) Physical Therapy Assessment Goals Four Impairment edema Short Term Goal (STG) Educate patient in edema management and redluction STG Duration goal met Metal Alloy Scientist Goal (LTG) Decrease edema right knee to minimal levels 12/15/18: goal progress, still some persistent edema limting progress LTG Duration 02/07/19 Three Impairment strength Short Term Goal (STG) Improve right knee strength to 3+/5 12/15/18: MET within available ROM STG Duration goal met Metal Alloy Scientist Goal (LTG) Improve right knee strength to at least 4+/5 to allow for safe and independent mobility in the home and community and return to taking walks LTG Duration 02/07/19 Two Impairment gait Short Term Goal (STG) Patient able to ambulate with appropriate assistive device without limp or compensation on level surfaces 12/15/18: goal met STG Duration MET [facility] Goal (LTG) Patient able to walk on level surfaces and stairs without assitive device without limp or compensation 12/15/18: goal met on level surfaces but stairs painful, unable to descend with alternating pattern LTG Duration 02/07/19 One Impairment ROM Short Term Goal (STG) Improve right knee AROM to 5- 100 12/15/18: goal met STG Duration MET [facility] Goal (LTG) Improve right knee AROM to 0- 120 LTG Duration 02/07/19 Progress Towards Goals Progress Towards Goals Progressing Toward Goals Assessment Summary Assessment AROM 3-112. Decreased muscle tightness after manual treatment. Physical Therapy Plan Frequency and Duration Frequency of Treatment 2x/wk Duration of Treatment 12 wks Plan of Care Start Date 11/07/18 Plan of Care End Date 02/07/19 Therapeutic Interventions Therapeutic Interventions Aquatic Therapy Gait Training Home Exercise Program Joint Mobilizations Manual Therapy Neuromuscular Re-education Patient/Caregiver Education Self-Care/Home Management Soft Tissue Mobilization Taping Therapeutic Activities Therapeutic Exercises Modalities Cold Pack/Ice Massage Electric Stimulation Next Visit Focus/Plan Next Note Type Treatment Note Next Visit Plan Continue PT per POC
--- NOTE | 2018-12-28 16:27 | PT.OTN ---
Current Diagnoses Unilateral primary osteoarthritis, right knee (12/28/18) Pain in right knee (12/28/18) Difficulty in walking, not elsewhere classified (12/28/18) Presence of right artificial knee joint (12/28/18) Physical Therapy Treatment Note PT-OP-A Visit Information Start: 10/26/18 19:01 Freq: Status: Active Protocol: Document 12/28/18 16:17 GGD (Rec: 12/28/18 16:27 GGD [email or web address]) Out-Patient Physical Therapy Visit Information Visit Information Visit Type Treatment Note Visit Start Time 13:45 Visit Stop Time 14:45 Total Visit Minutes 60 Visit Number 14 Number of SCRUBBER MACHINE TENDER Visits 1 Evaluation Information Evaluation Date 10/26/18 PT-OP-B Current Condition Start: 10/26/18 19:01 Freq: Status: Active Protocol: Document 11/07/18 09:02 SAK (Rec: 11/07/18 09:46 SAK [id number]) Current Condition History of Current Condition Onset Date right TKA 10/31/18 Current Complaints right knee pain, functional limitations History of Current Condition Right TKA 10/31/18 Future Testing and Treatments Planned Sees Dr. Faulkner 11/10/18 Treatment Goals Patient/Caregiver Goals be able to return to walking without pain after surgery Prior Functional Status Baseline Function- ADL's Independent Baseline Function- Mobility Independent Baseline Function- Gait Independent without device Baseline Function- Work/School Retired Baseline Function- Recreation/Hobbies Independent, active Baseline Function- Other she has two story house but does not have to do the stairs , can stay on main level Current Functional Impairments (Reported) Functional Limitations- ADL's painful, use of cane and walker Functional Limitations- Mobility/Gait Limited to short distances, uses cane or walker Functional Limitations- Recreation/ Unable at this time Hobbies Functional Limitations- Other difficult to sleep due to pain Personal Factors Other Personal Factors That May Effect history of left BRIAN Therapy/Recovery PT-OP-C Subjective Start: 10/26/18 19:01 Freq: Status: Active Protocol: Document 12/28/18 16:17 GGD (Rec: 12/28/18 16:27 GGD [id number]) OP-PT Subjective Patient Comments Patient Comments Pt states she feels her progress is slow. PT-OP-G Mobility & Gait Start: 10/26/18 19:01 Freq: Status: Active Protocol: Document 10/26/18 16:00 DLM (Rec: 10/30/18 08:26 DLM [id number]) OP Mobility Evaluation Bed Mobility Rolling Independent Supine to and from Sit Independent Transfers Sit to Stand independent with UE's, educated pt on how to kick foot out like she will use after surgery to manage right knee pain after TKA Bed to Chair Transfers Independent Car Transfers educated pt to sit then turn when getting into car OP Gait Assessment Gait Gait Assistance Required: Independent Assistive Devices Assistive Device None Gait Deviations General Gait Pattern Antalgic Factors Limiting Gait Function Factors Limiting Gait Function Pain Stair Climbing Evaluation Evaluation Level of Assist On Stairs Independent Devices Stair Climbing Assistive Devices Left Railing Technique/Endurance Stair Climbing Direction Ascend and Descend Stair Climbing Technique Step Over Step Comments Stair Climbing Comments educated pt in using step-to pattern for right knee management after surgery PT-OP-J Posture/Palpation/Skin Start: 10/26/18 19:01 Freq: Status: Active Protocol: Document 11/07/18 09:02 [facility] (Rec: 11/08/18 08:36 [facility] [id number]) Palpation Assessment Location right knee Palpation Details mild increase in warmth Skin Assessment Edema Assessment right knee Edema Type Non-Pitting Edema Degree 2+ Edema Appearance Puffy Incisional Assessment Incision Appearance/Comments under post-op dressing. No signs or symptoms of infection surrounding area. PT-OP-K Range of Motion Start: 10/26/18 19:01 Freq: Status: Active Protocol: Document 11/07/18 09:02 [facility] (Rec: 11/08/18 08:40 [facility] [id number]) Knee Goniometric Range of Motion Knee Right Knee ROM WFL No Patient Position Supine Flexion Active (degrees) 82 Flexion Passive (degrees) 88 Extension Active (degrees) 22 Extension Passive (degrees) 12 Left Patient Position Sitting Flexion Active (degrees) 115 Extension Active (degrees) 0 PT-OP-M Strength Start: 10/26/18 19:01 Freq: Status: Active Protocol: Document 11/07/18 09:02 [facility] (Rec: 11/07/18 09:46 [facility] [id number]) Hip Strength Hip Manual Muscle Testing Right Reason Not Measured Pain Knee Strength Knee Manual Muscle Testing Right Flexion (S2) 3- Fair- Extension (L3) 3- Fair- Comments s/p right TKA; no MMT, patient does not have full anti- gravity strength Ankle/Foot Strength Ankle and Foot Manual Muscle Testing Right Dorsiflexion (L4) 5 Normal Plantarflexion (S1) 5 Normal Left Dorsiflexion (L4) 5 Normal Plantarflexion (S1) 5 Normal PT-OP-Q Treatments Start: 10/26/18 19:01 Freq: Status: Active Protocol: Document 12/28/18 16:17 GGD (Rec: 12/28/18 16:27 GGD [email or web address]) Cardio Equipment Bicycle (Upright) Duration (Minutes) 10 Resistance 1 Seat Position 4-3 Gym Equipment Shuttle Recovery Unilateral Squats Resistance 37 luís Shuttle Recovery Platform Stable Reps/Time 2x10 Bilateral Squats Resistance 75 Shuttle Recovery Platform Stable Reps/Time 2 x 10 Therapeutic Exercises Supine Exercises HS stretch Reps/Minutes 2x30 gravity assisted knee flex Reps/Minutes 12x Comments manual assist knee flex Equipment Used therapy ball Reps/Minutes 10x quad sets Reps/Minutes 5 x 10 Comments towel roll under ankle ankle pumps Reps/Minutes 10x Prone Exercises quad stretch Equipment Used belt Comments passive stretch and contract/ relax with PT assist Standing Exercises squat Reps/Minutes 10x knee extension Resistance L2 TB Reps/Minutes 12x stair lunge Reps/Minutes 10x2 HC stretch Equipment Used AR Reps/Minutes 2x Manual Therapy Treatment Soft Tissue Mobilization right quads, hams Mobilization Type Rolling Intensity/Depth Moderate Body Position Hooklying Comments scar mobs Joint Mobilizations tibiofemoral Direction posterior glide Body Position Supine Reps/Duration 5 min Comments right knee flexed, foot on table PF Direction sup/inf Manual Techniques contract/relax to increase knee flex Body Location right knee Reps/Duration 6x Comments prone, sitting: patient in instructed in self-stretching contract/relax technique PT-OP-R Modalities Start: 10/26/18 19:01 Freq: Status: Active Protocol: Document 12/28/18 16:17 GGD (Rec: 12/28/18 16:27 GGD [email or web address]) Electric Stimulation Electric Stimulation Interferential Current (IFC) Body Location right knee Duration (Minutes) 15 Intensity 7 Target/Sweep Sweep High/Low High Patient Position Hooklying Combined With Heat/Cold Cold Pack Comments cryocuff PT-OP-T Assessment and Plan Start: 10/26/18 19:01 Freq: Status: Active Protocol: Document 12/28/18 16:17 GGD (Rec: 12/28/18 16:27 GGD [email or web address]) Physical Therapy Assessment Assessment Summary Assessment Pt improving with knee ROM. Her active flexion improved to 118 with treatment. She had good tolerance to increase in strengthening. Physical Therapy Plan Frequency and Duration Frequency of Treatment 2x/wk Duration of Treatment 12 wks Plan of Care Start Date 11/07/18 Plan of Care End Date 02/07/19 Next Visit Focus/Plan Next Note Type Treatment Note Next Visit Plan Progress ROM and strengthening , stair mobility.
--- NOTE | 2019-01-04 15:13 | PT.OTN ---
Current Diagnoses Unilateral primary osteoarthritis, right knee (01/04/19) Pain in right knee (01/04/19) Difficulty in walking, not elsewhere classified (01/04/19) Presence of right artificial knee joint (01/04/19) Physical Therapy Treatment Note PT-OP-A Visit Information Start: 10/26/18 19:01 Freq: Status: Active Protocol: Document 01/04/19 14:26 GGD (Rec: 01/04/19 14:32 GGD [email or web address]) Out-Patient Physical Therapy Visit Information Visit Information Visit Type Treatment Note Visit Start Time 13:45 Visit Stop Time 14:45 Total Visit Minutes 60 Visit Number 15 Number of SURGICAL ATTENDANT Visits 2 Evaluation Information Evaluation Date 10/26/18 PT-OP-B Current Condition Start: 10/26/18 19:01 Freq: Status: Active Protocol: Document 11/07/18 09:02 SAK (Rec: 11/07/18 09:46 SAK [id number]) Current Condition History of Current Condition Onset Date right TKA 10/31/18 Current Complaints right knee pain, functional limitations History of Current Condition Right TKA 10/31/18 Future Testing and Treatments Planned Sees Dr. Faulkner 11/10/18 Treatment Goals Patient/Caregiver Goals be able to return to walking without pain after surgery Prior Functional Status Baseline Function- ADL's Independent Baseline Function- Mobility Independent Baseline Function- Gait Independent without device Baseline Function- Work/School Retired Baseline Function- Recreation/Hobbies Independent, active Baseline Function- Other she has two story house but does not have to do the stairs , can stay on main level Current Functional Impairments (Reported) Functional Limitations- ADL's painful, use of cane and walker Functional Limitations- Mobility/Gait Limited to short distances, uses cane or walker Functional Limitations- Recreation/ Unable at this time Hobbies Functional Limitations- Other difficult to sleep due to pain Personal Factors Other Personal Factors That May Effect history of left BRIAN Therapy/Recovery PT-OP-C Subjective Start: 10/26/18 19:01 Freq: Status: Active Protocol: Document 01/04/19 14:26 GGD (Rec: 01/04/19 14:32 GGD [email or web address]) OP-PT Subjective Patient Comments Patient Comments Pt states she is feeling better but having trouble with stairs. PT-OP-G Mobility & Gait Start: 10/26/18 19:01 Freq: Status: Active Protocol: Document 10/26/18 16:00 DLM (Rec: 10/30/18 08:26 DLM [email or web address]) OP Mobility Evaluation Bed Mobility Rolling Independent Supine to and from Sit Independent Transfers Sit to Stand independent with UE's, educated pt on how to kick foot out like she will use after surgery to manage right knee pain after TKA Bed to Chair Transfers Independent Car Transfers educated pt to sit then turn when getting into car OP Gait Assessment Gait Gait Assistance Required: Independent Assistive Devices Assistive Device None Gait Deviations General Gait Pattern Antalgic Factors Limiting Gait Function Factors Limiting Gait Function Pain Stair Climbing Evaluation Evaluation Level of Assist On Stairs Independent Devices Stair Climbing Assistive Devices Left Railing Technique/Endurance Stair Climbing Direction Ascend and Descend Stair Climbing Technique Step Over Step Comments Stair Climbing Comments educated pt in using step-to pattern for right knee management after surgery PT-OP-J Posture/Palpation/Skin Start: 10/26/18 19:01 Freq: Status: Active Protocol: Document 11/07/18 09:02 [facility] (Rec: 11/08/18 08:36 [facility] [id number]) Palpation Assessment Location right knee Palpation Details mild increase in warmth Skin Assessment Edema Assessment right knee Edema Type Non-Pitting Edema Degree 2+ Edema Appearance Puffy Incisional Assessment Incision Appearance/Comments under post-op dressing. No signs or symptoms of infection surrounding area. PT-OP-K Range of Motion Start: 10/26/18 19:01 Freq: Status: Active Protocol: Document 11/07/18 09:02 [facility] (Rec: 11/08/18 08:40 [facility] [id number]) Knee Goniometric Range of Motion Knee Right Knee ROM WFL No Patient Position Supine Flexion Active (degrees) 82 Flexion Passive (degrees) 88 Extension Active (degrees) 22 Extension Passive (degrees) 12 Left Patient Position Sitting Flexion Active (degrees) 115 Extension Active (degrees) 0 PT-OP-M Strength Start: 10/26/18 19:01 Freq: Status: Active Protocol: Document 11/07/18 09:02 [facility] (Rec: 11/07/18 09:46 [facility] [id number]) Hip Strength Hip Manual Muscle Testing Right Reason Not Measured Pain Knee Strength Knee Manual Muscle Testing Right Flexion (S2) 3- Fair- Extension (L3) 3- Fair- Comments s/p right TKA; no MMT, patient does not have full anti- gravity strength Ankle/Foot Strength Ankle and Foot Manual Muscle Testing Right Dorsiflexion (L4) 5 Normal Plantarflexion (S1) 5 Normal Left Dorsiflexion (L4) 5 Normal Plantarflexion (S1) 5 Normal PT-OP-Q Treatments Start: 10/26/18 19:01 Freq: Status: Active Protocol: Document 01/04/19 14:26 GGD (Rec: 01/04/19 14:32 GGD [email or web address]) Cardio Equipment Bicycle (Upright) Duration (Minutes) 10 Resistance 1 Seat Position 4-3 Gym Equipment Shuttle Recovery Unilateral Squats Resistance 37 luís Shuttle Recovery Platform Stable Reps/Time 2x10 Bilateral Squats Resistance 87 Shuttle Recovery Platform Stable Reps/Time 2 x 10 Therapeutic Exercises Supine Exercises gravity assisted knee flex Reps/Minutes 12x Comments manual assist Sidelying Exercises hip Abduction Sidelying Exercise Name hip abduction Side bilateral Reps/Minutes 10 clamshells Sidelying Exercise Name clamshells Side bilateral Reps/Minutes 15 Standing Exercises squat Reps/Minutes 10x Comments band around knees knee extension Resistance L2 TB Reps/Minutes 12x stair lunge Reps/Minutes 10x2 HC stretch Equipment Used AR Reps/Minutes 2x Manual Therapy Treatment Soft Tissue Mobilization right quads, hams Mobilization Type Rolling Intensity/Depth Moderate Body Position Hooklying Comments scar mobs Joint Mobilizations tibiofemoral Direction posterior glide Body Position Supine Reps/Duration 5 min Comments right knee flexed, foot on table PF Direction sup/inf Manual Techniques contract/relax to increase knee flex Body Location right knee Reps/Duration 6x Comments prone, sitting: patient in instructed in self-stretching contract/relax technique PT-OP-R Modalities Start: 10/26/18 19:01 Freq: Status: Active Protocol: Document 01/04/19 14:26 GGD (Rec: 01/04/19 14:32 GGD [email or web address]) Electric Stimulation Electric Stimulation Interferential Current (IFC) Body Location right knee Duration (Minutes) 15 Intensity 7 Target/Sweep Sweep High/Low High Patient Position Hooklying Combined With Heat/Cold Cold Pack PT-OP-T Assessment and Plan Start: 10/26/18 19:01 Freq: Status: Active Protocol: Document 01/04/19 14:26 GGD (Rec: 01/04/19 14:32 GGD [email or web address]) Physical Therapy Assessment Goals Four Impairment edema Short Term Goal (STG) Educate patient in edema management and redluction STG Duration goal met Project Controller Goal (LTG) Decrease edema right knee to minimal levels 12/15/18: goal progress, still some persistent edema limting progress LTG Duration 02/07/19 Three Impairment strength Short Term Goal (STG) Improve right knee strength to 3+/5 12/15/18: MET within available ROM STG Duration goal met Project Controller Goal (LTG) Improve right knee strength to at least 4+/5 to allow for safe and independent mobility in the home and community and return to taking walks LTG Duration 02/07/19 Two Impairment gait Short Term Goal (STG) Patient able to ambulate with appropriate assistive device without limp or compensation on level surfaces 12/15/18: goal met STG Duration MET Project Controller Goal (LTG) Patient able to walk on level surfaces and stairs without assitive device without limp or compensation 12/15/18: goal met on level surfaces but stairs painful, unable to descend with alternating pattern LTG Duration 02/07/19 One Impairment ROM Short Term Goal (STG) Improve right knee AROM to 5- 100 12/15/18: goal met STG Duration MET Project Controller Goal (LTG) Improve right knee AROM to 0- 120 LTG Duration 02/07/19 Assessment Summary Assessment Pt had difficulty with step down stairs with knee control. She need mod cues for technique with squats. She weak in hip abduction. Physical Therapy Plan Frequency and Duration Frequency of Treatment 2x/wk Duration of Treatment 12 wks Plan of Care Start Date 11/07/18 Plan of Care End Date 02/07/19 Next Visit Focus/Plan Next Note Type Treatment Note Next Visit Plan Progress ROM and strengthening , stair mobility.
--- NOTE | 2019-01-09 17:11 | PT.OTN ---
Current Diagnoses Unilateral primary osteoarthritis, right knee (01/09/19) Pain in right knee (01/09/19) Difficulty in walking, not elsewhere classified (01/09/19) Presence of right artificial knee joint (01/09/19) Physical Therapy Treatment Note PT-OP-A Visit Information Start: 10/26/18 19:01 Freq: Status: Active Protocol: Document 01/09/19 17:06 GGD (Rec: 01/09/19 17:11 GGD [email or web address]) Out-Patient Physical Therapy Visit Information Visit Information Visit Type Treatment Note Visit Start Time 16:00 Visit Stop Time 17:00 Total Visit Minutes 60 Visit Number 16 Number of QUALITY ASSURANCE MANAGER Visits 3 PT-OP-B Current Condition Start: 10/26/18 19:01 Freq: Status: Active Protocol: Document 11/07/18 09:02 SAK (Rec: 11/07/18 09:46 SAK [id number]) Current Condition History of Current Condition Onset Date right TKA 10/31/18 Current Complaints right knee pain, functional limitations History of Current Condition Right TKA 10/31/18 Future Testing and Treatments Planned Sees Dr. Faulkner 11/10/18 Treatment Goals Patient/Caregiver Goals be able to return to walking without pain after surgery Prior Functional Status Baseline Function- ADL's Independent Baseline Function- Mobility Independent Baseline Function- Gait Independent without device Baseline Function- Work/School Retired Baseline Function- Recreation/Hobbies Independent, active Baseline Function- Other she has two story house but does not have to do the stairs , can stay on main level Current Functional Impairments (Reported) Functional Limitations- ADL's painful, use of cane and walker Functional Limitations- Mobility/Gait Limited to short distances, uses cane or walker Functional Limitations- Recreation/ Unable at this time Hobbies Functional Limitations- Other difficult to sleep due to pain Personal Factors Other Personal Factors That May Effect history of left BRIAN Therapy/Recovery PT-OP-C Subjective Start: 10/26/18 19:01 Freq: Status: Active Protocol: Document 01/09/19 17:06 GGD (Rec: 01/09/19 17:11 GGD [email or web address]) OP-PT Subjective Patient Comments Patient Comments Pt states she may have over did it at home. She was sore after two days of home projects. Pt feels better today. PT-OP-G Mobility & Gait Start: 10/26/18 19:01 Freq: Status: Active Protocol: Document 10/26/18 16:00 DLM (Rec: 10/30/18 08:26 DLM [email or web address]) OP Mobility Evaluation Bed Mobility Rolling Independent Supine to and from Sit Independent Transfers Sit to Stand independent with UE's, educated pt on how to kick foot out like she will use after surgery to manage right knee pain after TKA Bed to Chair Transfers Independent Car Transfers educated pt to sit then turn when getting into car OP Gait Assessment Gait Gait Assistance Required: Independent Assistive Devices Assistive Device None Gait Deviations General Gait Pattern Antalgic Factors Limiting Gait Function Factors Limiting Gait Function Pain Stair Climbing Evaluation Evaluation Level of Assist On Stairs Independent Devices Stair Climbing Assistive Devices Left Railing Technique/Endurance Stair Climbing Direction Ascend and Descend Stair Climbing Technique Step Over Step Comments Stair Climbing Comments educated pt in using step-to pattern for right knee management after surgery PT-OP-J Posture/Palpation/Skin Start: 10/26/18 19:01 Freq: Status: Active Protocol: Document 11/07/18 09:02 [facility] (Rec: 11/08/18 08:36 [facility] [id number]) Palpation Assessment Location right knee Palpation Details mild increase in warmth Skin Assessment Edema Assessment right knee Edema Type Non-Pitting Edema Degree 2+ Edema Appearance Puffy Incisional Assessment Incision Appearance/Comments under post-op dressing. No signs or symptoms of infection surrounding area. PT-OP-K Range of Motion Start: 10/26/18 19:01 Freq: Status: Active Protocol: Document 11/07/18 09:02 [facility] (Rec: 11/08/18 08:40 [facility] [id number]) Knee Goniometric Range of Motion Knee Right Knee ROM WFL No Patient Position Supine Flexion Active (degrees) 82 Flexion Passive (degrees) 88 Extension Active (degrees) 22 Extension Passive (degrees) 12 Left Patient Position Sitting Flexion Active (degrees) 115 Extension Active (degrees) 0 PT-OP-M Strength Start: 10/26/18 19:01 Freq: Status: Active Protocol: Document 11/07/18 09:02 SAK (Rec: 11/07/18 09:46 [facility] [id number]) Hip Strength Hip Manual Muscle Testing Right Reason Not Measured Pain Knee Strength Knee Manual Muscle Testing Right Flexion (S2) 3- Fair- Extension (L3) 3- Fair- Comments s/p right TKA; no MMT, patient does not have full anti- gravity strength Ankle/Foot Strength Ankle and Foot Manual Muscle Testing Right Dorsiflexion (L4) 5 Normal Plantarflexion (S1) 5 Normal Left Dorsiflexion (L4) 5 Normal Plantarflexion (S1) 5 Normal PT-OP-Q Treatments Start: 10/26/18 19:01 Freq: Status: Active Protocol: Document 01/09/19 17:06 GGD (Rec: 01/09/19 17:11 GGD [email or web address]) Cardio Equipment Bicycle (Upright) Duration (Minutes) 10 Resistance 1 Seat Position 3 Gym Equipment Shuttle Recovery Unilateral Squats Resistance 50 luís Shuttle Recovery Platform Stable Reps/Time 2x10 Bilateral Squats Resistance 87 Shuttle Recovery Platform Stable Reps/Time 2 x 10 Therapeutic Exercises Supine Exercises gravity assisted knee flex Reps/Minutes 12x Comments manual assist Sidelying Exercises hip Abduction Sidelying Exercise Name hip abduction Side bilateral Reps/Minutes 10 clamshells Sidelying Exercise Name clamshells Side bilateral Reps/Minutes 15 Standing Exercises step down Standing Exercise Name step down Resistance 4 inch Reps/Minutes 10 Comments cues for knee control stair lunge Reps/Minutes 10x2 HC stretch Equipment Used AR Reps/Minutes 2x Manual Therapy Treatment Joint Mobilizations tibiofemoral Direction posterior glide Body Position Supine Reps/Duration 5 min Comments right knee flexed, foot on table PF Direction sup/inf Manual Techniques contract/relax to increase knee flex Body Location right knee Reps/Duration 6x Comments prone, sitting: patient in instructed in self-stretching contract/relax technique PT-OP-R Modalities Start: 10/26/18 19:01 Freq: Status: Active Protocol: Document 01/09/19 17:06 GGD (Rec: 01/09/19 17:11 GGD [email or web address]) Electric Stimulation Electric Stimulation Interferential Current (IFC) Body Location right knee Duration (Minutes) 15 Intensity 7 Target/Sweep Sweep High/Low High Patient Position Hooklying Combined With Heat/Cold Cold Pack PT-OP-T Assessment and Plan Start: 10/26/18 19:01 Freq: Status: Active Protocol: Document 01/09/19 17:06 GGD (Rec: 01/09/19 17:11 GGD [email or web address]) Physical Therapy Assessment Assessment Summary Assessment Pt improving with strengthening. She had decrease in AROM to 106 pre treatment that improved to 112 after treatment. Physical Therapy Plan Frequency and Duration Frequency of Treatment 2x/wk Duration of Treatment 12 wks Plan of Care Start Date 11/07/18 Plan of Care End Date 02/07/19 Next Visit Focus/Plan Next Note Type Treatment Note Next Visit Plan Progress ROM and strengthening , stair mobility.
--- NOTE | 2019-01-16 13:51 | PT.OTN ---
Current Diagnoses Unilateral primary osteoarthritis, right knee (01/16/19) Pain in right knee (01/16/19) Difficulty in walking, not elsewhere classified (01/16/19) Presence of right artificial knee joint (01/16/19) Physical Therapy Treatment Note PT-OP-A Visit Information Start: 10/26/18 19:01 Freq: Status: Active Protocol: Document 01/16/19 13:43 GGD (Rec: 01/16/19 13:50 GGD [email or web address]) Out-Patient Physical Therapy Visit Information Visit Information Visit Type Treatment Note Visit Start Time 11:15 Visit Stop Time 12:15 Total Visit Minutes 60 Visit Number 17 Number of BROKE BEATER Visits 4 Evaluation Information Evaluation Date 10/26/18 PT-OP-B Current Condition Start: 10/26/18 19:01 Freq: Status: Active Protocol: Document 11/07/18 09:02 SAK (Rec: 11/07/18 09:46 SAK [id number]) Current Condition History of Current Condition Onset Date right TKA 10/31/18 Current Complaints right knee pain, functional limitations History of Current Condition Right TKA 10/31/18 Future Testing and Treatments Planned Sees Dr. Faulkner 11/10/18 Treatment Goals Patient/Caregiver Goals be able to return to walking without pain after surgery Prior Functional Status Baseline Function- ADL's Independent Baseline Function- Mobility Independent Baseline Function- Gait Independent without device Baseline Function- Work/School Retired Baseline Function- Recreation/Hobbies Independent, active Baseline Function- Other she has two story house but does not have to do the stairs , can stay on main level Current Functional Impairments (Reported) Functional Limitations- ADL's painful, use of cane and walker Functional Limitations- Mobility/Gait Limited to short distances, uses cane or walker Functional Limitations- Recreation/ Unable at this time Hobbies Functional Limitations- Other difficult to sleep due to pain Personal Factors Other Personal Factors That May Effect history of left BRIAN Therapy/Recovery PT-OP-C Subjective Start: 10/26/18 19:01 Freq: Status: Active Protocol: Document 01/16/19 13:43 GGD (Rec: 01/16/19 13:50 GGD [email or web address]) OP-PT Subjective Patient Comments Patient Comments Pt states she feeling better less pain with stairs. PT-OP-G Mobility & Gait Start: 10/26/18 19:01 Freq: Status: Active Protocol: Document 10/26/18 16:00 DLM (Rec: 10/30/18 08:26 DLM [email or web address]) OP Mobility Evaluation Bed Mobility Rolling Independent Supine to and from Sit Independent Transfers Sit to Stand independent with UE's, educated pt on how to kick foot out like she will use after surgery to manage right knee pain after TKA Bed to Chair Transfers Independent Car Transfers educated pt to sit then turn when getting into car OP Gait Assessment Gait Gait Assistance Required: Independent Assistive Devices Assistive Device None Gait Deviations General Gait Pattern Antalgic Factors Limiting Gait Function Factors Limiting Gait Function Pain Stair Climbing Evaluation Evaluation Level of Assist On Stairs Independent Devices Stair Climbing Assistive Devices Left Railing Technique/Endurance Stair Climbing Direction Ascend and Descend Stair Climbing Technique Step Over Step Comments Stair Climbing Comments educated pt in using step-to pattern for right knee management after surgery PT-OP-J Posture/Palpation/Skin Start: 10/26/18 19:01 Freq: Status: Active Protocol: Document 11/07/18 09:02 [facility] (Rec: 11/08/18 08:36 [facility] [id number]) Palpation Assessment Location right knee Palpation Details mild increase in warmth Skin Assessment Edema Assessment right knee Edema Type Non-Pitting Edema Degree 2+ Edema Appearance Puffy Incisional Assessment Incision Appearance/Comments under post-op dressing. No signs or symptoms of infection surrounding area. PT-OP-K Range of Motion Start: 10/26/18 19:01 Freq: Status: Active Protocol: Document 11/07/18 09:02 [facility] (Rec: 11/08/18 08:40 [facility] [id number]) Knee Goniometric Range of Motion Knee Right Knee ROM WFL No Patient Position Supine Flexion Active (degrees) 82 Flexion Passive (degrees) 88 Extension Active (degrees) 22 Extension Passive (degrees) 12 Left Patient Position Sitting Flexion Active (degrees) 115 Extension Active (degrees) 0 PT-OP-M Strength Start: 10/26/18 19:01 Freq: Status: Active Protocol: Document 11/07/18 09:02 [facility] (Rec: 11/07/18 09:46 [facility] [id number]) Hip Strength Hip Manual Muscle Testing Right Reason Not Measured Pain Knee Strength Knee Manual Muscle Testing Right Flexion (S2) 3- Fair- Extension (L3) 3- Fair- Comments s/p right TKA; no MMT, patient does not have full anti- gravity strength Ankle/Foot Strength Ankle and Foot Manual Muscle Testing Right Dorsiflexion (L4) 5 Normal Plantarflexion (S1) 5 Normal Left Dorsiflexion (L4) 5 Normal Plantarflexion (S1) 5 Normal PT-OP-Q Treatments Start: 10/26/18 19:01 Freq: Status: Active Protocol: Document 01/16/19 13:43 GGD (Rec: 01/16/19 13:50 GGD [email or web address]) Cardio Equipment Bicycle (Upright) Duration (Minutes) 10 Resistance 1 Seat Position 3 Gym Equipment Shuttle Recovery Unilateral Squats Resistance 50 luís Shuttle Recovery Platform Stable Reps/Time 2x10 Bilateral Squats Resistance 100 Shuttle Recovery Platform Stable Reps/Time 2 x 10 Therapeutic Exercises Sidelying Exercises hip Abduction Sidelying Exercise Name hip abduction Side bilateral Reps/Minutes 10 clamshells Sidelying Exercise Name clamshells Side bilateral Reps/Minutes 15 Standing Exercises step down Standing Exercise Name step down Resistance 4 inch Reps/Minutes 10 Comments cues for knee control stair lunge Reps/Minutes 10x2 HC stretch Equipment Used AR Reps/Minutes 2x Manual Therapy Treatment Joint Mobilizations tibiofemoral Direction posterior glide Body Position Supine Reps/Duration 5 min Comments right knee flexed, foot on table PF Direction sup/inf PT-OP-R Modalities Start: 10/26/18 19:01 Freq: Status: Active Protocol: Document 01/16/19 13:43 GGD (Rec: 01/16/19 13:50 GGD [email or web address]) Electric Stimulation Electric Stimulation Interferential Current (IFC) Body Location right knee Duration (Minutes) 15 Intensity 7 Target/Sweep Sweep High/Low High Patient Position Hooklying Combined With Heat/Cold Cold Pack PT-OP-T Assessment and Plan Start: 10/26/18 19:01 Freq: Status: Active Protocol: Document 01/16/19 13:43 GGD (Rec: 01/16/19 13:50 GGD [email or web address]) Physical Therapy Assessment Goals Four Impairment edema Short Term Goal (STG) Educate patient in edema management and redluction STG Duration goal met Latrine Cleaner Goal (LTG) Decrease edema right knee to minimal levels 12/15/18: goal progress, still some persistent edema limting progress LTG Duration 02/07/19 Three Impairment strength Short Term Goal (STG) Improve right knee strength to 3+/5 12/15/18: MET within available ROM STG Duration goal met Mcfp Goal (LTG) Improve right knee strength to at least 4+/5 to allow for safe and independent mobility in the home and community and return to taking walks LTG Duration 02/07/19 Two Impairment gait Short Term Goal (STG) Patient able to ambulate with appropriate assistive device without limp or compensation on level surfaces 12/15/18: goal met STG Duration MET Mcfp Goal (LTG) Patient able to walk on level surfaces and stairs without assitive device without limp or compensation 12/15/18: goal met on level surfaces but stairs painful, unable to descend with alternating pattern LTG Duration 02/07/19 One Impairment ROM Short Term Goal (STG) Improve right knee AROM to 5- 100 12/15/18: goal met STG Duration MET Mcfp Goal (LTG) Improve right knee AROM to 0- 120 LTG Duration 02/07/19 Assessment Summary Assessment Pt improving with strength and ROM. She needed less cues for step down technique. Physical Therapy Plan Frequency and Duration Frequency of Treatment 2x/wk Duration of Treatment 12 wks Plan of Care Start Date 11/07/18 Plan of Care End Date 02/07/19 Next Visit Focus/Plan Next Note Type Treatment Note Next Visit Plan Progress strengthening, stair mobility.
--- NOTE | 2019-01-23 17:17 | PT.OTN ---
Current Diagnoses Unilateral primary osteoarthritis, right knee (01/23/19) Pain in right knee (01/23/19) Difficulty in walking, not elsewhere classified (01/23/19) Presence of right artificial knee joint (01/23/19) Physical Therapy Treatment Note PT-OP-A Visit Information Start: 10/26/18 19:01 Freq: Status: Active Protocol: Document 01/23/19 17:08 GGD (Rec: 01/23/19 17:17 GGD [email or web address]) Out-Patient Physical Therapy Visit Information Visit Information Visit Type Treatment Note Visit Start Time 11:15 Visit Stop Time 12:00 Total Visit Minutes 45 Visit Number 18 Number of FILL PLANT OPERATOR Visits 5 PT-OP-B Current Condition Start: 10/26/18 19:01 Freq: Status: Active Protocol: Document 11/07/18 09:02 SAK (Rec: 11/07/18 09:46 SAK [id number]) Current Condition History of Current Condition Onset Date right TKA 10/31/18 Current Complaints right knee pain, functional limitations History of Current Condition Right TKA 10/31/18 Future Testing and Treatments Planned Sees Dr. Faulkner 11/10/18 Treatment Goals Patient/Caregiver Goals be able to return to walking without pain after surgery Prior Functional Status Baseline Function- ADL's Independent Baseline Function- Mobility Independent Baseline Function- Gait Independent without device Baseline Function- Work/School Retired Baseline Function- Recreation/Hobbies Independent, active Baseline Function- Other she has two story house but does not have to do the stairs , can stay on main level Current Functional Impairments (Reported) Functional Limitations- ADL's painful, use of cane and walker Functional Limitations- Mobility/Gait Limited to short distances, uses cane or walker Functional Limitations- Recreation/ Unable at this time Hobbies Functional Limitations- Other difficult to sleep due to pain Personal Factors Other Personal Factors That May Effect history of left BRIAN Therapy/Recovery PT-OP-C Subjective Start: 10/26/18 19:01 Freq: Status: Active Protocol: Document 01/23/19 17:08 GGD (Rec: 01/23/19 17:17 GGD [email or web address]) OP-PT Subjective Patient Comments Patient Comments Pt states she having less pain with knee flexion stretch, but some still with stairs. PT-OP-G Mobility & Gait Start: 10/26/18 19:01 Freq: Status: Active Protocol: Document 10/26/18 16:00 DLM (Rec: 10/30/18 08:26 DLM [email or web address]) OP Mobility Evaluation Bed Mobility Rolling Independent Supine to and from Sit Independent Transfers Sit to Stand independent with UE's, educated pt on how to kick foot out like she will use after surgery to manage right knee pain after TKA Bed to Chair Transfers Independent Car Transfers educated pt to sit then turn when getting into car OP Gait Assessment Gait Gait Assistance Required: Independent Assistive Devices Assistive Device None Gait Deviations General Gait Pattern Antalgic Factors Limiting Gait Function Factors Limiting Gait Function Pain Stair Climbing Evaluation Evaluation Level of Assist On Stairs Independent Devices Stair Climbing Assistive Devices Left Railing Technique/Endurance Stair Climbing Direction Ascend and Descend Stair Climbing Technique Step Over Step Comments Stair Climbing Comments educated pt in using step-to pattern for right knee management after surgery PT-OP-J Posture/Palpation/Skin Start: 10/26/18 19:01 Freq: Status: Active Protocol: Document 11/07/18 09:02 [facility] (Rec: 11/08/18 08:36 [facility] [id number]) Palpation Assessment Location right knee Palpation Details mild increase in warmth Skin Assessment Edema Assessment right knee Edema Type Non-Pitting Edema Degree 2+ Edema Appearance Puffy Incisional Assessment Incision Appearance/Comments under post-op dressing. No signs or symptoms of infection surrounding area. PT-OP-K Range of Motion Start: 10/26/18 19:01 Freq: Status: Active Protocol: Document 11/07/18 09:02 [facility] (Rec: 11/08/18 08:40 [facility] [id number]) Knee Goniometric Range of Motion Knee Right Knee ROM WFL No Patient Position Supine Flexion Active (degrees) 82 Flexion Passive (degrees) 88 Extension Active (degrees) 22 Extension Passive (degrees) 12 Left Patient Position Sitting Flexion Active (degrees) 115 Extension Active (degrees) 0 PT-OP-M Strength Start: 10/26/18 19:01 Freq: Status: Active Protocol: Document 11/07/18 09:02 [facility] (Rec: 11/07/18 09:46 [facility] [id number]) Hip Strength Hip Manual Muscle Testing Right Reason Not Measured Pain Knee Strength Knee Manual Muscle Testing Right Flexion (S2) 3- Fair- Extension (L3) 3- Fair- Comments s/p right TKA; no MMT, patient does not have full anti- gravity strength Ankle/Foot Strength Ankle and Foot Manual Muscle Testing Right Dorsiflexion (L4) 5 Normal Plantarflexion (S1) 5 Normal Left Dorsiflexion (L4) 5 Normal Plantarflexion (S1) 5 Normal PT-OP-Q Treatments Start: 10/26/18 19:01 Freq: Status: Active Protocol: Document 01/23/19 17:08 GGD (Rec: 01/23/19 17:17 GGD [email or web address]) Cardio Equipment Bicycle (Upright) Duration (Minutes) 10 Resistance 1 Seat Position 3 Gym Equipment Shuttle Recovery Unilateral Squats Resistance 50 luís Shuttle Recovery Platform Stable Reps/Time 2x10 Bilateral Squats Resistance 100 Shuttle Recovery Platform Stable Reps/Time 2 x 10 Therapeutic Exercises Standing Exercises step down Standing Exercise Name step down Resistance 4 inch Reps/Minutes 10 Comments cues for knee control stair lunge Reps/Minutes 10x2 HC stretch Equipment Used AR Reps/Minutes 2x Manual Therapy Treatment Joint Mobilizations tibiofemoral Direction posterior glide Body Position Supine Reps/Duration 5 min Comments right knee flexed, foot on table PF Direction sup/inf PT-OP-T Assessment and Plan Start: 10/26/18 19:01 Freq: Status: Active Protocol: Document 01/23/19 17:08 GGD (Rec: 01/23/19 17:17 GGD [email or web address]) Physical Therapy Assessment Assessment Summary Assessment Pt improving with ROM knee flexion to 116. She still having pain and needs cues for step down technique. Physical Therapy Plan Frequency and Duration Frequency of Treatment 2x/wk Duration of Treatment 12 wks Plan of Care Start Date 11/07/18 Plan of Care End Date 02/07/19 Next Visit Focus/Plan Next Note Type Treatment Note Next Visit Plan Progress strengthening, stair mobility, lunges
--- NOTE | 2019-02-06 16:00 | PT.OTRE ---
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) Pneumonia (Acute) Retinal detachment, right (Acute ~11/2016) Shoulder pain (Chronic ~2015) Sleep apnea (Acute) Surgical History (Last Updated 10/19/18 @ 10:19 by Jo Ann Zelaya RN) Anesthesia (Resolved) H/O: hysterectomy (Acute) History of cataract removal with insertion of prosthetic lens History of colonoscopy (Acute) History of lumpectomy (~07/2015) History of total hip arthroplasty (Resolved 12/2014) Hx of lymph node excision (Acute) Hx of tonsillectomy (Resolved Unknown) Status post surgery (08/30/16) Visit Care Team Role Provider Type Jyothi Monzon PA-C Primary Care Provider [employer] Chemist Specialty: Medical Address: [address] [place] [address], [address], [address] Email: [email or web address] Susan Faulkner MD Attending Provider Physician Specialty: Orthopedic Surgery Address: [address] [place] [address], [id number] Email: [email or web address] Physical Therapy Re-Evaluation PT-OP-A Visit Information Start: 10/26/18 19:01 Freq: Status: Active Protocol: Document 02/06/19 16:52 GGD (Rec: 02/06/19 17:04 [email or web address]) Out-Patient Physical Therapy Visit Information Visit Information Visit Type Treatment Note Visit Start Time 12:00 Visit Stop Time 12:45 Total Visit Minutes 45 Visit Number 19 Number of EXERCISE PLANNER Visits 6 PT-OP-B Current Condition Start: 10/26/18 19:01 Freq: Status: Active Protocol: Document 11/07/18 09:02 SAK (Rec: 11/07/18 09:46 SAK [id number]) Current Condition History of Current Condition Onset Date right TKA 10/31/18 Current Complaints right knee pain, functional limitations History of Current Condition Right TKA 10/31/18 Future Testing and Treatments Planned Sees Dr. Faulkner 11/10/18 Treatment Goals Patient/Caregiver Goals be able to return to walking without pain after surgery Prior Functional Status Baseline Function- ADL's Independent Baseline Function- Mobility Independent Baseline Function- Gait Independent without device Baseline Function- Work/School Retired Baseline Function- Recreation/Hobbies Independent, active Baseline Function- Other she has two story house but does not have to do the stairs , can stay on main level Current Functional Impairments (Reported) Functional Limitations- ADL's painful, use of cane and walker Functional Limitations- Mobility/Gait Limited to short distances, uses cane or walker Functional Limitations- Recreation/ Unable at this time Hobbies Functional Limitations- Other difficult to sleep due to pain Personal Factors Other Personal Factors That May Effect history of left BRIAN Therapy/Recovery PT-OP-C Subjective Start: 10/26/18 19:01 Freq: Status: Active Protocol: Document 02/06/19 16:52 GGD (Rec: 02/06/19 17:04 GGD [email or web address]) OP-PT Subjective Patient Comments Patient Comments Pt states knee feeling better. She able to walk the dog farther than before surgery. PT-OP-G Mobility & Gait Start: 10/26/18 19:01 Freq: Status: Active Protocol: Document 10/26/18 16:00 DLM (Rec: 10/30/18 08:26 DLM [email or web address]) OP Mobility Evaluation Bed Mobility Rolling Independent Supine to and from Sit Independent Transfers Sit to Stand independent with UE's, educated pt on how to kick foot out like she will use after surgery to manage right knee pain after TKA Bed to Chair Transfers Independent Car Transfers educated pt to sit then turn when getting into car OP Gait Assessment Gait Gait Assistance Required: Independent Assistive Devices Assistive Device None Gait Deviations General Gait Pattern Antalgic Factors Limiting Gait Function Factors Limiting Gait Function Pain Stair Climbing Evaluation Evaluation Level of Assist On Stairs Independent Devices Stair Climbing Assistive Devices Left Railing Technique/Endurance Stair Climbing Direction Ascend and Descend Stair Climbing Technique Step Over Step Comments Stair Climbing Comments educated pt in using step-to pattern for right knee management after surgery PT-OP-J Posture/Palpation/Skin Start: 10/26/18 19:01 Freq: Status: Active Protocol: Document 11/07/18 09:02 SAK (Rec: 11/08/18 08:36 SAK [id number]) Palpation Assessment Location right knee Palpation Details mild increase in warmth Skin Assessment Edema Assessment right knee Edema Type Non-Pitting Edema Degree 2+ Edema Appearance Puffy Incisional Assessment Incision Appearance/Comments under post-op dressing. No signs or symptoms of infection surrounding area. PT-OP-K Range of Motion Start: 10/26/18 19:01 Freq: Status: Active Protocol: Document 02/06/19 16:52 GGD (Rec: 02/06/19 17:04 GGD [email or web address]) Knee Goniometric Range of Motion Knee Measured in Degrees Right Patient Position Supine Flexion Active (degrees) 119 Extension Active (degrees) 0 PT-OP-M Strength Start: 10/26/18 19:01 Freq: Status: Active Protocol: Document 02/06/19 16:52 GGD (Rec: 02/06/19 17:04 GGD [email or web address]) Knee Strength Knee Manual Muscle Testing Right Flexion (S2) 4+ Good+ Extension (L3) 5 Normal PT-OP-Q Treatments Start: 10/26/18 19:01 Freq: Status: Active Protocol: Document 02/06/19 16:52 GGD (Rec: 02/06/19 17:04 GGD [email or web address]) Cardio Equipment Bicycle (Upright) Duration (Minutes) 10 Resistance 1 Seat Position 3 Gym Equipment Shuttle Recovery Unilateral Squats Resistance 50 luís Shuttle Recovery Platform Stable Reps/Time 2x10 Bilateral Squats Resistance 100 Shuttle Recovery Platform Stable Reps/Time 2 x 10 Therapeutic Exercises Standing Exercises hip hike Standing Exercise Name hip hike Side bilateral Equipment Used 20 side step Standing Exercise Name side step Side bilateral Resistance yellow Reps/Minutes 4 x 20 feet sit to stand Standing Exercise Name sit to stand with right leg forward Reps/Minutes 10 step down Standing Exercise Name step down Resistance 4 inch Reps/Minutes 10 Comments cues for knee control Manual Therapy Treatment Joint Mobilizations tibiofemoral Direction posterior glide Body Position Supine Reps/Duration 5 min Comments right knee flexed, foot on table Taping right knee Treatment Focus patella control Type of Tape Kinesio Tape Skin Inspection intact, incision well-healed Comments Y strips inferior to superior, I strip medial to lat. PT-OP-R Modalities Start: 10/26/18 19:01 Freq: Status: Active Protocol: Document 01/16/19 13:43 GGD (Rec: 01/16/19 13:50 GGD [email or web address]) Electric Stimulation Electric Stimulation Interferential Current (IFC) Body Location right knee Duration (Minutes) 15 Intensity 7 Target/Sweep Sweep High/Low High Patient Position Hooklying Combined With Heat/Cold Cold Pack PT-OP-T Assessment and Plan Start: 10/26/18 19:01 Freq: Status: Active Protocol: Document 02/06/19 16:52 GGD (Rec: 02/06/19 17:04 GGD [email or web address]) Physical Therapy Assessment Goals Four Impairment edema Short Term Goal (STG) Educate patient in edema management and redluction STG Duration goal met Senior Living Goal (LTG) Decrease edema right knee to minimal levels 12/15/18: goal progress, still some persistent edema limting progress 02/06/19: making progress, but some limited edema LTG Duration 02/07/19 Three Impairment strength Short Term Goal (STG) Improve right knee strength to 3+/5 12/15/18: MET within available ROM STG Duration goal met Senior Living Goal (LTG) Improve right knee strength to at least 4+/5 to allow for safe and independent mobility in the home and community and return to taking walks 02/06/19: goal met LTG Duration goal met Two Impairment gait Short Term Goal (STG) Patient able to ambulate with appropriate assistive device without limp or compensation on level surfaces 12/15/18: goal met STG Duration MET Yarn Wrapper Goal (LTG) Patient able to walk on level surfaces and stairs without assitive device without limp or compensation 12/15/18: goal met on level surfaces but stairs painful, unable to descend with alternating pattern 02/06/19: Making progress, pain with stair mobility. LTG Duration 02/07/19 One Impairment ROM Short Term Goal (STG) Improve right knee AROM to 5- 100 12/15/18: goal met STG Duration MET Yarn Wrapper Goal (LTG) Improve right knee AROM to 0- 120 02/06/19: nearing goal met with ROM 0-119 LTG Duration 02/07/19 Assessment Summary Assessment Pt is improving with ROM and strength. She continues to have pain with descending stairs. She improving with knee control with stair mobility. Physical Therapy Plan Frequency and Duration Frequency of Treatment 1x/Week Duration of Treatment 8 Plan of Care Start Date 02/06/19 Plan of Care End Date 04/07/19 Next Visit Focus/Plan Next Note Type Treatment Note Next Visit Plan Progress strengthening, stair mobility, lunges
--- NOTE | 2019-02-06 17:04 | PT.OTN ---
Current Diagnoses Unilateral primary osteoarthritis, right knee (02/06/19) Pain in right knee (02/06/19) Difficulty in walking, not elsewhere classified (02/06/19) Presence of right artificial knee joint (02/06/19) Physical Therapy Treatment Note PT-OP-A Visit Information Start: 10/26/18 19:01 Freq: Status: Active Protocol: Document 02/06/19 16:52 GGD (Rec: 02/06/19 17:04 GGD [email or web address]) Out-Patient Physical Therapy Visit Information Visit Information Visit Type Treatment Note Visit Start Time 12:00 Visit Stop Time 12:45 Total Visit Minutes 45 Visit Number 19 Number of ENDOSCOPY REGISTERED NURSE Visits 6 PT-OP-B Current Condition Start: 10/26/18 19:01 Freq: Status: Active Protocol: Document 11/07/18 09:02 SAK (Rec: 11/07/18 09:46 SAK [id number]) Current Condition History of Current Condition Onset Date right TKA 10/31/18 Current Complaints right knee pain, functional limitations History of Current Condition Right TKA 10/31/18 Future Testing and Treatments Planned Sees Dr. Faulkner 11/10/18 Treatment Goals Patient/Caregiver Goals be able to return to walking without pain after surgery Prior Functional Status Baseline Function- ADL's Independent Baseline Function- Mobility Independent Baseline Function- Gait Independent without device Baseline Function- Work/School Retired Baseline Function- Recreation/Hobbies Independent, active Baseline Function- Other she has two story house but does not have to do the stairs , can stay on main level Current Functional Impairments (Reported) Functional Limitations- ADL's painful, use of cane and walker Functional Limitations- Mobility/Gait Limited to short distances, uses cane or walker Functional Limitations- Recreation/ Unable at this time Hobbies Functional Limitations- Other difficult to sleep due to pain Personal Factors Other Personal Factors That May Effect history of left BRIAN Therapy/Recovery PT-OP-C Subjective Start: 10/26/18 19:01 Freq: Status: Active Protocol: Document 02/06/19 16:52 GGD (Rec: 02/06/19 17:04 GGD [email or web address]) OP-PT Subjective Patient Comments Patient Comments Pt states knee feeling better. She able to walk the dog farther than before surgery. PT-OP-G Mobility & Gait Start: 10/26/18 19:01 Freq: Status: Active Protocol: Document 10/26/18 16:00 DLM (Rec: 10/30/18 08:26 DLM [email or web address]) OP Mobility Evaluation Bed Mobility Rolling Independent Supine to and from Sit Independent Transfers Sit to Stand independent with UE's, educated pt on how to kick foot out like she will use after surgery to manage right knee pain after TKA Bed to Chair Transfers Independent Car Transfers educated pt to sit then turn when getting into car OP Gait Assessment Gait Gait Assistance Required: Independent Assistive Devices Assistive Device None Gait Deviations General Gait Pattern Antalgic Factors Limiting Gait Function Factors Limiting Gait Function Pain Stair Climbing Evaluation Evaluation Level of Assist On Stairs Independent Devices Stair Climbing Assistive Devices Left Railing Technique/Endurance Stair Climbing Direction Ascend and Descend Stair Climbing Technique Step Over Step Comments Stair Climbing Comments educated pt in using step-to pattern for right knee management after surgery PT-OP-J Posture/Palpation/Skin Start: 10/26/18 19:01 Freq: Status: Active Protocol: Document 11/07/18 09:02 SAK (Rec: 11/08/18 08:36 SAK [id number]) Palpation Assessment Location right knee Palpation Details mild increase in warmth Skin Assessment Edema Assessment right knee Edema Type Non-Pitting Edema Degree 2+ Edema Appearance Puffy Incisional Assessment Incision Appearance/Comments under post-op dressing. No signs or symptoms of infection surrounding area. PT-OP-K Range of Motion Start: 10/26/18 19:01 Freq: Status: Active Protocol: Document 02/06/19 16:52 GGD (Rec: 02/06/19 17:04 GGD [email or web address]) Knee Goniometric Range of Motion Knee Right Patient Position Supine Flexion Active (degrees) 119 Extension Active (degrees) 0 PT-OP-M Strength Start: 10/26/18 19:01 Freq: Status: Active Protocol: Document 02/06/19 16:52 GGD (Rec: 02/06/19 17:04 GGD [email or web address]) Knee Strength Knee Manual Muscle Testing Right Flexion (S2) 4+ Good+ Extension (L3) 5 Normal PT-OP-Q Treatments Start: 10/26/18 19:01 Freq: Status: Active Protocol: Document 02/06/19 16:52 GGD (Rec: 02/06/19 17:04 GGD [email or web address]) Cardio Equipment Bicycle (Upright) Duration (Minutes) 10 Resistance 1 Seat Position 3 Gym Equipment Shuttle Recovery Unilateral Squats Resistance 50 luís Shuttle Recovery Platform Stable Reps/Time 2x10 Bilateral Squats Resistance 100 Shuttle Recovery Platform Stable Reps/Time 2 x 10 Therapeutic Exercises Standing Exercises hip hike Standing Exercise Name hip hike Side bilateral Equipment Used 20 side step Standing Exercise Name side step Side bilateral Resistance yellow Reps/Minutes 4 x 20 feet sit to stand Standing Exercise Name sit to stand with right leg forward Reps/Minutes 10 step down Standing Exercise Name step down Resistance 4 inch Reps/Minutes 10 Comments cues for knee control Manual Therapy Treatment Joint Mobilizations tibiofemoral Direction posterior glide Body Position Supine Reps/Duration 5 min Comments right knee flexed, foot on table Taping right knee Treatment Focus patella control Type of Tape Kinesio Tape Skin Inspection intact, incision well-healed Comments Y strips inferior to superior, I strip medial to lat. PT-OP-R Modalities Start: 10/26/18 19:01 Freq: Status: Active Protocol: Document 01/16/19 13:43 GGD (Rec: 01/16/19 13:50 GGD [email or web address]) Electric Stimulation Electric Stimulation Interferential Current (IFC) Body Location right knee Duration (Minutes) 15 Intensity 7 Target/Sweep Sweep High/Low High Patient Position Hooklying Combined With Heat/Cold Cold Pack PT-OP-T Assessment and Plan Start: 10/26/18 19:01 Freq: Status: Active Protocol: Document 02/06/19 16:52 GGD (Rec: 02/06/19 17:04 GGD [email or web address]) Physical Therapy Assessment Goals Four Impairment edema Short Term Goal (STG) Educate patient in edema management and redluction STG Duration goal met Grader Green Meat Goal (LTG) Decrease edema right knee to minimal levels 12/15/18: goal progress, still some persistent edema limting progress 02/06/19: making progress, but some limited edema LTG Duration 02/07/19 Three Impairment strength Short Term Goal (STG) Improve right knee strength to 3+/5 12/15/18: MET within available ROM STG Duration goal met Gr[employer] Goal (LTG) Improve right knee strength to at least 4+/5 to allow for safe and independent mobility in the home and community and return to taking walks 02/06/19: goal met LTG Duration goal met Two Impairment gait Short Term Goal (STG) Patient able to ambulate with appropriate assistive device without limp or compensation on level surfaces 12/15/18: goal met STG Duration MET Grader [employer] Goal (LTG) Patient able to walk on level surfaces and stairs without assitive device without limp or compensation 12/15/18: goal met on level surfaces but stairs painful, unable to descend with alternating pattern 02/06/19: Making progress, pain with stair mobility. LTG Duration 02/07/19 One Impairment ROM Short Term Goal (STG) Improve right knee AROM to 5- 100 12/15/18: goal met STG Duration MET Assisted Goal (LTG) Improve right knee AROM to 0- 120 02/06/19: nearing goal met with ROM 0-119 LTG Duration 02/07/19 Assessment Summary Assessment Pt is improving with ROM and strength. She continues to have pain with descending stairs. She improving with knee control with stair mobility. Physical Therapy Plan Frequency and Duration Frequency of Treatment 1x/Week Duration of Treatment 8 Plan of Care Start Date 02/06/19 Plan of Care End Date 04/07/19 Next Visit Focus/Plan Next Note Type Treatment Note Next Visit Plan Progress strengthening, stair mobility, lunges
== END 2019-02-07 12:43 ==
LOC: PHYS 12:00
PROVIDERS: PCP Physician Assistant; Visit Provider Orthopaedic Surgery
DX: M17.11 Unilateral primary osteoarthritis, right knee (principal); M25.561 Pain in right knee; R26.2 Difficulty in walking, not elsewhere classified; Z96.651 Presence of right artificial knee joint
CPT/HCPCS: 97010; 97014; 97110; 97140; 97162; 97164; G0283

== ENCOUNTER → 2019-06-11 07:52 | Outpatient (CLI) | payer MEDICARE, BC, SELFPAY ==
[2018-10-31 18:02] VITALS: BMI 28.8
[2019-06-11 08:41] LABS: Alanine Aminotransferase 20 IU/L (<35); Albumin 4.3 g/dL (3.5-5.0); Albumin Globulin Ratio 1.2 (1.0-2.8); Alkaline Phosphatase 58 U/L (38-126); Aspartate Aminotransferase 29 IU/L (14-36); BUN Creatinine Ratio 28.3 (6-22); Bilirubin Total 0.7 mg/dL (0.2-1.3); Blood Urea Nitrogen 17 mg/dL (7-17); Calcium 9.4 mg/dL (8.4-10.2); Carbon Dioxide 27 mmol/L (22-32); Chloride 100 mmol/L (98-107); Cholesterol 171 mg/dL (140-199); Estimated Glomerular Filt Rate > 60.0 mL/min (>60); Globulin 3.5 g/dL (1.7-4.1); Glucose 100 mg/dL (80-110); HDL Cholesterol 57 mg/dL (40-60); HEMOLYSIS < 15 (0-50); LDL Cholesterol Calculated 76 mg/dL (<100); Potassium 3.9 mmol/L (3.4-5.1); Sodium 137 mmol/L (137-145); Total Protein 7.8 g/dL (6.3-8.2); Triglycerides 192 mg/dL (35-150)
[2019-06-11 10:00] LABS: Creatinine Urine Random 102.1 mg/dL
[2019-06-11 10:08] LABS: Microalbumi Creatinin Ratio Ur 5.8 ug/mg CR (<30); Microalbumin Urine Random < 0.6 mg/dL (0-1.6)
== END ==
PROVIDERS: PCP Physician Assistant; Referring Provider Physician Assistant; Visit Provider Physician Assistant
DX: E78.5 Hyperlipidemia, unspecified (principal); I10 Essential (primary) hypertension
CPT/HCPCS: 36415; 80053; 80061; 82043; 82570

== ENCOUNTER → 2019-07-02 10:05 | Outpatient (CLI) | payer MEDICARE, BC, SELFPAY ==
[2018-10-31 18:02] VITALS: BMI 28.8
--- NOTE | 2019-07-02 | DI.MG.S_ITS ---
BILATERAL DIGITAL SCREENING MAMMOGRAM 3D/2D WITH CAD POST LUMPECTOMY: 07/02/2019 CLINICAL: Routine screening. Personal history of left breast cancer. Family history of breast cancer. Comparison is made to exams dated: 07/14/2018 mammogram, 06/30/2018 mammogram, 06/29/2017 mammogram, and 06/28/2016 mammogram - [facility]. The tissue of both breasts is heterogeneously dense. This may lower the sensitivity of mammography. Current study was also evaluated with a Computer Aided Detection (CAD) system. There are benign calcifications in the left breast. There also are benign post operative findings in the left breast. No significant masses, calcifications, or other findings are seen in either breast. There has been no significant interval change. IMPRESSION: There is no mammographic evidence of malignancy. A 1 year screening mammogram is recommended. This exam was interpreted at Station ID: [id number]. NOTE: For mammograms, a report in lay terms will be sent to the patient. Approximately 15% of breast malignancies will not be visualized mammographically. In the management of a palpable breast mass, a negative mammogram must not discourage biopsy of a clinically suspicious lesion. Electronically Signed By: Tracy mcdermott/raheel:07/02/2019 21:55:38 copy to: KAMILA HENDRIX letter sent: Normal Exam ACR BI-RADS Category 2: Benign Finding(s) 3342F
== END ==
PROVIDERS: PCP Physician Assistant; Referring Provider Physician Assistant; Visit Provider Physician Assistant
DX: Z12.31 Encounter for screening mammogram for malignant neoplasm of breast (principal); Z85.3 Personal history of malignant neoplasm of breast; Z80.3 Family history of malignant neoplasm of breast; Z78.0 Asymptomatic menopausal state; E28.39 Other primary ovarian failure; R29.890 Loss of height; Z96.642 Presence of left artificial hip joint
CPT/HCPCS: 77063; 77067; 77080

== ENCOUNTER → 2019-07-09 07:44 | Outpatient (CLI) | payer MEDICARE, BC, SELFPAY ==
[2018-10-31 18:02] VITALS: BMI 28.8
[2019-07-09 07:58] LABS: Add Manual Diff / Slide Review NO; Basophils Absolute Auto 100 /uL (0-100); Basophils Percent Auto 0.9 % (0-2); Eosinophils Absolute Auto 100 /uL (0-450); Hematocrit 40.2 % (36-46); Hemoglobin 13.8 g/dL (12.0-16.0); Lymphocytes Absolute Auto 1600 /uL (1100-4500); Lymphocytes Percent Auto 24.7 % (25-40); Mean Corpuscular HGB Conc 34.4 % (30-36); Mean Corpuscular Hemoglobin 33.1 PG (26-34); Mean Corpuscular Volume 96.4 fL (80-100); Monocytes Absolute Auto 600 /uL (0-900); Monocytes Percent Auto 9.3 % (3-14); Neutrophils Absolute Auto 4000 /uL (1500-7000); Neutrophils Percent Auto 63.1 % (50-75); Platelet Count 231 X10^3/uL (150-400); Red Blood Cell Count 4.17 X10^6/uL (4.0-5.2); Red Cell Distribution Width 12.9 % (11.6-14.8); White Blood Cell Count 6.3 X10^3/uL (4.5-11.0)
[2019-07-09 08:21] LABS: Alanine Aminotransferase 22 IU/L (<35); Albumin 4.4 g/dL (3.5-5.0); Albumin Globulin Ratio 1.3 (1.0-2.8); Alkaline Phosphatase 51 U/L (38-126); Aspartate Aminotransferase 28 IU/L (14-36); BUN Creatinine Ratio 21.4 (6-22); Bilirubin Total 0.6 mg/dL (0.2-1.3); Blood Urea Nitrogen 15 mg/dL (7-17); Calcium 9.9 mg/dL (8.4-10.2); Carbon Dioxide 28 mmol/L (22-32); Chloride 101 mmol/L (98-107); Estimated Glomerular Filt Rate > 60.0 mL/min (>60); Globulin 3.4 g/dL (1.7-4.1); Glucose 95 mg/dL (80-110); HEMOLYSIS < 15 (0-50); Potassium 4.2 mmol/L (3.4-5.1); Sodium 139 mmol/L (137-145); Total Protein 7.8 g/dL (6.3-8.2)
== END ==
PROVIDERS: PCP Physician Assistant; Referring Provider Internal Medicine Hematology & Oncology; Visit Provider Internal Medicine Hematology & Oncology
DX: C50.919 Malignant neoplasm of unspecified site of unspecified female breast (principal)
CPT/HCPCS: 36415; 80053; 85025

== ENCOUNTER → 2020-08-06 07:37 | Outpatient (CLI) | payer MEDICARE, BC, SELFPAY ==
[2018-10-31 18:02] VITALS: BMI 28.8
[2020-08-06 09:41] LABS: Cholesterol 154 mg/dL (140-199); HDL Cholesterol 61 mg/dL (40-60); LDL Cholesterol Calculated 54 mg/dL (<100); Triglycerides 196 mg/dL (35-150)
== END ==
PROVIDERS: PCP Nurse Practitioner; Referring Provider Nurse Practitioner; Visit Provider Nurse Practitioner
DX: E78.2 Mixed hyperlipidemia (principal); Z79.899 Other long term (current) drug therapy
CPT/HCPCS: 36415; 80061

== ENCOUNTER → 2020-08-22 08:14 | Outpatient (CLI) | payer MEDICARE, BC, SELFPAY ==
[2018-10-31 18:02] VITALS: BMI 28.8
--- NOTE | 2020-08-22 | DI.MG.S_ITS ---
BILATERAL DIGITAL SCREENING MAMMOGRAM 3D/2D WITH CAD: 08/22/2020 CLINICAL: Routine screening. Personal history of left breast cancer. Family history of breast cancer. Comparison is made to exams dated: 07/02/2019 mammogram, 06/30/2018 mammogram, and 06/29/2017 mammogram - [facility]. The tissue of both breasts is heterogeneously dense. This may lower the sensitivity of mammography. Current study was also evaluated with a Computer Aided Detection (CAD) system. There are benign calcifications in the left breast. There also are benign post operative findings in the left breast. No significant masses, calcifications, or other findings are seen in either breast. There has been no significant interval change. IMPRESSION: BENIGN There is no mammographic evidence of malignancy. A 1 year screening mammogram is recommended. This exam was interpreted at Station ID: [id number]. NOTE: For mammograms, a report in lay terms will be sent to the patient. Approximately 15% of breast malignancies will not be visualized mammographically. In the management of a palpable breast mass, a negative mammogram must not discourage biopsy of a clinically suspicious lesion. Electronically Signed By: Neptali pederson/raheel:08/22/2020 10:20:11 copy to: KAMILA HENDRIX letter sent: Normal Exam ACR BI-RADS Category 2: Benign Finding(s) 3342F
== END ==
PROVIDERS: PCP Nurse Practitioner; Referring Provider Nurse Practitioner; Visit Provider Nurse Practitioner
DX: Z12.31 Encounter for screening mammogram for malignant neoplasm of breast (principal); Z85.3 Personal history of malignant neoplasm of breast; Z80.3 Family history of malignant neoplasm of breast
CPT/HCPCS: 77063; 77067

== ENCOUNTER → 2020-10-30 14:36 | Outpatient (CLI) | payer MEDICARE, BC, SELFPAY ==
[2018-10-31 18:02] VITALS: BMI 28.8
--- NOTE | 2020-10-30 14:38 | DI.US.S_ITS ---
PROCEDURE: US PELVIC COMPLETE INDICATIONS: SNF USE OF TAMOXIFEN TECHNIQUE: Real-time scanning was performed of the pelvic organs, with image documentation. Additional endovaginal scanning was necessary due to incomplete visualization of the adnexal and endometrial structures by transabdominal scanning. COMPARISON: [facility], US, PELVIC COMPLETE, 07/29/2016, 10:52. FINDINGS: Uterus: Uterus is normal in size at 7.3 x 3.9 x 5.2 cm. The endometrium measures 26 mm in combined thickness. Endometrial canal is diffusely heterogeneous with microcystic change in increased vascularity. Ovaries: Left ovary not visualized. 11 mm simple right ovarian cyst. Other: No pathologic free abdominal or pelvic fluid. IMPRESSION: 1. Abnormal appearance endometrial complex which is thickened, heterogeneous and mildly vascular. Endometrial neoplastic process cannot be excluded and endometrial biopsy is recommended. 2. 11 mm simple right ovarian cyst. Dictated by: Ramiro Gilmore [facility] Interpreted: Juan Bates MD on 10/30/2020 at 15:39 Transcribed by: NAGI on 10/30/2020 at 15:41 Approved by: Juan Bates M.D. on 10/31/2020 at 9:32
== END ==
PROVIDERS: PCP Nurse Practitioner; Referring Provider Obstetrics & Gynecology; Visit Provider Obstetrics & Gynecology
DX: N83.291 Other ovarian cyst, right side (principal); R93.89 Abnormal findings on diagnostic imaging of other specified body structures; Z51.81 Encounter for therapeutic drug level monitoring; C80.1 Malignant (primary) neoplasm, unspecified; Z79.810 Long term (current) use of selective estrogen receptor modulators (SERMs)
CPT/HCPCS: 76856

== ENCOUNTER → 2020-12-15 13:20 | Outpatient (CLI) | payer MEDICARE, BC, SELFPAY ==
[2018-10-31 18:02] VITALS: BMI 28.8
--- NOTE | 2020-12-15 13:21 | DI.MG.S_ITS ---
UNILATERAL LEFT DIGITAL DIAGNOSTIC MAMMOGRAM 3D/2D POST LUMPECTOMY: 12/15/2020 CLINICAL: Left breast lump. Comparison is made to exams dated: 08/22/2020 mammogram, 07/02/2019 mammogram, 07/14/2018 mammogram, 06/30/2018 mammogram, 06/29/2017 mammogram, and 08/12/2017 mammogram - [facility]. The tissue of left breast is heterogeneously dense. This may lower the sensitivity of mammography. There are stable benign post operative changes in the left breast in the upper outer quadrant. There also are a stable benign area of calcified fat necrosis and biopsy clip in the left breast. No significant masses, calcifications, or other findings are seen in the breast. IMPRESSION: BENIGN There is no abnormality seen in the left breast to correspond with the reported palpable abnormality by the patient's physician; however, clinical followup is recommended. There is no mammographic evidence of malignancy. A 1 year screening mammogram is recommended. Future imaging is recommended as follows: 08/23/2021 screening mammogram. This exam was interpreted at Station ID: [id number]. NOTE: For mammograms, a report in lay terms will be sent to the patient. Approximately 15% of breast malignancies will not be visualized mammographically. In the management of a palpable breast mass, a negative mammogram must not discourage biopsy of a clinically suspicious lesion. Electronically Signed By: Felix Tavares M.D. ar/:12/15/2020 14:06:06 copy to: KAMILA HENDRIX letter sent: Clinical Evaluation ACR BI-RADS Category 2: Benign Finding(s) 3342F
== END ==
PROVIDERS: PCP Nurse Practitioner; Referring Provider Internal Medicine Hematology & Oncology; Visit Provider Internal Medicine Hematology & Oncology
DX: C50.412 Malignant neoplasm of upper-outer quadrant of left female breast (principal); N63.20 Unspecified lump in the left breast, unspecified quadrant
CPT/HCPCS: 77065; G0279

== ENCOUNTER → 2021-08-24 08:04 | Outpatient (CLI) | payer MEDICARE, BC, SELFPAY ==
[2018-10-31 18:02] VITALS: BMI 28.8
--- NOTE | 2021-08-24 08:05 | DI.MG.S_ITS ---
BILATERAL DIGITAL SCREENING MAMMOGRAM 3D/2D WITH CAD: 08/24/2021 CLINICAL: Routine screening. Family history of breast cancer. Comparison is made to exams dated: 08/22/2020 mammogram, 07/02/2019 mammogram, and 06/30/2018 mammogram - [facility]. The tissue of both breasts is heterogeneously dense. This may lower the sensitivity of mammography. Current study was also evaluated with a Computer Aided Detection (CAD) system. There is a biopsy clip in the left breast. No significant masses, calcifications, or other findings are seen in either breast. There has been no significant interval change. IMPRESSION: NEGATIVE There is no mammographic evidence of malignancy. A 1 year screening mammogram is recommended. This exam was interpreted at Station ID: [id number]. NOTE: For mammograms, a report in lay terms will be sent to the patient. Approximately 15% of breast malignancies will not be visualized mammographically. In the management of a palpable breast mass, a negative mammogram must not discourage biopsy of a clinically suspicious lesion. Electronically Signed By: Malia doran/raheel:08/24/2021 10:53:05 copy to: KAMILA HENDRIX letter sent: Normal Exam ACR BI-RADS Category 1: Negative 3341F
== END ==
PROVIDERS: PCP Nurse Practitioner; Referring Provider Internal Medicine Hematology & Oncology; Visit Provider Internal Medicine Hematology & Oncology
DX: Z12.31 Encounter for screening mammogram for malignant neoplasm of breast (principal); Z80.3 Family history of malignant neoplasm of breast
CPT/HCPCS: 77063; 77067

== ENCOUNTER → 2021-08-25 08:04 | Outpatient (CLI) | payer MEDICARE, BC, SELFPAY ==
[2018-10-31 18:02] VITALS: BMI 28.8
[2021-08-25 08:43] LABS: Alanine Aminotransferase 28 IU/L (<35); Albumin 4.4 g/dL (3.5-5.0); Albumin Globulin Ratio 1.4 (1.0-2.8); Alkaline Phosphatase 92 U/L (38-126); Aspartate Aminotransferase 34 IU/L (14-36); BUN Creatinine Ratio 22.4 (6-22); Bilirubin Total 0.8 mg/dL (0.2-1.3); Blood Urea Nitrogen 13 mg/dL (7-17); Calcium 9.2 mg/dL (8.4-10.2); Carbon Dioxide 26 mmol/L (22-32); Chloride 104 mmol/L (98-107); Cholesterol 194 mg/dL (140-199); Estimated Glomerular Filt Rate > 60 mL/min (>60); Globulin 3.2 g/dL (1.7-4.1); Glucose 102 mg/dL (80-110); HDL Cholesterol 69 mg/dL (40-60); HEMOLYSIS < 15 (0-50); LDL Cholesterol Calculated 97 mg/dL (<100); Potassium 4.1 mmol/L (3.4-5.1); Sodium 137 mmol/L (137-145); Total Protein 7.6 g/dL (6.3-8.2); Triglycerides 138 mg/dL (35-150)
[2021-08-25 09:01] LABS: Free T4, Direct Thyroxine 1.08 ng/dL (0.78-2.19)
[2021-08-25 09:15] LABS: Thyroid Stimulating Hormone 2.31 uIU/mL (0.47-4.68)
[2021-08-25 10:18] LABS: Creatinine Urine Random 32.9 mg/dL
[2021-08-25 10:22] LABS: Microalbumi Creatinin Ratio Ur 33.4 ug/mg CR (<30); Microalbumin Urine Random 1.1 mg/dL (0-1.6)
== END ==
PROVIDERS: PCP Nurse Practitioner; Referring Provider Nurse Practitioner; Visit Provider Nurse Practitioner
DX: E78.5 Hyperlipidemia, unspecified (principal); I10 Essential (primary) hypertension; R00.2 Palpitations; Z79.899 Other long term (current) drug therapy
CPT/HCPCS: 36415; 80053; 80061; 82043; 82570; 84439; 84443; 84481

== ENCOUNTER → 2021-11-30 07:05 | Outpatient (CLI) | payer MEDICARE, BC, SELFPAY ==
[2018-10-31 18:02] VITALS: BMI 28.8
--- NOTE | 2021-11-30 07:10 | DI.US.S_ITS ---
PROCEDURE: US PELVIC COMPLETE INDICATIONS: FOLLOW-UP ENDOMETRIUM TECHNIQUE: Real-time scanning was performed of the pelvic organs, with image documentation. Additional endovaginal scanning was necessary due to incomplete visualization of the adnexal and endometrial structures by transabdominal scanning. COMPARISON: [facility], US, US PELVIC COMPLETE, 10/30/2020, 14:55. FINDINGS: Uterus: Retroverted uterus measuring 8.0 x 5.1 cm. The endometrium is heterogeneous measuring up to 24 mm, previously 26 mm. There are multiple calcified fibroids. The largest fibroid is in the right anterior region measuring 2.7 x 1.6 x 3.1 cm. These are stable. Cervix and vagina are within normal limits. Ovaries: Right ovary measures 2.2 x 1.6 x 1.5 cm, for a volume of 2.7 cc. Stable 1.6 x 1.3 x 1.6 cm cyst. Left ovary is not well seen. Other: No pathologic free abdominal or pelvic fluid. IMPRESSION: Stable thickened and heterogeneous endometrium compared to 10/30/2020. With gynecologic consultation, follow-up ultrasound, MRI, and/or tissue sampling (if not already performed) are reasonable options. Multiple calcified fibroids. We strive to produce accurate, complete, and clear reports of imaging services. To assist us in improving patient care, this report was composed using standard report templates and voice recognition software. Therefore, it may contain abnormal punctuation, insertions and/or omissions. Occasional wrong-word or sound-alike substitutions may occur. Though we review the report and make efforts to correct it, we do recommend that the report be read carefully in proper context to recognize any text inaccuracies. Dictated by: Edwar Tan M.D. on 11/30/2021 at 9:07 Approved by: Edwar Tan M.D. on 11/30/2021 at 9:11
== END ==
PROVIDERS: PCP Nurse Practitioner; Referring Provider Obstetrics & Gynecology; Visit Provider Obstetrics & Gynecology
DX: D25.9 Leiomyoma of uterus, unspecified (principal); R93.89 Abnormal findings on diagnostic imaging of other specified body structures
CPT/HCPCS: 76830; 76856

== ENCOUNTER → 2021-12-21 09:12 | Outpatient (CLI) | payer MEDICARE, BC, SELFPAY ==
[2018-10-31 18:02] VITALS: BMI 28.8
[2021-12-21 12:15] LABS: COVID19 -Nasal RAPID Negative (Negative)
== END ==
PROVIDERS: PCP Nurse Practitioner; Visit Provider Surgery
DX: Z20.822 Contact with and (suspected) exposure to COVID-19 (principal); Z01.812 Encounter for preprocedural laboratory examination
CPT/HCPCS: 87635; C9803

== ENCOUNTER 2021-12-22 07:32 | Day surgery (SDC) | payer MEDICARE, BC, SELFPAY ==
[2018-10-31 18:02] VITALS: BMI 28.8
--- NOTE | 2021-12-22 | PATH_ITS ---
[facility] Accession Number: [id number] . 01 Material submitted: . PART A: colon - SIGMOID POLYP PART B: colon - TRANSVERSE COLON POLYP PART C: colon - CECUM POLYP . 01 Clinical history: . COLONOSCOPY . 01 Diagnosis: A. Sigmoid Colon Polyp, Biopsy: Hyperplastic polyp. . B. Transverse Colon Polyp, Biopsy: Tubular adenoma. . C. Cecal Polyp, Biopsy: Tubular adenoma. [facility] 12/23/2021 1055 Local . 01 Electronically signed: . David Boggs MD, PhD, Pathologist NPI- [id number] . 01 Gross description: . Part A: SIGMOID POLYP: Received in formalin are 2 fragment(s) of gómez, soft tissue measuring 0.1 x 0.1 x 0.1 cm to 0.3 x 0.2 x 0.2 cm submitted entirely in 1 cassette(s) Part B: TRANSVERSE COLON POLYP: Received in formalin are 3 fragment(s) of gómez, soft tissue measuring 0.1 x 0.1 x 0.1 cm to 0.3 x 0.3 x 0.3 cm submitted entirely in 1 cassette(s) Part C: CECUM POLYP: Received in formalin is 1 fragment(s) of gómez, soft tissue measuring 0.2 x 0.2 x 0.2 cm submitted entirely in 1 cassette(s) /ALMITA 12/22/2021 2341 Local . 01 Pathologist provided ICD-10: D12.3, D12.0 . 01 CPT . 698396, 215184, 440998 Specimen Comment: A courtesy copy of this report has been sent to [phone] Performed at: 01 [facility] [address] [place] [address], [place], [place] [id number] MD Eliud Cruz MD Phone: [phone]
[2021-12-22] MEDS: LACTATED RINGERS 1,000 ML 200 ML IV (07:44)
[2021-12-22 07:51] VITALS: BP 143/78; PULSE 80; RESP 18; TEMP 36.7; O2SAT 98; BMI 28.6
--- NOTE | 2021-12-22 08:23 | PM.HP.1 ---
History of Present Illness History of Present Illness Date Patient Seen: 12/22/21 Time Patient Seen: 08:23 Chief complaint: Colonoscopy Narrative: The patient presents for colorectal screening. Last colonoscopy 5 and half years ago normal. Her father had colon cancer. On further history denies any recent gastrointestinal symptoms. No nausea, vomiting, abdominal pain, loss of appetite, unexplained weight loss, change in bowel habits, diarrhea, constipation, melena, hematochezia, or bright red blood per rectum. 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 Grandfather No problems noted. Social History: household members none Tobacco & Substance use: Smoking Status Never smoker alcohol intake current alcohol intake frequency a few times a week Substance Use Type does not use Meds Home Medications and Allergies Home Medications Medication Instructions Recorded Confirmed Type multivitamin 1 tab PO DAILY 09/15/17 12/22/21 History Glucosamine 1 tab PO BID 12/29/17 12/22/21 History magnesium oxide 400 mg PO DAILY 10/19/18 12/22/21 History cholecalciferol (vitamin D3) 25 1,000 unit PO DAILY 05/14/19 12/22/21 History mcg (1,000 unit) capsule [place] 2 cap PO DAILY 10/25/19 12/22/21 History ascorbic acid (vitamin C) 1,000 mg 500 mg PO DAILY 02/21/20 12/22/21 History tablet (Vitamin C) zinc 50 mg tablet 50 mg DAILY 02/21/20 12/22/21 History lisinopril 10 See Rx Instructions .Route 09/02/21 12/22/21 Rx mg-hydrochlorothiazide 12.5 mg .COMPLEX #90 tabs tablet omega 1-vqa-mnj-fish oil 1,200 mg 1 cap PO .QD 09/02/21 12/22/21 History (144 mg-216 mg) capsule (Fish Oil) simvastatin 40 mg tablet See Rx Instructions .Route 09/02/21 12/03/21 Rx .COMPLEX #90 tabs tetanus-diphtheria toxoids-Td 2 Lf 0.5 ml IM ONCE #0.5 mL 09/02/21 12/03/21 Rx unit-2 Lf unit/0.5 mL IM suspension Allergies Allergy/AdvReac Type Severity Reaction Status Date / Time adhesive tape [ADHESIVE TAPE] Allergy Mild IRRITIATION Verified 12/22/21 07:18 STERI SRIPS Allergy Mild RASH Uncoded 12/22/21 07:18 Exam Vital Signs (past 8 hours): - 12/22/21 07:51 Temperature 98.1 F Pulse Rate 80 Respiratory Rate 18 Blood Pressure 143/78 H Pulse Oximetry 98 Oxygen Delivery Method Room Air Oxygen Delivery Method Room Air Narrative Exam Narrative: General adult woman alert oriented no acute distress Chest nonlabored respirations Abdomen soft nontender nondistended Assessment & Plan Assessment & Plan narrative: The patient requires colorectal screening and colonoscopy is recommended. Technical details were discussed. Risks, benefits, alternatives explained. Risks including but not limited to myocardial infarction, aspiration, bleeding, pain, missed lesion, incomplete examination, need for further radiographic studies, colonic perforation, and need for major abdominal surgery were discussed. All questions were answered to their satisfaction, and they are in agreement with this plan. Time Spent With Patient Critical Care time: I spent a total of [] minutes of critical care time on this patient's care today; this time is exclusive of procedural time.
[2021-12-22] MEDS: fentaNYL 250 MCG/5 ML INJ 75 MCG IV (08:36)
[2021-12-22] MEDS: MIDAZOLAM 5 MG/5 ML VIAL 4 MG IV (08:36)
--- NOTE | 2021-12-22 09:03 | PM.OP.COLON ---
Operative Date/Time/Diagnoses Date of procedure: 12/22/21 Time of procedure: 09:03 Pre-op diagnosis: Family history of colon cancer Post-op diagnosis: same Procedure & Clinicians Study performed: Colonoscopy and polypectomy Same procedure as scheduled: Yes Indications: Family history of colon cancer. Screening colonoscopy. Surgeon: Fransico Orlando Procedure Notes Procedure in detail: Medications: Conscious sedation using 4mg IV midazolam and 75mcg IV of fentanyl The history and physical was performed/updated and the patient is ASA class is 2. The procedure was discussed in detail with the patient. Potential risks complications including infection, bleeding, missed diagnosis, perforation, need for surgery, and were explained. Their questions were answered and informed consent was obtained. Patient was brought to the procedure room and placed standard monitoring equipment. The patient's vital signs were monitored continuously throughout the entire procedure. Prior to starting time-out was performed. The patient was placed in the left lateral recumbent position. Procedural sedation was administered. Examination began with a thorough inspection of the perianal area there was no evidence of fissures, fistulae, external hemorrhoids or cutaneous malignancy. The colonoscopy scope was then placed into the anal canal and was advanced to the cecum, which was identified by the ileocecal valve, the appendiceal orifice and the confluence of the taenia. The scope was then slowly withdrawn examining colon thoroughly in all directions, irrigating it of any residual stool. FINDINGS 1. Sigmoid. 5 mm polyp removed with biopsy forceps 2. Transverse colon. Less than 5 mm polyp removed with biopsy forceps. 3. Cecum 3 mm polyp removed with biopsy forceps The patient tolerated the procedure well. They will be discharged once criteria are met. The prep was of good/excellent quality. The withdrawl time was 8 minutes. The sedation time was 23minutes. Specimen(s): other (Sigmoid, transverse, cecal polyps) Complications: none Impression: Colonic polyps Post-procedure Recommendations: Colonoscopy in 5 years Disposition: same day surgery
[2021-12-22 09:05] VITALS: BP 124/65; PULSE 71; RESP 19; TEMP 36; O2SAT 99
[2021-12-22 09:10] VITALS: BP 118/58; PULSE 60; RESP 14; O2SAT 98
[2021-12-22 09:15] VITALS: BP 107/59; PULSE 62; RESP 16; O2SAT 99
[2021-12-22 09:20] VITALS: BP 120/60; PULSE 62; RESP 13; O2SAT 98
[2021-12-22 09:21] VITALS: BP 120/62; PULSE 72; RESP 16; O2SAT 99
--- NOTE | 2021-12-22 09:40 | SUR.PHASEII ---
Stable phase 2, left when ready left in stable condition.
== END 2021-12-22 09:40 | disposition home or self-care (01) ==
PROVIDERS: PCP Nurse Practitioner; Referring Provider Surgery; Visit Provider Surgery
PROC: 0DJD8ZZ Inspection of Lower Intestinal Tract, Via Natural or Artificial Opening Endoscopic (ICD-10-PCS; CPT 45378; principal; 2021-12-22 08:30)
DX: Z12.11 Encounter for screening for malignant neoplasm of colon (principal); Z80.0 Family history of malignant neoplasm of digestive organs; D12.3 Benign neoplasm of transverse colon; D12.0 Benign neoplasm of cecum
CPT/HCPCS: 45380; 99152; 99153; J2250; J3010

== ENCOUNTER → 2022-04-12 11:32 | Outpatient (CLI) | payer MEDICARE, BC, SELFPAY ==
[2018-10-31 18:02] VITALS: BMI 28.8
[2022-04-12 12:39] LABS: COVID19 -Nasal RAPID Negative (Negative)
== END ==
PROVIDERS: Radiology Diagnostic Radiology; PCP Nurse Practitioner; Referring Provider Nurse Practitioner; Visit Provider Nurse Practitioner
DX: Z20.822 Contact with and (suspected) exposure to COVID-19 (principal)
CPT/HCPCS: 87635; C9803

== ENCOUNTER → 2022-05-27 10:40 | Outpatient (CLI) | payer MEDICARE, BC, SELFPAY ==
[2018-10-31 18:02] VITALS: BMI 28.8
[2022-05-27 12:42] LABS: Add Manual Diff / Slide Review NO; Basophils Absolute Auto 0 /uL (0-100); Basophils Percent Auto 0.6 % (0-2); Eosinophils Absolute Auto 100 /uL (0-450); Eosinophils Percent Auto 0.8 % (2-4); Hematocrit 40.9 % (36-46); Hemoglobin 14.1 g/dL (12.0-16.0); Lymphocytes Absolute Auto 1400 /uL (1100-4500); Lymphocytes Percent Auto 19.7 % (25-40); Mean Corpuscular HGB Conc 34.4 % (30-36); Mean Corpuscular Hemoglobin 33.1 PG (26-34); Mean Corpuscular Volume 96.2 fL (80-100); Monocytes Absolute Auto 600 /uL (0-900); Monocytes Percent Auto 8.8 % (3-14); Neutrophils Absolute Auto 5100 /uL (1500-7000); Neutrophils Percent Auto 70.1 % (50-75); Platelet Count 231 X10^3/uL (150-400); Red Blood Cell Count 4.25 X10^6/uL (4.0-5.2); Red Cell Distribution Width 12.7 % (11.6-14.8); White Blood Cell Count 7.2 X10^3/uL (4.5-11.0)
[2022-05-27 14:37] LABS: Alanine Aminotransferase 39 IU/L (<35); Alkaline Phosphatase 84 U/L (38-126); Aspartate Aminotransferase 39 IU/L (14-36); BUN Creatinine Ratio 18.9 (6-22); Bilirubin Total 0.7 mg/dL (0.2-1.3); Blood Urea Nitrogen 10 mg/dL (7-17); Calcium 9.8 mg/dL (8.4-10.2); Carbon Dioxide 29 mmol/L (22-32); Chloride 102 mmol/L (98-107); Estimated Glomerular Filt Rate > 60 mL/min (>60); Glucose 101 mg/dL (80-110); HEMOLYSIS < 15 (0-50); Potassium 4.3 mmol/L (3.4-5.1); Sodium 140 mmol/L (137-145); Total Protein 8.1 g/dL (6.3-8.2)
[2022-05-27 15:18] LABS: Thyroid Stimulating Hormone 2.32 uIU/mL (0.47-4.68)
[2022-05-28 17:12] LABS: Albumin 4.6 g/dL (3.5-5.0); Albumin Globulin Ratio 1.3 (1.0-2.8); Globulin 3.5 g/dL (1.7-4.1)
== END ==
PROVIDERS: PCP Nurse Practitioner; Referring Provider Nurse Practitioner; Visit Provider Nurse Practitioner
DX: I48.0 Paroxysmal atrial fibrillation (principal)
CPT/HCPCS: 36415; 80053; 84443; 85025

== ENCOUNTER → 2022-08-02 07:36 | Outpatient (CLI) | payer MEDICARE, BC, SELFPAY ==
[2018-10-31 18:02] VITALS: BMI 28.8
--- NOTE | 2022-08-03 02:32 | DI.NM.S_ITS ---
DATE OF SERVICE: 08/02/2022 PROCEDURE: Exercise stress test. INDICATIONS: SVT. CARDIAC STRESS: The patient underwent exercise stress test under the supervision of an attending staff. She walked on Krishan protocol for 5 minutes and 41 seconds, achieved maximum heart rate of 149, which was 101 percent of target heart rate. Resting blood pressure 108/78 mmHg and peak blood pressure 180/80 mmHg. Achieved 7 METs of workload and functional aerobic impairment -2%. Baseline rhythm sinus with repolarization changes. During peak exercise, patient had 1-1.5 mm horizontal and upsloping ST depression in inferolateral leads. In 3 minutes in recovery upsloping ST depression became horizontal ST depression in inferolateral leads with prolonged recovery. Rare PVCs. No chest pain or anginal symptoms. However, patient felt fatigue and dyspnea. No sustained ventricular tachycardia. No obvious atrial fibrillation. The patient has resting intermittent PACs as well. CONCLUSION: Exercise stress test is abnormal for inducible ischemia which persisted late in recovery. No anginal symptoms however felt fatigue and dyspnea. Walked on Krishan protocol for 5 minutes and 41 seconds. Normal blood pressure and heart rate response. MESSI -2 percent. No significant arrhythmias other than some PACs at rest and some PVCs during exercise. No complicated arrhythmias. Consider repeating exercise stress test with imaging modality like echocardiogram or perfusion study. Britney Schwab - Omar/mario doc#: [id number]/job#: [id number] dd: 08/02/2022 16:57:00 dt: 08/03/2022 02:18:00 DICTATING /COPIES TO: Jackie Brothers MD COPIES MNE: ROB;
== END ==
PROVIDERS: PCP Nurse Practitioner; Referring Provider Nurse Practitioner; Visit Provider Nurse Practitioner
DX: I47.1 Supraventricular tachycardia (principal); I10 Essential (primary) hypertension; R94.39 Abnormal result of other cardiovascular function study
CPT/HCPCS: 93017

== ENCOUNTER → 2022-08-21 07:51 | Outpatient (CLI) | payer MEDICARE, BC, SELFPAY ==
[2018-10-31 18:02] VITALS: BMI 28.8
[2022-08-21 09:58] LABS: Creatinine Urine Random 123.9 mg/dL
[2022-08-21 10:01] LABS: Microalbumi Creatinin Ratio Ur 20.9 ug/mg CR (<30); Microalbumin Urine Random 2.6 mg/dL (0-1.6)
[2022-08-21 10:04] LABS: Cholesterol 175 mg/dL (140-199); HDL Cholesterol 69 mg/dL (40-60); LDL Cholesterol Calculated 78 mg/dL (<100); Triglycerides 139 mg/dL (35-150)
[2022-08-21 10:15] LABS: Free T3, Triiodothyronine Free 3.43 pg/mL (2.77-5.27); Free T4, Direct Thyroxine 0.97 ng/dL (0.78-2.19)
[2022-08-21 10:28] LABS: Thyroid Stimulating Hormone 2.48 uIU/mL (0.47-4.68)
[2022-08-23 17:23] LABS: HIV 1 & 2 Ab/Ag 4th Gen Combo NEGATIVE (NEGATIVE); Hep C Virus Ab w/Reflex Quant NEGATIVE s/c (NEGATIVE)
== END ==
PROVIDERS: PCP Nurse Practitioner; Referring Provider Nurse Practitioner; Visit Provider Nurse Practitioner
DX: E78.5 Hyperlipidemia, unspecified (principal); I10 Essential (primary) hypertension; Z79.899 Other long term (current) drug therapy; Z11.4 Encounter for screening for human immunodeficiency virus [HIV]; Z11.59 Encounter for screening for other viral diseases
CPT/HCPCS: 80061; 82043; 82570; 84439; 84443; 84481; 86803; 87389

== ENCOUNTER → 2022-08-25 09:09 | Outpatient (CLI) | payer MEDICARE, BC, SELFPAY ==
[2018-10-31 18:02] VITALS: BMI 28.8
--- NOTE | 2022-08-25 09:13 | DI.MG.S_ITS ---
BILATERAL DIGITAL SCREENING MAMMOGRAM 3D/2D WITH CAD: 08/25/2022 CLINICAL: Routine screening. Personal history of left breast cancer. Family history of breast cancer. Comparison is made to exams dated: 08/24/2021 mammogram, 08/22/2020 mammogram, 07/02/2019 mammogram, and 06/30/2018 mammogram - [facility]. Both breasts are heterogeneously dense, which may obscure small masses (category c / 51-75% glandular tissue). Current study was also evaluated with a Computer Aided Detection (CAD) system. There are benign calcifications in the left breast. There also are benign post operative findings in the left breast. No significant masses, calcifications, or other findings are seen in either breast. There has been no significant interval change. IMPRESSION: BENIGN There is no mammographic evidence of malignancy. A 1 year screening mammogram is recommended. This exam was interpreted at Station ID: [id number]. NOTE: For mammograms, a report in lay terms will be sent to the patient. Approximately 15% of breast malignancies will not be visualized mammographically. In the management of a palpable breast mass, a negative mammogram must not discourage biopsy of a clinically suspicious lesion. Electronically Signed By: Adair montoya/raheel:08/25/2022 16:25:14 copy to: HENRI WAGNER letter sent: Normal Exam ACR BI-RADS Category 2: Benign Finding(s) 3342F
== END ==
PROVIDERS: PCP Nurse Practitioner; Referring Provider Nurse Practitioner; Visit Provider Nurse Practitioner
DX: Z12.31 Encounter for screening mammogram for malignant neoplasm of breast (principal); Z80.3 Family history of malignant neoplasm of breast; Z85.3 Personal history of malignant neoplasm of breast
CPT/HCPCS: 77063; 77067

== ENCOUNTER → 2022-11-08 12:00 | Outpatient (CLI) | payer MEDICARE, BC, SELFPAY ==
[2018-10-31 18:02] VITALS: BMI 28.8
--- NOTE | 2022-11-08 12:01 | DI.US.S_ITS ---
PROCEDURE: US PELVIC COMPLETE INDICATIONS: PERIODIC SURVEILLANCE THICKENED ENDOMETRIAL STRIPE TECHNIQUE: Real-time scanning was performed of the pelvic organs, with image documentation. Additional endovaginal scanning was necessary due to incomplete visualization of the adnexal and endometrial structures by transabdominal scanning. COMPARISON: [facility], US, US PELVIC COMPLETE, 11/30/2021, 7:30. FINDINGS: Uterus: Uterus is retroverted and normal in size at 7.5 x 3.8 x 6.7 cm. The myometrium is heterogeneous. The endometrium measures 22.2 mm combined thickness. This was previously measured at 23.9 mm. Heterogeneous endometrial echotexture is seen. No endometrial fluid or discrete mass is seen. 2.3 x 0.8 x 2.4 cm intramural fibroid is seen in right anterior myometrium. 1.3 x 1.3 x 1.4 cm intramural fibroid is seen in left anterior myometrium. 1.3 x 0.6 x 0.9 cm intramural fibroid is seen in right anterior myometrium. Multiple calcifications also noted in uterus measures up to 5 x 3 x 6 mm in size in left mid endometrium and 1.1 x 0.5 x 0.8 cm in size in lower uterine segment. Ovaries: The right ovary measures 2.7 x 2.7 x 2.6 cm, with a calculated ovarian volume of 10.2 cc. The left ovary is not visualized.. Simple cyst is noted in right ovary measures 1.5 x 1.4 x 2.1 cm in size. Less than 12 follicles can be seen in right ovary. No adnexal masses are seen. Other: No pathologic free abdominal or pelvic fluid. IMPRESSION: 1. Thickened endometrium with heterogeneous endometrial echotexture concerning for hyperplasia. No definite endometrial mass or fluid is seen. 2. Heterogeneous myometrial echotexture with multiple uterine fibroids and calcifications as above. 3. Simple cyst is seen in right ovary. No solid appearing ovarian lesion. Left ovary is not visualized. No adnexal mass. We strive to produce accurate, complete, and clear reports of imaging services. To assist us in improving patient care, this report was composed using standard report templates and voice recognition software. Therefore, it may contain abnormal punctuation, insertions and/or omissions. Occasional wrong-word or sound-alike substitutions may occur. Though we review the report and make efforts to correct it, we do recommend that the report be read carefully in proper context to recognize any text inaccuracies. Dictated by: Edd Villela M.D. on 11/08/2022 at 17:09 Approved by: Edd Villela M.D. on 11/08/2022 at 17:12
--- NOTE | 2022-11-08 12:01 | DI.RAD.S_ITS ---
Bone Density Report Name: DAVID MORALES Age: 72 Sex: Female Ethnicity: White Date of : 1950 Indication: postmenopausal; screening for osteoporosis; Referring Provider: HENRI WAGNER Study: Bone densitometry was performed. Exam Date: November 08, 2022 Accession number: [id number] Bone Density: Region BMD T-score Z-score Classification AP Spine(L1, L2, L3) 1.004 -0.1 2.1 Normal Femoral Neck (Right) 0.780 -0.6 1.3 Normal Total Hip (Right) 0.880 -0.5 1.2 Normal Total Forearm (Left) 0.594 0.3 2.5 Normal 1/3 Forearm (Left) 0.640 -0.9 1.5 Normal UD Forearm (Left) 0.487 0.8 2.4 Normal World Health Organization criteria for BMD impression classify patients as: Normal (T-score at or above -1.0), Osteopenia (T-score between -1.0 and -2.5), or Osteoporosis (T-score at or below -2.5). 10-year Fracture Risk: FRAX not reported because: All T-scores for Spine Total, Hip Total, Femoral Neck at or above -1.0 Previous Exams: -- Region Exam Age BMD T-score BMD Change BMD Change Date g/cm2 vs Baseline vs Previous -- AP Spine (L1-L3) 11/08/2022 72 1.004 -0.1 0.019 (1.9%)# 0.019 (1.9%)# 07/02/2019 68 0.985 -0.3 Total Hip(Right) 11/08/2022 72 0.880 -0.5 0.002 (0.2%)# 0.002 (0.2%)# 07/02/2019 68 0.878 -0.5 -- *Denotes significance at 95% confidence level, LSC for AP Spine = 0.022 g/cm2, LSC for Total Hip = 0.027 g/cm2 # Denotes dissimilar scan types or analysis methods Impression: The patient has normal bone mass. No significant bone loss was observed. Discussion: BONE DENSITY IS ABOVE THE MINIMUM DESIRABLE LEVEL AT ALL SKELETAL SITES TESTED. This patient's bone mineral density is above the minimum desirable level (T-score -1.0 or better) at all sites measured. The patient should follow a healthful lifestyle (good nutrition with adequate calcium and vitamin D, and appropriate weight-bearing exercise). Follow-Up: Consider repeating this study in 5 years or sooner if there is some new clinical indication. Reported by: ALFREDITO PATEL M.D. on 11/08/2022 12:46:00 PM.
== END ==
PROVIDERS: PCP Nurse Practitioner; Referring Provider Nurse Practitioner; Visit Provider Nurse Practitioner
DX: M81.0 Age-related osteoporosis without current pathological fracture (principal); D25.9 Leiomyoma of uterus, unspecified; N83.201 Unspecified ovarian cyst, right side; Z78.0 Asymptomatic menopausal state
CPT/HCPCS: 76830; 76856; 77080; 77081

== ENCOUNTER → 2023-08-29 09:02 | Outpatient (CLI) | payer MEDICARE, BC, SELFPAY ==
[2018-10-31 18:02] VITALS: BMI 28.8
--- NOTE | 2023-08-29 09:03 | DI.MG.S_ITS ---
BILATERAL DIGITAL SCREENING MAMMOGRAM 3D/2D WITH CAD: 08/29/2023 CLINICAL: Routine screening. Family history of breast cancer. Breast cancer. Comparison is made to exams dated: 08/25/2022 mammogram, 08/24/2021 mammogram, 12/15/2020 mammogram, and 08/22/2020 mammogram - [facility]. There are scattered areas of fibroglandular density in both breasts (category b / 25%-50% glandular tissue). Current study was also evaluated with a Computer Aided Detection (CAD) system. There are benign calcifications in the left breast. There also are benign post operative findings in the left breast. No significant masses, calcifications, or other findings are seen in either breast. There has been no significant interval change. IMPRESSION: BENIGN There is no mammographic evidence of malignancy. A 1 year screening mammogram is recommended. This exam was interpreted at Station ID: [id number]. NOTE: For mammograms, a report in lay terms will be sent to the patient. Approximately 15% of breast malignancies will not be visualized mammographically. In the management of a palpable breast mass, a negative mammogram must not discourage biopsy of a clinically suspicious lesion. Electronically Signed By: Tracy mcdermott/raheel:08/29/2023 15:03:34 copy to: KAMILA HENDRIX letter sent: Normal Exam ACR BI-RADS Category 2: Benign Finding(s) 3342F
== END ==
LOC: MAMMO 09:03
PROVIDERS: PCP Nurse Practitioner; Referring Provider Internal Medicine Hematology & Oncology; Visit Provider Internal Medicine Hematology & Oncology
DX: Z12.31 Encounter for screening mammogram for malignant neoplasm of breast (principal); C50.919 Malignant neoplasm of unspecified site of unspecified female breast; Z80.3 Family history of malignant neoplasm of breast; R92.323 Mammographic fibroglandular density, bilateral breasts
CPT/HCPCS: 77063; 77067

== ENCOUNTER → 2023-09-05 06:45 | Outpatient (CLI) | payer MEDICARE, BC, SELFPAY ==
[2018-10-31 18:02] VITALS: BMI 28.8
[2023-09-05 07:11] LABS: Add Manual Diff / Slide Review NO; Basophils Absolute Auto 0 /uL (0-100); Basophils Percent Auto 0.7 % (0-2); Eosinophils Absolute Auto 100 /uL (0-450); Eosinophils Percent Auto 2.3 % (2-4); Hematocrit 40.9 % (36-46); Hemoglobin 13.9 g/dL (12.0-16.0); Lymphocytes Absolute Auto 1800 /uL (1100-4500); Lymphocytes Percent Auto 33.9 % (25-40); Mean Corpuscular HGB Conc 34.1 % (30-36); Mean Corpuscular Hemoglobin 33.2 PG (26-34); Mean Corpuscular Volume 97.4 fL (80-100); Monocytes Absolute Auto 600 /uL (0-900); Monocytes Percent Auto 11.2 % (3-14); Neutrophils Absolute Auto 2800 /uL (1500-7000); Neutrophils Percent Auto 51.9 % (50-75); Platelet Count 225 X10^3/uL (150-400); White Blood Cell Count 5.3 X10^3/uL (4.5-11.0)
[2023-09-05 07:23] LABS: Alanine Aminotransferase 27 IU/L (<35); Albumin 4.4 g/dL (3.5-5.0); Albumin Globulin Ratio 1.4 (1.0-2.8); Alkaline Phosphatase 70 U/L (38-126); Aspartate Aminotransferase 32 IU/L (14-36); BUN Creatinine Ratio 23.5 (6-22); Blood Urea Nitrogen 12 mg/dL (7-17); Calcium 9.4 mg/dL (8.4-10.2); Carbon Dioxide 29 mmol/L (22-32); Chloride 103 mmol/L (98-107); Estimated Glomerular Filt Rate > 60 mL/min (>60); Globulin 3.2 g/dL (1.7-4.1); Glucose 101 mg/dL (80-110); HEMOLYSIS < 15 (0-50); Potassium 4.2 mmol/L (3.4-5.1); Sodium 136 mmol/L (137-145); Total Protein 7.6 g/dL (6.3-8.2)
== END ==
PROVIDERS: PCP Nurse Practitioner; Referring Provider Internal Medicine Hematology & Oncology; Visit Provider Internal Medicine Hematology & Oncology
DX: C50.919 Malignant neoplasm of unspecified site of unspecified female breast (principal)
CPT/HCPCS: 36415; 80053; 85025

== ENCOUNTER → 2023-12-26 07:36 | Outpatient (CLI) | payer MEDICARE, BC, SELFPAY ==
[2018-10-31 18:02] VITALS: BMI 28.8
--- NOTE | 2023-12-26 07:38 | DI.US.S_ITS ---
PROCEDURE: US PELVIC COMPLETE INDICATIONS: ANNUAL F/U THICKENED ENDOMETRIAL STRIPE TECHNIQUE: Real-time scanning was performed of the pelvic organs, with image documentation. Additional endovaginal scanning was necessary due to incomplete visualization of the adnexal and endometrial structures by transabdominal scanning. COMPARISON: [facility], US, US PELVIC COMPLETE, 11/08/2022, 12:13. FINDINGS: Uterus: Uterus is retroverted and normal in size at 8.1 x 8.0 x 4.5 cm. The myometrium is heterogeneous. The endometrium measures 15 mm compared to 20/2 0.2 mm combined thickness. Multiple fibroids are present the largest measuring 3.0 x 2.5 x 2.1 cm compared to 2.3 x 0.8 x 2.4 cm. Ovaries: The right ovary measures 2.9 x 2.5 x 1.8 cm, with a calculated ovarian volume of 6.8 cc. The left ovary measures 2.8 x 1.7 x 1.5 cm, with a calculated ovarian volume of 3.7 cc. Simple right ovarian cyst measuring 1.5 x 2.1 x 1.4 cm. Other: No pathologic free abdominal or pelvic fluid. IMPRESSION: Thickened endometrium in a postmenopausal patient although mildly decreased compared to prior exam. This may be wireless sales representative endometrial hyperplasia. Underlying malignancy is felt to be less likely given mild regression compared to 202. However, recommend endometrial sampling as indicated as well as interval imaging follow-up. We strive to produce accurate, complete, and clear reports of imaging services. To assist us in improving patient care, this report was composed using standard report templates and voice recognition software. Therefore, it may contain abnormal punctuation, insertions and/or omissions. Occasional wrong-word or sound-alike substitutions may occur. Though we review the report and make efforts to correct it, we do recommend that the report be read carefully in proper context to recognize any text inaccuracies. Dictated by: Gaby Becker M.D. on 12/26/2023 at 19:25 Approved by: Gaby Becker M.D. on 12/26/2023 at 19:27
== END ==
LOC: US 07:37
PROVIDERS: PCP Nurse Practitioner; Referring Provider Obstetrics & Gynecology; Visit Provider Obstetrics & Gynecology
DX: R93.89 Abnormal findings on diagnostic imaging of other specified body structures (principal); D25.9 Leiomyoma of uterus, unspecified; N83.291 Other ovarian cyst, right side; Z92.29 Personal history of other drug therapy
CPT/HCPCS: 76830; 76856

== ENCOUNTER 2024-02-09 06:40 | Day surgery (SDC) | payer MEDICARE, BC, SELFPAY ==
[2018-10-31 18:02] VITALS: BMI 28.8
[2024-02-08 07:58] VITALS: BMI 29.8
--- NOTE | 2024-02-09 | PATH_ITS ---
[facility] Accession Number: [id number] No. of containers..01 Tissue . 01 Material submitted: . endometrium - ENDOMETRIAL CURETTINGS . 01 Diagnosis: ENDOMETRIUM, CURETTINGS: Sparse sample composed of scant strips of inactive glandular endometrium. No significant cytologic atypia and no malignancy. [facility] 02/13/2024 1153 Local . 01 Electronically signed: . Elisa Hamilton MD, Pathologist NPI- [id number] . 01 Gross description: . Received in formalin with two patient identifiers and endometrial curettings, are multiple gómez to brown soft tissue fragments admixed with mucoid material received on Telfa paper aggregating to 1.8 x 0.8 x 0.2 cm. Filtered and submitted in A1. ([id number]) /MRV 02/10/2024 1810 Local . 01 Pathologist provided ICD-10: N95.0, N93.9 . 01 CPT . 962207 Specimen Comment: A courtesy copy of this report has been sent to [phone] Performed at: [address] [address], [place], [place] [id number] MD Eliud Cruz MD Phone: [phone]
[2024-02-09 07:05] VITALS: BP 108/67; PULSE 62; RESP 16; TEMP 36.4; O2SAT 96; BMI 29.2
[2024-02-09] MEDS: ACETAMINOPHEN 325 MG TABLET 975 MG PO (07:14)
[2024-02-09] MEDS: LACTATED RINGERS 1,000 ML 42 ML IV (07:17)
--- NOTE | 2024-02-09 07:29 | PM.GYNHP.1 ---
History of Present Illness History of Present Illness Reason for admission: other (Thickened endometrial lining) Narrative: Britney Schwab is a 73 year old female 3 para 3 who presents for a D&C hysteroscopy due to a 15 mm endometrial lining. Patient previously on tamoxifen for 5 years, now off for 3 years. 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 Grandfather No problems noted. Social History household members: none Smoking Status: Never smoker second hand exposure: No alcohol intake: current substance use type: does not use Meds Home Medications and Allergies Home Medications Medication Instructions Recorded Confirmed Type multivitamin 1 tab PO DAILY 09/15/17 02/09/24 History Glucosamine 1 tab PO BID 12/29/17 02/09/24 History magnesium oxide 400 mg PO DAILY 10/19/18 02/09/24 History cholecalciferol (vitamin D3) 25 1,000 unit PO DAILY 05/14/19 02/09/24 History mcg (1,000 unit) capsule [place] 2 cap PO DAILY 10/25/19 02/09/24 History ascorbic acid (vitamin C) 1,000 mg 500 mg PO DAILY 02/21/20 02/09/24 History tablet (Vitamin C) zinc 50 mg tablet 50 mg DAILY 02/21/20 02/09/24 History omega 8-evf-fch-fish oil 1,200 mg 1 cap PO .QD 09/02/21 02/09/24 History (144 mg-216 mg) capsule (Fish Oil) apixaban 5 mg tablet (Eliquis) 5 mg PO BID 09/06/22 02/09/24 History lisinopril 10 1 tab PO DAILY #90 tabs 09/14/23 02/09/24 Rx mg-hydrochlorothiazide 12.5 mg tablet simvastatin 40 mg tablet See Rx Instructions .Route 10/26/23 02/09/24 Rx .COMPLEX #90 tabs metoprolol succinate 50 mg 50 mg PO DAILY 12/29/23 02/09/24 History tablet,extended release 24 hr Allergies Allergy/AdvReac Type Severity Reaction Status Date / Time adhesive tape [ADHESIVE TAPE] AdvReac Mild IRRITIATION Verified 02/09/24 07:02 STERI SRIPS Allergy Mild RASH Uncoded 02/09/24 07:02 Exam Vital Signs (past 8 hours): - 02/09/24 07:05 Temperature 97.6 F Pulse Rate 62 Respiratory Rate 16 Blood Pressure 108/67 Pulse Oximetry 96 Oxygen Delivery Method Room Air Oxygen Delivery Method Room Air Narrative Exam Narrative: HEENT: No thyromegaly, no anterior cervical or supraclavicular lymphadenopathy. Lungs:Clear to auscultation bilaterally, no wheezes. Cardiovascular: Regular rate and rhythm, no murmurs, rubs, or gallops. Abdomen: No scars. No hepatosplenomegaly. No masses palpable. External genitalia: Normal Vagina: Normal Cervix: Normal Bimanual exam: 7 Week size anteverted uterus. Mobile. Extremities: No edema Assessment & Plan Assessment & Plan narrative: Assessment: 73-year-old 3 para 3 with endometrial hyperplasia, history of breast cancer and 5 years of tamoxifen use. Now off of tamoxifen x3 years Increased thickening of the lining of the uterus Plan: D&C hysteroscopy with possible polypectomy The risks, benefits, and alternatives to the procedure were explained to the patient. The risks including bleeding, infection, and uterine perforation. She understands these risks and agrees to proceed. A full par Q was held and consent form was signed. Time-Based Coding :: [TOTAL MINUTES] spent with patient and on the chart (including review of chart, obtaining history, exam, reviewing outside data, placing orders, documenting exam and treatment plan, and counseling patient) on [DATE].
--- NOTE | 2024-02-09 07:32 | PM.PREOP ---
Pre-operative Note Interval Note History & Physical reviewed/Exam performed by Physician: Yes Changes to H&P: No H&P completed within 30 days and has changed as indicated here:: 02/09/24
--- NOTE | 2024-02-09 07:56 | SUR.OPER ---
Lithotomy on padded OR bed, head on pillow, arms secured on padded arm boards at <90 degrees abduction. Legs secured in padded yellow fins stirrups.
[2024-02-09 08:22] VITALS: BP 140/61; PULSE 60; RESP 16; TEMP 36.4; O2SAT 98
[2024-02-09 08:27] VITALS: BP 112/85; PULSE 61; RESP 16; TEMP 36.2; O2SAT 96
[2024-02-09 08:32] VITALS: BP 134/58; PULSE 54; RESP 16; TEMP 36.2; O2SAT 98
--- NOTE | 2024-02-09 08:33 | PM.GYNOP.1 ---
Operative Date/Time/Diagnoses Date of procedure: 02/09/24 Time of procedure: 08:33 Pre-op diagnosis: Endometrial hyperplasia History of tamoxifen use Post-op diagnosis: same Procedure & Clinicians Procedure: Procedures Operation Date: 02/09/24 07:45 Actual Procedure Side Surgeon p Hysteroscopy D&C, ENDOMETRIAL CURETTINGS Anh Brumfield MD Indications: 73-year-old 3 para 3 endometrial hyperplasia that is worsening History of breast cancer and tamoxifen use for 5 years Surgeon: Anh Brumfield Anesthesia Type: General (LMA) Operative Notes Findings: 7 week size anteverted uterus Both fallopian tube ostia observed No thickening of the lining of the uterus At the fundus there was question of whether there were some adhesions where anterior and posterior lara were sticking together, which might have gave the impression of hyperplasia on ultrasound Closure Type: not applicable Specimen(s): endometrial curettings Estimated blood loss (mL): 5 Blood products transfused: none Procedure in detail: After informed consent was obtained, the patient was taken to the operating room where she was placed in the dorsal supine position. After adequate LMA general anesthesia was achieved, she was placed in the dorsal lithotomy position, and prepped and draped in the usual sterile fashion. A time-out was performed. A bivalve speculum was placed into the vagina and the anterior lip of the cervix was grasped with a single-tooth tenaculum. The cervical os was sequentially dilated until the hysteroscope could pass easily into the endometrial cavity. Both fallopian tube ostia were observed. There appeared to be possible adhesions at the fundus of the uterus which may have caused the thickening on the ultrasound. There was no actual thickening of the endometrium. The hysteroscope was removed. Sharp curettage was performed yielding a minimal amount of endometrial curettings. The instruments were removed from the uterus. The single-tooth tenaculum was removed from the anterior lip of the cervix. The bivalve speculum was removed from the vagina. Sponge, lap, and instrument counts were correct x2. The patient tolerated the procedure well, and was taken to PACU in stable condition. Complications: none Post-operative Condition: stable Disposition: PACU Plan for aftercare: Home after recovery
[2024-02-09 08:38] VITALS: BP 132/58; PULSE 53; RESP 16; TEMP 36.2; O2SAT 98
== END 2024-02-09 09:05 | disposition home or self-care (01) ==
PROVIDERS: Referring Provider Obstetrics & Gynecology; Visit Provider Obstetrics & Gynecology
PROC: 0UDB8ZZ Extraction of Endometrium, Via Natural or Artificial Opening Endoscopic (ICD-10-PCS; CPT 58558; principal; 2024-02-09 07:45)
DX: N85.00 Endometrial hyperplasia, unspecified (principal)
CPT/HCPCS: 58558; J1100; J2405; J2704; J3010

== ENCOUNTER → 2024-08-31 07:40 | Outpatient (CLI) | payer MEDICARE, OTHER, SELFPAY ==
[2018-10-31 18:02] VITALS: BMI 28.8
--- NOTE | 2024-08-31 07:43 | DI.MG.S_ITS ---
MM screening mammo BI: 08/31/2024. BI-RADS: 2 CLINICAL: 73-year old female for bilateral screening mammogram. No Tyrer-Cuzick risk score calculation due to the patient's personal history of breast cancer. Patient reports a history of left breast carcinoma diagnosed at age 65. Status-post left lumpectomy with hormonal therapy. Current reported family history of breast cancer: mother and paternal aunt's daughter. PRIOR EXAMS 08/29/2023, 08/25/2022, 08/24/2021, 12/15/2020, 08/22/2020. MAMMOGRAPHY TECHNIQUE: 2D and 3D (tomosynthesis) digital mammographic views obtained, with additional images as needed for full coverage. Current study was also evaluated with a Computer Aided Detection (CAD) system. DENSITY B. There are scattered areas of fibroglandular density. MAMMOGRAPHY FINDINGS Right: No suspicious mass, asymmetry, microcalcification, or other abnormality seen. Left: Biopsy marker present on the left. Benign-appearing calcification and post-surgical changes noted on the left. There are no suspicious masses, calcifications, or other findings in the breast. IMPRESSION: Right * No evidence of malignancy. Left * No evidence of malignancy with benign findings. RECOMMENDATIONS Bilateral * Annual screening mammography. OVERALL ASSESSMENT CATEGORY BI-RADS-2: Benign. The [employer] recommends annual screening mammography beginning at age 40 for women with average risk of breast cancer. ELECTRONICALLY SIGNED: Adair Mora M.D. on 08/31/2024 at 09:31:10 AM PT Interpreting Station ID: [id number]
== END ==
PROVIDERS: PCP Nurse Practitioner Family; Referring Provider Nurse Practitioner Family; Visit Provider Nurse Practitioner Family
DX: Z12.31 Encounter for screening mammogram for malignant neoplasm of breast (principal); Z85.3 Personal history of malignant neoplasm of breast; Z80.3 Family history of malignant neoplasm of breast
CPT/HCPCS: 77063; 77067

== ENCOUNTER → 2024-09-29 08:00 | Outpatient (CLI) | payer MEDICARE, OTHER, SELFPAY ==
[2018-10-31 18:02] VITALS: BMI 28.8
[2024-09-29 09:08] LABS: Add Manual Diff / Slide Review NO; Basophils Absolute Auto 0 /uL (0-100); Basophils Percent Auto 0.8 % (0-2); Eosinophils Absolute Auto 100 /uL (0-450); Eosinophils Percent Auto 2.2 % (2-4); Hematocrit 41.1 % (36-46); Lymphocytes Absolute Auto 1600 /uL (1100-4500); Lymphocytes Percent Auto 31.3 % (25-40); Mean Corpuscular HGB Conc 34.1 % (30-36); Mean Corpuscular Hemoglobin 33.1 PG (26-34); Mean Corpuscular Volume 97.1 fL (80-100); Monocytes Absolute Auto 600 /uL (0-900); Monocytes Percent Auto 12.3 % (3-14); Neutrophils Absolute Auto 2700 /uL (1500-7000); Neutrophils Percent Auto 53.4 % (50-75); Platelet Count 219 X10^3/uL (150-400); Red Blood Cell Count 4.23 X10^6/uL (4.0-5.2); Red Cell Distribution Width 12.7 % (11.6-14.8)
[2024-09-29 09:44] LABS: Alanine Aminotransferase 33 IU/L (<35); Albumin 4.3 g/dL (3.5-5.0); Albumin Globulin Ratio 1.4 (1.0-2.8); Alkaline Phosphatase 71 U/L (38-126); Aspartate Aminotransferase 38 IU/L (14-36); BUN Creatinine Ratio 19.7 (6-22); Bilirubin Total 1.3 mg/dL (0.2-1.3); Blood Urea Nitrogen 12 mg/dL (7-17); Calcium 9.6 mg/dL (8.4-10.2); Carbon Dioxide 29 mmol/L (22-32); Chloride 98 mmol/L (98-107); Cholesterol 195 mg/dL (140-199); Creatinine Urine Random 124.36 mg/dL; Estimated Glomerular Filt Rate > 60 mL/min (>60); Glucose 105 mg/dL (70-99); HDL Cholesterol 62 mg/dL (40-60); HEMOLYSIS < 15 (0-50); LDL Cholesterol Calculated 108 mg/dL (<100); Potassium 4.4 mmol/L (3.4-5.1); Sodium 134 mmol/L (137-145); Total Protein 7.3 g/dL (6.3-8.2); Triglycerides 127 mg/dL (35-150)
[2024-09-29 09:49] LABS: Microalbumin Urine Random 1.6 mg/dL (0-1.6)
[2024-09-29 10:02] LABS: Free T3, Triiodothyronine Free 3.73 pg/mL (2.77-5.27); Free T4, Direct Thyroxine 1.08 ng/dL (0.78-2.19)
[2024-09-29 10:15] LABS: Thyroid Stimulating Hormone 2.07 uIU/mL (0.47-4.68)
== END ==
PROVIDERS: Nurse Practitioner; PCP Nurse Practitioner Family; Referring Provider Nurse Practitioner Family; Visit Provider Nurse Practitioner Family
DX: I48.91 Unspecified atrial fibrillation (principal); I10 Essential (primary) hypertension; E78.5 Hyperlipidemia, unspecified; C80.1 Malignant (primary) neoplasm, unspecified; C50.919 Malignant neoplasm of unspecified site of unspecified female breast; Z79.01 Long term (current) use of anticoagulants; Z79.899 Other long term (current) drug therapy
CPT/HCPCS: 36415; 80053; 80061; 82043; 82570; 84439; 84443; 84481; 85025